=== PATIENT | male | born 1940 | race Caucasian/White ===

== ENCOUNTER 2017-12-31 19:34 | Inpatient (IN) | payer OTHER, BC ==
--- NOTE | 2017-12-31 19:39 | PDOC ---
History of Present Illness - History of Present Illness Initial Comments: 12/31/17 20:19 The patient is a 77 year old male with a significant past medical history of COPD, CAD, CVA, diabetes, HTN, hypercholesterolemia, and thyroid disease who presents to the ER with wheezing today. Patient states he had a cold over the past week and noticed the wheezing today. Patient states he was a former smoker for over 30 years, and smoked at least one pack per day. Patient states he had pneumonia in the past and was concerned about the wheezing today prompting him to come to the ER for an evaluation. Patient also admits to coughing white mucus occasionally. Patient denies having to use an inhaler in the past. The patient denies chest pain, shortness of breath, headache, and dizziness. Denies fever, chills, nausea, vomit, diarrhea, and constipation. Denies dysuria, frequency, urgency, and hematuria. Allergies: NKA Past surgical history: None reported. Social history: Former smoker. No reported drug or alcohol use. Adult ROS General: No fevers or chills, no weakness, no weight loss HEENT: No change in vision. No sore throat,. No ear pain CardioVascular: No chest pain or shortness of breath Respiratory: (+) Cough. (+) Wheezing. Gastrointestinal: no nausea, vomiting, diarrhea or constipation, No rectal bleeding Genitourinary: No dysuria, hematuria, or frequency Musculoskeletal: No joint or muscle pain or swelling Neurologic: No headache, vertigo, dizziness or loss of consciousness Psychiatric: nor depression Skin: No rashes or easy bruising Endocrine: no increased thirst or abnormal weight change Allergic: no skin or latex allergy All other systems reviewed and normal Adult Exam: General: (+) Morbidly obese.No acute distress HEENT: Throat: Normal, tonsils normal, no erythema or exudate Neck: Supple, no meningeal signs, no lymphadenopathy Eyes::Pupils equal reactive and round, extraocular motion intact Chest: Nontender to palpation Cardiac: S1-S2 normal, regular rate and rhythm, no murmurs rubs or gallops Respiratory: (+) Moderate left sided expiratory wheezing. (+) Mild expiratory wheezing on the right. (+) Decreased breath sounds bilaterally at the bases. Extremities: Warm, dry, no cyanosis, clubbing, or edema Skin: No rashes Neuro: Alert and oriented x3, nonfocal exam, grossly intact, normal gait Psych: Normal mood and affect <Mirela Pierre - Last Filed: 12/31/17 21:44> - General History Source: Patient Exam Limitations: No Limitations - History of Present Illness Initial Comments: 12/31/17 20:34 A portion of this note was documented by scribe services under my direction. I have reviewed the details of the note, within reason, and agree with the documentation. The case summary and management plan written by me. Chest x-ray no acute pathology EKG: Normal sinus rhythm at a rate is 72, first-degree AV block, no acute ST-T wave changes, left axis deviation when comparison with EKG on February 2015 no significant change. 12/31/17 21:11 Medical decision making: This is a 77-year-old male who comes in complaining of some shortness of breath and wheezing. Patient is also noted to have a dry nonproductive cough. Patient's EKG is unchanged from prior and his chest x-ray shows no acute pathology. Labs are sent for CBC, comp and EKG. Patient given a DuoNeb and some Decadron. Patient symptoms are most likely secondary to some COPD even though he denies history of COPD in the past. However given the fact that he is having some wheezing with a significant cardiac history I will rule out cardiac causes for his wheezing in addition to treating him. 12/31/17 21:40 Patient's heart squares 5 based on his age multiple risk factors and an abnormal EKG. Patient's troponin was measurable at 0.03. Patient wheezing is improved after a DuoNeb however I will bring him in to an observation bed overnight to rule him out and to continue to treat him for exacerbation of COPD Hospitalist was contacted and patient will be placed in observation telemetry bed Dr. Carr is the admitting hospitalist <Bird Dent I - Last Filed: 12/31/17 21:47> - General Chief Complaint: Respiratory Stated Complaint: WHEEZING Time Seen by Provider: 12/31/17 19:37 Past History <Mirela Pierre - Last Filed: 12/31/17 21:44> - Past Medical History Anemia: No Cardiac Disorders: Yes (CAD) CVA: Yes COPD: Yes Diabetes: Yes HTN: Yes Hypercholesterolemia: Yes Thyroid Disease: Yes - Surgical History Appendectomy: Yes Cardiac Surgery: Yes (BYPASS X5) - Suicide/Smoking/Psychosocial Hx Smoking Status: Yes Smoking History: Former smoker Have you smoked in the past 12 months: Yes Number of Cigarettes Smoked Daily: 10 If you are a former smoker, when did you quit?: 05/20 Cigars Per Day: 1 'Breaking Loose' booklet given: 07/08/15 Hx Alcohol Use: Yes Drug/Substance Use Hx: No Substance Use Type: Alcohol Hx Substance Use Treatment: No <Bird Dent I - Last Filed: 12/31/17 21:47> - Past Medical History Allergies/Adverse Reactions: Allergies Allergy/AdvReac Type Severity Reaction Status Date / Time No Known Allergies Allergy Verified 02/15/16 11:34 Home Medications: Ambulatory Orders Ascorbate Calcium/Bioflavonoid [Eileen-C 1,000 mg Tablet] 1 each PO DAILY Atorvastatin Ca [Lipitor] 40 mg PO HS 10/12/13 Levothyroxine [Synthroid -] 50 mcg PO DAILY 10/12/13 Potassium Chloride [K-Dur] 20 meq PO DAILY 01/08/14 Furosemide [Lasix -] 40 mg PO DAILY #60 04/22/14 Amlodipine Besylate [Norvasc -] 10 mg PO DAILY #30 tablet 02/19/15 Carbidopa/Levodopa [Carbidopa-Levo ER 50-200 Tab] 1 each PO TID 12/31/17 Meloxicam 7.5 mg PO DAILY 12/31/17 Metformin HCl [Metformin HCl ER] 500 mg PO BID 12/31/17 Olmesartan Medoxomil [Benicar (Nf)] 40 mg PO DAILY 12/31/17 Rabeprazole Sodium [Aciphex] 20 mg PO DAILY 12/31/17 Silodosin [Rapaflo] 4 mg PO DAILY 12/31/17 *Physical Exam - Vital Signs Last Vital Signs Temp Pulse Resp BP Pulse Ox 97.4 F L 88 20 173/83 H 97 12/31/17 19:36 12/31/17 19:36 12/31/17 19:36 12/31/17 19:36 12/31/17 19:36 <Mirela Pierre - Last Filed: 12/31/17 21:44> Heart Score/ECG Review - History History: Slightly suspicious - Electrocardiogram EKG: Non specific repolarization disturbance - Age Age: >/= 65 - Risk Factors Based on the list above the patient has:: >/=3 risk factors or Hx atherosclerotic disease - Troponin Troponin: </= normal limit - Score Heart Score - Total: 5 <Bird Dent I - Last Filed: 12/31/17 21:47> ED Treatment Course - LABORATORY CBC & Chemistry Diagram: 12/31/17 20:50 12/31/17 20:50 <Mirela Pierre - Last Filed: 12/31/17 21:44> - LABORATORY CBC & Chemistry Diagram: 12/31/17 20:50 12/31/17 20:50 <Bird Dent I - Last Filed: 12/31/17 21:47> *DC/Admit/Observation/Transfer - Attestations Scribe Attestion: 12/31/17 20:30 Documentation prepared by Mirela Pierre, acting as medical coordinator pesticide use for Bird Dent MD. <Mirela Pierre - Last Filed: 12/31/17 21:44> - Discharge Dispostion Decision to Admit order: Yes <Bird Dent I - Last Filed: 12/31/17 21:47> Diagnosis at time of Disposition: COPD exacerbation, ASHD (arteriosclerotic heart disease) - Referrals Referrals: James Wren MD [Primary Care Provider] - - Patient Instructions - Post Discharge Activity
[2017-12-31] MEDS ORDERED: ALBUTEROL SO4 2.5/IPRATROPIUM 0.5 INH SOL 3 ML VIAL.NEB. NEB ONE ×4 (20:42→21:51)
[2017-12-31] MEDS ORDERED: DEXAMETHASONE SOD PHOSPHATE 10 MG/1 ML VIAL IVPUSH ONE (20:42)
[2017-12-31] MEDS ORDERED: DEXAMETHASONE SOD PHOSPHATE 10 MG/1 ML VIAL ONE (20:46)
[2017-12-31 21:15] LABS: BASO % 1.1 % (0-2.0); EOS % 2.7 % (0-4.5); HEMOGLOBIN 13.9 GM/dl (11.7-16.9); LYMPH % 26.8 % (8-40); MCH 31.7 pg (25.7-33.7); MCHC 33.1 g/dl (32.0-35.9); MEAN CELL VOLUME 95.8 fl (80-96); MEAN PLT VOLUME 9.9 fl (7.5-11.1); MONO % 16.4 % (3.8-10.2); PLATELET COUNT 142 K/MM3 (134-434); RBC 4.39 M/mm3 (4.00-5.60); RDW 12.6 % (11.9-15.9); WHITE BLOOD COUNT 4.8 K/mm3 (4.0-10.8)
[2017-12-31 21:20] LABS: ALBUMIN 3.3 g/dl (3.5-5.0); ALK PHOS 82 U/L (32-92); ANION GAP 13 MMOL/L (8-16); BILIRUBIN,TOTAL 0.9 mg/dl (0.2-1.0); BLOOD UREA NITROGEN 21 mg/dl (7-18); CALCIUM 8.7 mg/dl (8.4-10.2); CHLORIDE 105 mmol/L (98-107); CO2 21 mmol/L (22-28); CREATININE 1.1 mg/dl (0.6-1.3); GLUCOSE,RANDOM 201 mg/dl (74-106); POTASSIUM 3.3 mmol/L (3.5-5.1); SGOT/AST 18 U/L (10-42); SGPT/ALT 5 U/L (10-40); SODIUM 139 mmol/L (136-145); TOT PROT 6.3 g/dl (6.4-8.3)
[2017-12-31] MEDS ORDERED: POTASSIUM CHLORIDE TABS 20 MEQ TABLET.ER (FP) PO ONE ×2 (22:07→22:09)
--- NOTE | 2017-12-31 22:08 | HP ---
Admitting History and Physical - Primary Care Physician PCP: James Wren - Admission Chief Complaint: SOB, Wheezing History of Present Illness: This is a 77 y/o man with a PMHx of COPD, CHF, CAD s/p CABG (2006), HTN, HLD, CVA, PVD, DM, Morbid Obesity, Hypothyroidism. Who presents to the ED with increased SOB and wheezing x today. Patient reports having URI symptoms 5 days ago and felt better today and decided to go out. Patient denies fever, chills, CP, palpitations, AP, N/V/D, constipation, dysuria. Patient denies recent sick contacts or travel. 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 Cardiovascular: Yes: CAD (CABAG x 5 2006 [place]), CHF, HTN, Hyperlipdemia, Other (Peripheral vascular disea Left leg stent Femoral and carotid bruits) Pulmonary: Yes: COPD, Pneumonia, Sleep Apnea (possible) Gastrointestinal: Yes: GERD, Other (H/O Splenic enlargement esophagitis Malave's) Hepatobiliary: Yes: Other (NAFLD) Heme/Onc: Yes: Thrombocytopenia (Noted after perforated appendix) Musculoskeletal: Yes: Osteoarthritis Rheumatology: Yes: Gout Endocrine: Yes: Hypothyroidism Dermatology: Yes: Psoriasis, Squamous Cell - Past Surgical History Past Surgical History: Yes: Appendectomy, CABG, Stent - Smoking History Smoking history: Former smoker Have you smoked in the past 12 months: Yes Aproximately how many cigarettes per day: 10 If you are a former smoker, when did you quit?: 05/20 - Alcohol/Substance Use Hx Alcohol Use: Yes History of Substance Use: reports: None - Social History Usual Living Arrangement: Yes: With Child ADL: Independent 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 History of Recent Travel: No Home Medications - Allergies Allergies/Adverse Reactions: Allergies Allergy/AdvReac Type Severity Reaction Status Date / Time No Known Allergies Allergy Verified 02/15/16 11:34 - Home Medications Home Medications: Ambulatory Orders Ascorbate Calcium/Bioflavonoid [Eileen-C 1,000 mg Tablet] 1 each PO DAILY Atorvastatin Ca [Lipitor] 40 mg PO HS 10/12/13 Levothyroxine [Synthroid -] 50 mcg PO DAILY 10/12/13 Potassium Chloride [K-Dur] 20 meq PO DAILY 10/07/14 Furosemide [Lasix -] 40 mg PO DAILY #60 04/22/14 Amlodipine Besylate [Norvasc -] 10 mg PO DAILY #30 tablet 02/19/15 Carbidopa/Levodopa [Carbidopa-Levo ER 50-200 Tab] 1 each PO TID 12/31/17 Meloxicam 7.5 mg PO DAILY 12/31/17 Metformin HCl [Metformin HCl ER] 500 mg PO BID 12/31/17 Olmesartan Medoxomil [Benicar (Nf)] 40 mg PO DAILY 12/31/17 Rabeprazole Sodium [Aciphex] 20 mg PO DAILY 12/31/17 Silodosin [Rapaflo] 4 mg PO DAILY 12/31/17 Family Disease History - Family Disease History Family Disease History: Other: Father ( due to aneurysm (in chest?)) Review of Systems - Review of Systems Constitutional: reports: No Symptoms Eyes: reports: No Symptoms HENT: reports: No Symptoms Neck: reports: No Symptoms Cardiovascular: reports: Shortness of Breath Respiratory: reports: Cough, SOB, SOB on Exertion, Wheezing Gastrointestinal: reports: No Symptoms Genitourinary: reports: No Symptoms Breasts: reports: No Symptoms Reported Musculoskeletal: reports: No Symptoms Integumentary: reports: No Symptoms Neurological: reports: No Symptoms Endocrine: reports: No Symptoms Hematology/Lymphatic: reports: No Symptoms Psychiatric: reports: No Symptoms Physical Examination Vital Signs: Vital Signs Temperature 97.4 F L 12/31/17 19:36 Pulse Rate 88 12/31/17 19:36 Respiratory Rate 20 12/31/17 19:36 Blood Pressure 173/83 H 12/31/17 19:36 O2 Sat by Pulse Oximetry (%) 97 12/31/17 19:36 Constitutional: Yes: Well Nourished, No Distress, Calm, Obese Eyes: Yes: WNL, Conjunctiva Clear, EOM Intact, PERRL HENT: Yes: WNL, Atraumatic, Normocephalic Neck: Yes: WNL, Supple, Trachea Midline Cardiovascular: Yes: WNL, Regular Rate and Rhythm, S1, S2 Respiratory: Yes: On Nasal O2, Rhonchi, SOB, SOB on Exertion, Wheezes Gastrointestinal: Yes: WNL, Normal Bowel Sounds, Soft, Abdomen, Obese Renal/: Yes: WNL Breast(s): Yes: WNL Musculoskeletal: Yes: WNL Extremities: Yes: WNL Edema: Yes Edema: LLE: 2+, RLE: 2+ Peripheral Pulses WNL: Yes Peripheral Pulses: Left Doralis Pedis: 2+, Right Dorsalis Pedis: 2+ Integumentary: Yes: Other (macular flattened brown lesions noted to lumbar region) Neurological: Yes: Cran Nerves II-XII Intact, Tremors ...Motor Strength: WNL Psychiatric: Yes: WNL, Alert, Oriented Labs: CBC, BMP 12/31/17 20:50 12/31/17 20:50 Laboratory Results - last 24 hr 12/31/17 12/31/17 12/31/17 20:50 20:50 20:50 WBC 4.8 RBC 4.39 Hgb 13.9 Hct 42.0 MCV 95.8 MCH 31.7 MCHC 33.1 RDW 12.6 Plt Count 142 MPV 9.9 Absolute Neuts (auto) 2.5 Neutrophils % 53.0 Lymphocytes % 26.8 Monocytes % 16.4 H Eosinophils % 2.7 Basophils % 1.1 Sodium 139 Potassium 3.3 L Chloride 105 Carbon Dioxide 21 L D Anion Gap 13 BUN 21 H Creatinine 1.1 Creat Clearance w eGFR > 60 Random Glucose 201 H Calcium 8.7 Total Bilirubin 0.9 AST 18 D ALT 5 L D Alkaline Phosphatase 82 Creatine Kinase 72 Troponin I Total Protein 6.3 L Albumin 3.3 L 12/31/17 21:00 WBC RBC Hgb Hct MCV MCH MCHC RDW Plt Count MPV Absolute Neuts (auto) Neutrophils % Lymphocytes % Monocytes % Eosinophils % Basophils % Sodium Potassium Chloride Carbon Dioxide Anion Gap BUN Creatinine Creat Clearance w eGFR Random Glucose Calcium Total Bilirubin AST ALT Alkaline Phosphatase Creatine Kinase Troponin I 0.03 D Total Protein Albumin Intake & Output 12/29/17 12/30/17 12/31/17 01/01/18 23:59 23:59 23:59 23:59 Weight 122.924 kg Current Medications Generic Name Dose Route Start Last Admin Trade Name Freq PRN Reason Stop Dose Admin Acetaminophen 650 mg 01/01/18 03:14 Tylenol - PO Q6H PRN PAIN LEVEL 1-5 OR FEVER Albuterol/Ipratropium 1 amp 01/01/18 08:00 Duoneb - NEB RQID STEPHON Amlodipine Besylate 10 mg 01/01/18 10:00 Norvasc - PO DAILY STEPHON Atorvastatin Calcium 40 mg 12/31/17 23:49 01/01/18 00:08 Lipitor - PO 40 mg HS STEPHON Administration Carbidopa/Levodopa 1 combo 12/31/17 23:45 01/01/18 00:08 Sinemet *Cr* 50/200 - PO 1 combo TID STEPHON Administration Furosemide 40 mg 01/01/18 10:00 Lasix - PO DAILY [facility] Levothyroxine Sodium 50 mcg 01/01/18 07:00 Synthroid - PO DAILY@0700 [facility] Metformin HCl 500 mg 01/01/18 07:00 Glucophage Xr - PO DAILY@0700 [facility] Methylprednisolone Sodium Succinate 40 mg 01/01/18 03:00 01/01/18 03:05 Solu-Medrol - IVPUSH 40 mg Q6H-IV STEPHON Administration Non-Formulary Medication 7.5 mg 01/01/18 10:00 Meloxicam [Meloxicam] PO DAILY [facility] Pantoprazole Sodium 40 mg 01/01/18 10:00 Protonix - PO DAILY [facility] Potassium Chloride 20 meq 01/01/18 10:00 K-Dur - PO DAILY [facility] Tamsulosin HCl 0.4 mg 01/01/18 08:30 Flomax - PO DAILY@0830 [facility] Valsartan 320 mg 01/01/18 10:00 Diovan - PO DAILY [facility] Imaging - Results Chest X-ray: Image Reviewed EKG: Report Reviewed, Image Reviewed Problem List - Problems (1) COPD exacerbation Code(s): J44.1 - CHRONIC OBSTRUCTIVE PULMONARY DISEASE W (ACUTE) EXACERBATION (2) Shortness of breath Code(s): R06.02 - SHORTNESS OF BREATH (3) ASHD (arteriosclerotic heart disease) Code(s): I25.10 - ATHSCL HEART DISEASE OF [place] CORONARY ARTERY W/O ANG PCTRS (4) Diabetes mellitus Code(s): E11.9 - TYPE 2 DIABETES MELLITUS WITHOUT COMPLICATIONS (5) Hypertension Code(s): I10 - ESSENTIAL (PRIMARY) HYPERTENSION (6) CVA (cerebral vascular accident) Code(s): I63.9 - CEREBRAL INFARCTION, UNSPECIFIED Qualifiers: CVA mechanism: unspecified Qualified Code(s): I63.9 - Cerebral infarction, unspecified (7) Dyslipidemia Code(s): E78.5 - HYPERLIPIDEMIA, UNSPECIFIED (8) GERD (gastroesophageal reflux disease) Code(s): K21.9 - GASTRO-ESOPHAGEAL REFLUX DISEASE WITHOUT ESOPHAGITIS (9) Hypothyroid Code(s): E03.9 - HYPOTHYROIDISM, UNSPECIFIED (10) Peripheral vascular disease Code(s): I73.9 - PERIPHERAL VASCULAR DISEASE, UNSPECIFIED Assessment/Plan This is a 77 y/o man with a PMHx of: COPD, CAD s/p CABG, CHF, HTN, HLD, DM, CVA , PVD, Hypothyroidism, Morbid Obesity. Placed on Telemetry Observation for Acute COPD Exacerbation for further evaluation of their emergent condition. Plan: 1. Pulm: Acute COPD Exacerbation- Likely secondary to recent URI, Duonebs, Decadron given in ED, Will continue Duonebs, Solumederol w/taper, Appreciate Pulmonology consult, O2, monitor Peakflow, ordered Blood Cultures x2, Influenza Swab, no leukocytosis, no neutrophilia, pt is afebrile will not start ABX now, will defer to Pulm, repeat CBC in am 2. Cardiovascular: CAD, CHF, HTN, HLD, PVD- Continue cardiac monitoring, Trop I 0.03, EKG NSR with 1st degree block, no acute ST or TWI, no change compared to prior tracing, continue home meds, monitor renal function, monitor BMP, repeat Trop I in am, f/u with Cardiology in outpatient upon d/c 3. Endocrine: DM, Hypothyroidism, Morbid Obesity BMI 41.2- suboptimal controlled , BGMs, ISS, continue home meds, HgbA1c,TSH in am, Consider RD, Computer Forensics Technician, pt. counseled on weight reduction and clean eating, patient is amendable, patient would benefit with Endocrinology consult in outpatient setting upon d/c 4. Neuro: CVA, stable, fall precautions, continue Aggrenox 5. FEN- Fluid Restrictions 1L, K repleted continue continue to monitor, Low Na, Diabetic Diet 6. DVT, GI ppx- OOB, SCDs, Protonix, Continue Aggrenox Code Status: Full Code Dispo: Tele Observation Visit type - Emergency Visit Emergency Visit: Yes ED Registration Date: 12/31/17 Care time: The patient presented to the Emergency Department on the above date and was hospitalized for further evaluation of their emergent condition. - New Patient This patient is new to me today: Yes Date on this admission: 12/31/17 - Critical Care Critical Care patient: No Hospitalist Screening - Colonoscopy Questionnaire Colonoscopy Questionnaire: Colonoscopy Questionnaire - Patient: 50 - 75 years old and never had a screening colonoscopy: Unknown History of colon or rectal polyps, or CA: Unknown History of IBD, Crohn's disease or UC: Unknown History of abdominal radiation therapy as a child: Unknown - Relative: 1 with colon or rectal CA, or polyps at age 60 or younger: Unknown Colon or rectal CA diagnosed at age 45 or younger: Unknown Multiple relatives with colon or rectal CA: Unknown - Outcome: Screening Result: Negative Screen
--- NOTE | 2017-12-31 22:59 | EKG ---
Test Reason : Blood Pressure : / mmHG Vent. Rate : 072 BPM Atrial Rate : 072 BPM P-R Int : 228 ms QRS Dur : 080 ms QT Int : 388 ms P-R-T Axes : 057 -31 019 degrees QTc Int : 424 ms SINUS RHYTHM WITH 1ST DEGREE A-V BLOCK LEFT AXIS DEVIATION VOLTAGE CRITERIA FOR LEFT VENTRICULAR HYPERTROPHY ABNORMAL ECG WHEN COMPARED WITH ECG OF 16-FEB-2015 10:21, NO SIGNIFICANT CHANGE WAS FOUND Confirmed by NEL BARKLEY MD ([id number]) on 12/31/2017 10:59:09 PM Referred By: [facility] Confirmed By:NEL BARKLEY MD
[2017-12-31 23:18] VITALS: BMI 41.2
[2017-12-31] MEDS ORDERED: ASPIRIN/DIPYRIDAMOLE 25 MG/200 MG CAPSULE (FP) PO ONE (23:54)
[2018-01-01] MEDS: ATORVASTATIN CA 40 MG TABLET (FP) PO SCH ×2 (00:08→21:29)
[2018-01-01] MEDS: methylPREDNISolone NA SUCC 40 MG/1 ML VIAL IVPUSH SCH ×3 (03:05→18:19)
[2018-01-01] MEDS ORDERED: ACETAMINOPHEN 325 MG TABLET (FP) PO PRN (03:14)
[2018-01-01] MEDS ORDERED: INSULIN (NOVOLOG) ASPART 100 UNITS/ML 10ML VIAL ONE ×4 (06:18→21:27)
[2018-01-01] MEDS: INSULIN SLIDING SCALE (NOVOLOG) 1 VIAL SQ SCH ×4 (06:20→21:29)
[2018-01-01] MEDS: LEVOTHYROXINE NA 50 MCG TABLET (FP) PO SCH (06:20)
[2018-01-01] MEDS: TAMSULOSIN HCL 0.4 MG CAP.ER.24H (FP) PO SCH (08:38)
[2018-01-01] MEDS: ALBUTEROL SO4 2.5/IPRATROPIUM 0.5 INH SOL 3 ML VIAL.NEB. NEB SCH ×4 (08:38→20:16)
[2018-01-01] MEDS: VALSARTAN 160 MG TABLET (UD) PO SCH (09:11)
[2018-01-01] MEDS: FUROSEMIDE 20 MG TABLET (FP) PO SCH (09:11)
[2018-01-01] MEDS: PANTOPRAZOLE 40 MG TABLET (FP) PO SCH (09:11)
[2018-01-01] MEDS: amLODIPine BESYLATE 10 MG TABLET (FP) PO SCH (09:12)
[2018-01-01] MEDS: POTASSIUM CHLORIDE TABS 20 MEQ TABLET.ER (FP) PO SCH (09:12)
[2018-01-01 09:36] LABS: INR 1.03 (0.82-1.09); PROTHROMBIN TIME (PATIENT) 11.5 SEC (10.2-13.0)
[2018-01-01 09:38] LABS: EOS % 0.2 % (0-4.5); HEMATOCRIT 39.3 % (35.4-49); HEMOGLOBIN 13.1 GM/dl (11.7-16.9); LYMPH % 15.1 % (8-40); MCH 32.1 pg (25.7-33.7); MCHC 33.3 g/dl (32.0-35.9); MEAN CELL VOLUME 96.3 fl (80-96); MEAN PLT VOLUME 9.8 fl (7.5-11.1); MONO % 4.3 % (3.8-10.2); NEUT % 80.4 % (42.8-82.8); PLATELET COUNT 131 K/MM3 (134-434); RBC 4.09 M/mm3 (4.00-5.60); RDW 12.6 % (11.9-15.9); WHITE BLOOD COUNT 3.9 K/mm3 (4.0-10.8)
[2018-01-01 09:51] LABS: ANION GAP 9 MMOL/L (8-16); BLOOD UREA NITROGEN 21 mg/dl (7-18); CALCIUM 8.8 mg/dl (8.4-10.2); CHLORIDE 105 mmol/L (98-107); CO2 21 mmol/L (22-28); MAGNESIUM 1.7 mg/dL (1.8-2.4); PHOSPHOROUS 2.2 mg/dl (2.5-4.6); POTASSIUM 4.1 mmol/L (3.5-5.1); SODIUM 135 mmol/L (136-145)
[2018-01-01] MEDS ORDERED: PATIENT'S OWN MEDICATION (NON-FORMULARY) (Meloxicam [Meloxicam] 7.5 MG) PO SCH (10:00)
[2018-01-01 10:04] LABS: GLUCOSE,RANDOM 330 mg/dl (74-106)
--- NOTE | 2018-01-01 11:27 | PN ---
Physical Exam: SUBJECTIVE: Patient seen and examined, Pt reports feeling better, SOB improved, intermittent productive cough with clear sputum,denies cp,palpitations, abdominal pain, N/V/D or urinary symptoms. OBJECTIVE: Vital Signs Period Temp Pulse Resp BP Sys/Borjas Pulse Ox Last 24 Hr 97 F-98.2 F 83-108 18-20 128-173/59-83 93-99 GENERAL: The patient is awake, alert, and fully oriented, in no acute distress. HEAD: Normal with no signs of trauma. EYES: PERRL, extraocular movements intact, sclera anicteric, conjunctiva clear. No ptosis. ENT: Ears normal, nares patent, oropharynx clear without exudates, moist mucous membranes. NECK: Trachea midline, full range of motion, supple. LUNGS: Breath sounds diminished, mild exp wheezes, no crackles, no accessory muscle use. HEART: Regular rate and rhythm, S1, S2 without murmur, rub or gallop. ABDOMEN: Soft, nontender, nondistended, normoactive bowel sounds, no guarding, no rebound, no hepatosplenomegaly, no masses. EXTREMITIES: 2+ pulses, warm, well-perfused, no edema. NEUROLOGICAL: Cranial nerves II through XII grossly intact. Normal speech, gait not observed. PSYCH: Normal mood, normal affect. SKIN: Warm, dry, normal turgor, no rashes or lesions noted Laboratory Results - last 24 hr 12/31/17 12/31/17 12/31/17 20:50 20:50 20:50 WBC 4.8 RBC 4.39 Hgb 13.9 Hct 42.0 MCV 95.8 MCH 31.7 MCHC 33.1 RDW 12.6 Plt Count 142 MPV 9.9 Absolute Neuts (auto) 2.5 Neutrophils % 53.0 Lymphocytes % 26.8 Monocytes % 16.4 H Eosinophils % 2.7 Basophils % 1.1 PT with INR INR Sodium 139 Potassium 3.3 L Chloride 105 Carbon Dioxide 21 L D Anion Gap 13 BUN 21 H Creatinine 1.1 Creat Clearance w eGFR > 60 POC Glucometer Random Glucose 201 H Calcium 8.7 Phosphorus Magnesium Total Bilirubin 0.9 AST 18 D ALT 5 L D Alkaline Phosphatase 82 Creatine Kinase 72 Troponin I Total Protein 6.3 L Albumin 3.3 L 12/31/17 01/01/18 01/01/18 21:00 05:21 07:00 WBC 3.9 L RBC 4.09 Hgb 13.1 Hct 39.3 MCV 96.3 H MCH 32.1 MCHC 33.3 RDW 12.6 Plt Count 131 L MPV 9.8 Absolute Neuts (auto) 3.1 Neutrophils % 80.4 D Lymphocytes % 15.1 D Monocytes % 4.3 Eosinophils % 0.2 D Basophils % 0.0 PT with INR INR Sodium Potassium Chloride Carbon Dioxide Anion Gap BUN Creatinine Creat Clearance w eGFR POC Glucometer 297 Random Glucose Calcium Phosphorus Magnesium Total Bilirubin AST ALT Alkaline Phosphatase Creatine Kinase Troponin I 0.03 D Total Protein Albumin 01/01/18 01/01/18 01/01/18 07:00 07:00 07:00 WBC RBC Hgb Hct MCV MCH MCHC RDW Plt Count MPV Absolute Neuts (auto) Neutrophils % Lymphocytes % Monocytes % Eosinophils % Basophils % PT with INR 11.5 INR 1.03 Sodium 135 L Potassium 4.1 D Chloride 105 Carbon Dioxide 21 L Anion Gap 9 BUN 21 H Creatinine 1.0 Creat Clearance w eGFR > 60 POC Glucometer Random Glucose 330 H* D Calcium 8.8 Phosphorus 2.2 L Magnesium 1.7 L Total Bilirubin AST ALT Alkaline Phosphatase Creatine Kinase Troponin I 0.04 D Total Protein Albumin 01/01/18 11:03 WBC RBC Hgb Hct MCV MCH MCHC RDW Plt Count MPV Absolute Neuts (auto) Neutrophils % Lymphocytes % Monocytes % Eosinophils % Basophils % PT with INR INR Sodium Potassium Chloride Carbon Dioxide Anion Gap BUN Creatinine Creat Clearance w eGFR POC Glucometer 296 Random Glucose Calcium Phosphorus Magnesium Total Bilirubin AST ALT Alkaline Phosphatase Creatine Kinase Troponin I Total Protein Albumin Active Medications Generic Name Dose Route Start Last Admin Trade Name Freq PRN Reason Stop Dose Admin Acetaminophen 650 mg 01/01/18 03:14 Tylenol - PO Q6H PRN PAIN LEVEL 1-5 OR FEVER Albuterol/Ipratropium 1 amp 01/01/18 08:00 01/01/18 08:38 Duoneb - NEB 1 amp RQID STEPHON Administration Amlodipine Besylate 10 mg 01/01/18 10:00 01/01/18 09:12 Norvasc - PO 10 mg DAILY STEPHON Administration Atorvastatin Calcium 40 mg 12/31/17 23:49 01/01/18 00:08 Lipitor - PO 40 mg HS STEHPON Administration Carbidopa/Levodopa 1 combo 12/31/17 23:45 01/01/18 06:20 Sinemet *Cr* 50/200 - PO 1 combo TID STEPHON Administration Dipyridamole/Aspirin 1 combo 01/01/18 10:00 Aggrenox - PO BID STEPHON Furosemide 40 mg 01/01/18 10:00 01/01/18 09:11 Lasix - PO 40 mg DAILY STEPHON Administration Insulin Aspart 1 vial 01/01/18 07:00 01/01/18 11:08 Novolog Vial Sliding Scale - SQ 6 units TIDAC STEPHON Administration Protocol Levothyroxine Sodium 50 mcg 01/01/18 07:00 01/01/18 06:20 Synthroid - PO 50 mcg DAILY@0700 STEPHON Administration Metformin HCl 500 mg 01/01/18 07:00 01/01/18 06:20 Glucophage Xr - PO 500 mg DAILY@0700 STEPHON Administration Methylprednisolone Sodium Succinate 40 mg 01/01/18 03:00 01/01/18 08:38 Solu-Medrol - IVPUSH 40 mg Q6H-IV STEPHON Administration Non-Formulary Medication 7.5 mg 01/01/18 10:00 Meloxicam [Meloxicam] PO DAILY STEPHON Pantoprazole Sodium 40 mg 01/01/18 10:00 01/01/18 09:11 Protonix - PO 40 mg DAILY STEPHON Administration Potassium Chloride 20 meq 01/01/18 10:00 01/01/18 09:12 K-Dur - PO 20 meq DAILY STEPHON Administration Tamsulosin HCl 0.4 mg 01/01/18 08:30 01/01/18 08:38 Flomax - PO 0.4 mg DAILY@0830 STEPHON Administration Valsartan 320 mg 01/01/18 10:00 01/01/18 09:11 Diovan - PO 320 mg DAILY STEPHON Administration ASSESSMENT/PLAN: This is a 77 y/o man with a PMHx of: COPD, CAD s/p CABG, CHF, HTN,? Parkinson's disease,HLD, DM, CVA, PVD, Hypothyroidism, Morbid Obesity. Placed on Telemetry Observation for Acute COPD Exacerbation for further evaluation of their emergent condition. *Acute COPD Exacerbation- Likely secondary to recent URI -cxr- No evidence of pneumonia - s/p Duonebs and Decadron given in ED - Will continue Duonebs, Solumederol w/taper -Pulmonology consult requested by Dr. Suarez - will check pulse ox - Blood Cultures x2 doen, report pending - Influenza ruled out no leukocytosis, afebrile * Hx of CAD, CHF, - Trop neg - asymptomatic - EKG NSR with 1st degree block, no acute ST or TWI -will cont on home meds - BNP level pending *HTN- BP mildly elevated - will cont on home dose Norvasc and Diovan - will monitor BP closely * HLD- will cont on Statin * PVD- will cont on Aggrenox * DM - Hgb Alc pending - FS Ac& HS - will cont on home dose Glucophage - will cont on Lispro sliding scale -out pt Endocrinology consult * Hypothyroidism - will cont on Synthroid - TSH level pending * CVA, stable, -will continue Aggrenox and Statin *Parkinson's disease on Sinemet *FEN- Fluid Restrictions 1L K- Stable, s/p replaced , Mg replaced Low Na, Diabetic Diet * DVT: OOB, SCDs and Aggrenox GI ppx- Protonix Code Status: Full Code Visit type - Emergency Visit Emergency Visit: Yes ED Registration Date: 12/31/17 Care time: The patient presented to the Emergency Department on the above date and was hospitalized for further evaluation of their emergent condition. - New Patient This patient is new to me today: Yes Date on this admission: 01/01/18 - Critical Care Critical Care patient: No
[2018-01-01] MEDS: ASPIRIN/DIPYRIDAMOLE 25 MG/200 MG CAPSULE (FP) PO SCH ×2 (11:43→21:29)
[2018-01-01] MEDS ORDERED: MAGNESIUM SULF 50% (8.12 MEQ/2 ML-1 GM VIAL) IVPB ONE (12:00)
[2018-01-01 12:17] LABS: N-TERMINAL BNP 235.2 pg/ml (5-450)
--- NOTE | 2018-01-01 17:04 | CON.PULM ---
Consult Consult Specialty:: PULMONARY Referred by:: PRESTON Edwards Reason for Consultation:: COPD exacerbation - History of Present Illness Chief Complaint: shortness of breath History of Present Illness: 77yo male with h/o HTN, DM, hypercholesterolemia, COPD, CAD s/p CABG, h/o CVA, Parkinsons Disease who presents with worsening shortness of breath x 5 days. He states he had URI symptoms preceding the shortness of breath and began wheezing and coughing up white sputum. No fevers, chills or sweats. Grandson is sick as well. He is a former long time smoker, started at age 5, smoked 1-2 PPD until 2002. Was on 2 inhalers in the past but insurance stopped covering 5 years ago so he stopped. a. 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 Cardio/Vascular: Yes: CAD (CABAG x 5 2006 Flom), CHF, HTN, Hyperlipdemia, Other (Peripheral vascular disea Left leg stent Femoral and carotid bruits) Pulmonary: Yes: COPD, Pneumonia, Sleep Apnea (possible) Gastrointestinal: Yes: GERD, Other (H/O Splenic enlargement esophagitis Malave's) Hepatobiliary: Yes: Other (NAFLD) Musculoskeletal: Yes: Osteoarthritis Rheumatology: Yes: Gout Endocrine: Yes: Hypothyroidism Dermatology: Yes: Psoriasis, Squamous Cell - Past Surgical History Past Surgical History: Yes: Appendectomy, CABG, Stent - Alcohol/Substance Use Hx Alcohol Use: Yes History of Substance Use: reports: None - Smoking History Smoking history: Former smoker Have you smoked in the past 12 months: Yes Aproximately how many cigarettes per day: 10 If you are a former smoker, when did you quit?: 05/20 - Social History ADL: Independent 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 History of Recent Travel: No Home Medications - Allergies Allergies/Adverse Reactions: Allergies Allergy/AdvReac Type Severity Reaction Status Date / Time No Known Allergies Allergy Verified 02/15/16 11:34 - Home Medications Home Medications: Ambulatory Orders Ascorbate Calcium/Bioflavonoid [Eileen-C 1,000 mg Tablet] 1 each PO DAILY Atorvastatin Ca [Lipitor] 40 mg PO HS 10/12/13 Levothyroxine [Synthroid -] 50 mcg PO DAILY 10/12/13 Potassium Chloride [K-Dur] 20 meq PO DAILY 01/08/14 Furosemide [Lasix -] 40 mg PO DAILY #60 04/22/14 Amlodipine Besylate [Norvasc -] 10 mg PO DAILY #30 tablet 02/19/15 Carbidopa/Levodopa [Carbidopa-Levo ER 50-200 Tab] 1 each PO TID 12/31/17 Meloxicam 7.5 mg PO DAILY 12/31/17 Metformin HCl [Metformin HCl ER] 500 mg PO BID 12/31/17 Olmesartan Medoxomil [Benicar (Nf)] 40 mg PO DAILY 12/31/17 Rabeprazole Sodium [Aciphex] 20 mg PO DAILY 12/31/17 Silodosin [Rapaflo] 4 mg PO DAILY 12/31/17 Family Disease History - Family Disease History Family Disease History: Other: Father ( due to aneurysm (in chest?)) Review of Systems - Review of Systems Constitutional: reports: Weakness. denies: Chills, Fever Eyes: denies: Recent Change in Vision HENT: denies: Nasal Congestion, Throat Pain Neck: denies: Stiffness, Tenderness Cardiovascular: reports: Edema, Shortness of Breath. denies: Chest Pain, Palpitations Respiratory: reports: Cough, Exercise Intolerance, SOB on Exertion, Wheezing. denies: Hemoptysis Gastrointestinal: denies: Abdominal Pain, Nausea, Vomiting Genitourinary: denies: Dysuria, Hematuria Neurological: denies: Dizziness, Headache Endocrine: denies: Unexplained Weight Loss Physical Exam Vital Sings: Vital Signs Temperature 98.4 F 01/01/18 14:09 Pulse Rate 103 H 01/01/18 14:09 Respiratory Rate 19 01/01/18 14:52 Blood Pressure 128/50 L 01/01/18 14:09 O2 Sat by Pulse Oximetry (%) 98 01/01/18 14:52 Constitutional: Yes: Calm Eyes: Yes: Conjunctiva Clear, EOM Intact HENT: Yes: Atraumatic, Normocephalic Neck: Yes: Supple, Trachea Midline Cardiovascular: Yes: Regular Rate and Rhythm Respiratory: Yes: Rhonchi (scattered) ...Clubbing: No Gastrointestinal: Yes: Normal Bowel Sounds, Soft. No: Tenderness Edema: Yes Neurological: Yes: Alert, Oriented Labs: CBC, BMP 01/01/18 07:00 01/01/18 07:00 Imaging - Results Chest X-ray: Report Reviewed, Image Reviewed (no infiltrates) Problem List - Problems (1) COPD exacerbation Code(s): J44.1 - CHRONIC OBSTRUCTIVE PULMONARY DISEASE W (ACUTE) EXACERBATION (2) ASHD (arteriosclerotic heart disease) Code(s): I25.10 - ATHSCL HEART DISEASE OF [place] CORONARY ARTERY W/O ANG PCTRS (3) Diabetes mellitus Code(s): E11.9 - TYPE 2 DIABETES MELLITUS WITHOUT COMPLICATIONS (4) Dyslipidemia Code(s): E78.5 - HYPERLIPIDEMIA, UNSPECIFIED (5) Hypertension Code(s): I10 - ESSENTIAL (PRIMARY) HYPERTENSION (6) Hypothyroid Code(s): E03.9 - HYPOTHYROIDISM, UNSPECIFIED Assessment/Plan Acute COPD Exacerbation CAD s/p CABG LV Diastolic Dysfunction HTN DM Hypercholesterolemia h/o CVA Parkinsons Disease Hypothyroidism Obstructive Sleep Apnea - agree with IV medrol - inhaled bronchodilators standing and PRN - O2 to keep SpO2 >90% - continue cardiac meds - will need outpt PFTs and f/u - DVT prophylaxis Thank you for this consult Ian Prince MD
[2018-01-01] MEDS ORDERED: ALBUTEROL SO4 0.083% IH SOL 2.5 MG/3 ML VIAL.NEB. NEB PRN (17:09)
[2018-01-01] MEDS ORDERED: FAMOTIDINE 20 MG TABLET PO SCH (22:00)
[2018-01-02] MEDS: methylPREDNISolone NA SUCC 40 MG/1 ML VIAL IVPUSH SCH ×3 (02:32→17:19)
[2018-01-02] MEDS ORDERED: INSULIN (NOVOLOG) ASPART 100 UNITS/ML 10ML VIAL ONE ×3 (06:09→16:59)
[2018-01-02] MEDS: LEVOTHYROXINE NA 50 MCG TABLET (FP) PO SCH (06:10)
[2018-01-02] MEDS: INSULIN SLIDING SCALE (NOVOLOG) 1 VIAL SQ SCH ×4 (06:11→21:02)
--- NOTE | 2018-01-02 07:54 | PN ---
Physical Exam: SUBJECTIVE: Patient seen and examined, reports less cough and dyspnea upon exertion OBJECTIVE: patient is a 77 y/o morbidly obese man with a PMHx of: COPD, CAD s/ p CABG, CHF, HTN, ? Parkinson's disease ,HLD, DM, CVA, PVD, and Hypothyroidism, . Placed on Telemetry Observation for Acute COPD Exacerbation for further evaluation of their emergent condition. Vital Signs Period Temp Pulse Resp BP Sys/Borjas Pulse Ox Last 24 Hr 97.5 F-98.5 F 85-108 19-20 127-171/50-72 95-98 GENERAL: The patient is awake, alert, and fully oriented, in no acute distress. HEAD: Normal with no signs of trauma. EYES: PERRL, extraocular movements intact, sclera anicteric, conjunctiva clear. No ptosis. ENT: Ears normal, nares patent, oropharynx clear without exudates, moist mucous membranes. NECK: Trachea midline, full range of motion, supple. LUNGS: Breath sounds equal, mild inspiratory wheeze billaterally to apexes, diminished to bases, no crackles, no accessory muscle use. HEART: Regular rate and rhythm, S1, S2 without murmur, rub or gallop. ABDOMEN: Soft, nontender, nondistended, normoactive bowel sounds, no guarding, no rebound, no hepatosplenomegaly, no masses. EXTREMITIES: 2+ pulses, warm, well-perfused, no edema. NEUROLOGICAL: Cranial nerves II through XII grossly intact. Normal speech, gait not observed. PSYCH: Normal mood, normal affect. SKIN: Warm, dry, normal turgor, no rashes or lesions noted Laboratory Results - last 24 hr 01/01/18 01/01/18 01/01/18 07:00 07:00 07:00 WBC 3.9 L RBC 4.09 Hgb 13.1 Hct 39.3 MCV 96.3 H MCH 32.1 MCHC 33.3 RDW 12.6 Plt Count 131 L MPV 9.8 Absolute Neuts (auto) 3.1 Neutrophils % 80.4 D Lymphocytes % 15.1 D Monocytes % 4.3 Eosinophils % 0.2 D Basophils % 0.0 PT with INR INR Sodium 135 L Potassium 4.1 D Chloride 105 Carbon Dioxide 21 L Anion Gap 9 BUN 21 H Creatinine 1.0 Creat Clearance w eGFR > 60 POC Glucometer Random Glucose 330 H* D Hemoglobin A1c % 7.1 H Calcium 8.8 Phosphorus 2.2 L Magnesium 1.7 L Troponin I B-Natriuretic Peptide 235.2 TSH 1.28 01/01/18 01/01/18 01/01/18 07:00 07:00 11:03 WBC RBC Hgb Hct MCV MCH MCHC RDW Plt Count MPV Absolute Neuts (auto) Neutrophils % Lymphocytes % Monocytes % Eosinophils % Basophils % PT with INR 11.5 INR 1.03 Sodium Potassium Chloride Carbon Dioxide Anion Gap BUN Creatinine Creat Clearance w eGFR POC Glucometer 296 Random Glucose Hemoglobin A1c % Calcium Phosphorus Magnesium Troponin I 0.04 D B-Natriuretic Peptide TSH 01/01/18 01/01/18 01/02/18 16:59 21:12 06:04 WBC RBC Hgb Hct MCV MCH MCHC RDW Plt Count MPV Absolute Neuts (auto) Neutrophils % Lymphocytes % Monocytes % Eosinophils % Basophils % PT with INR INR Sodium Potassium Chloride Carbon Dioxide Anion Gap BUN Creatinine Creat Clearance w eGFR POC Glucometer 329 347 269 Random Glucose Hemoglobin A1c % Calcium Phosphorus Magnesium Troponin I B-Natriuretic Peptide TSH Active Medications Generic Name Dose Route Start Last Admin Trade Name Freq PRN Reason Stop Dose Admin Acetaminophen 650 mg 01/01/18 03:14 Tylenol - PO Q6H PRN PAIN LEVEL 1-5 OR FEVER Albuterol Sulfate 1 amp 01/01/18 17:09 Ventolin 0.083% Nebulizer Soln - NEB Q4H PRN SHORT OF BREATH/WHEEZING Albuterol/Ipratropium 1 amp 01/01/18 08:00 01/01/18 20:16 Duoneb - NEB 1 amp RQID STEPHON Administration Amlodipine Besylate 10 mg 01/01/18 10:00 01/01/18 09:12 Norvasc - PO 10 mg DAILY STEPHON Administration Atorvastatin Calcium 40 mg 12/31/17 23:49 01/01/18 21:29 Lipitor - PO 40 mg HS STEPHON Administration Carbidopa/Levodopa 1 combo 12/31/17 23:45 01/02/18 06:11 Sinemet *Cr* 50/200 - PO 1 combo TID STEPHON Administration Dipyridamole/Aspirin 1 combo 01/01/18 10:00 01/01/18 21:29 Aggrenox - PO 1 combo BID STEPHON Administration Furosemide 40 mg 01/01/18 10:00 01/01/18 09:11 Lasix - PO 40 mg DAILY STEPHON Administration Insulin Aspart 1 vial 01/01/18 16:30 01/02/18 06:11 Novolog Vial Sliding Scale - SQ 6 units ACHS STEPHON Administration Protocol Levothyroxine Sodium 50 mcg 01/01/18 07:00 01/02/18 06:10 Synthroid - PO 50 mcg DAILY@0700 STEPHON Administration Metformin HCl 500 mg 01/01/18 07:00 01/02/18 06:10 Glucophage Xr - PO 500 mg DAILY@0700 STEPHON Administration Methylprednisolone Sodium Succinate 40 mg 01/01/18 18:00 01/02/18 02:32 Solu-Medrol - IVPUSH 40 mg Q8H-IV STEPHON Administration Pantoprazole Sodium 40 mg 01/01/18 10:00 01/01/18 09:11 Protonix - PO 40 mg DAILY STEPHON Administration Potassium Chloride 20 meq 01/01/18 10:00 01/01/18 09:12 K-Dur - PO 20 meq DAILY STEPHON Administration Tamsulosin HCl 0.4 mg 01/01/18 08:30 01/01/18 08:38 Flomax - PO 0.4 mg DAILY@0830 STEPHON Administration Valsartan 320 mg 01/01/18 10:00 01/01/18 09:11 Diovan - PO 320 mg DAILY STEPHON Administration Microbiology 01/01/18 05:00 Blood Culture - Preliminary Blood - Peripheral Venous NO GROWTH OBTAINED AFTER 24 HOURS, INCUBATION TO CONTINUE FOR 4 DAYS. 01/01/18 05:00 Blood Culture - Preliminary Blood - Peripheral Venous NO GROWTH OBTAINED AFTER 24 HOURS, INCUBATION TO CONTINUE FOR 4 DAYS. IMAGING chest xray (portable): no evidence of PNA chest CT: left posterior basilar infiltrate and probable mild cardiomegaly, median sternotomy with CABG, cholelithiasis, mild splenomegaly ASSESSMENT/PLAN: 1) pulm Acute COPD Exacerbation - continue solumedrol same dose, standing duonebs, start symbicort - peak flow today 230 - pulmonary consulted and following community acquired pna - no leukocytosis, pt is afebrile, blood cultures negative to date - start zithromax and rocephin 2) cardiovascular CAD CHF hypertension pvd - continue norvasc and diovan, b/p at goal - bnp wnl, no effusions noted on ct scan of chest, pt appears euvolemic on exam , strict i/o and daily weight - will cont on Aggrenox 3) endo DM - continue FS Ac& HS, with regular insulin sliding scale, elevated fingersticks noted will start levermir 10u hs - continue home dose Glucophage * Hypothyroidism - will cont on Synthroid - TSH level pending 4) neuro Parkinson's disease - continue Sinemet *FEN- Fluid Restrictions 1L K- Stable, s/p replaced , Mg replaced Low Na, Diabetic Diet * DVT: OOB, SCDs and Aggrenox GI ppx- Protonix Code Status: Full Code Visit type - Emergency Visit Emergency Visit: Yes ED Registration Date: 01/02/18 Care time: The patient presented to the Emergency Department on the above date and was hospitalized for further evaluation of their emergent condition. - New Patient This patient is new to me today: Yes Date on this admission: 01/02/18 - Critical Care Critical Care patient: No - Discharge Referral Referred to [facility] Med P.C[facility] No
[2018-01-02] MEDS: TAMSULOSIN HCL 0.4 MG CAP.ER.24H (FP) PO SCH (08:22)
[2018-01-02] MEDS: ALBUTEROL SO4 2.5/IPRATROPIUM 0.5 INH SOL 3 ML VIAL.NEB. NEB SCH ×4 (08:22→20:46)
[2018-01-02 09:12] LABS: ANION GAP 12 MMOL/L (8-16); BLOOD UREA NITROGEN 30 mg/dl (7-18); CALCIUM 8.6 mg/dl (8.4-10.2); CHLORIDE 102 mmol/L (98-107); CO2 23 mmol/L (22-28); GLUCOSE,RANDOM 274 mg/dl (74-106); POTASSIUM 4.3 mmol/L (3.5-5.1); SODIUM 137 mmol/L (136-145)
[2018-01-02] MEDS ORDERED: PT OWN MED DRAWER 7, Y5N ONE ×4 (10:42→20:44)
[2018-01-02] MEDS: FUROSEMIDE 20 MG TABLET (FP) PO SCH (10:45)
[2018-01-02] MEDS: VALSARTAN 160 MG TABLET (UD) PO SCH (10:45)
[2018-01-02] MEDS: POTASSIUM CHLORIDE TABS 20 MEQ TABLET.ER (FP) PO SCH (10:45)
[2018-01-02] MEDS: PANTOPRAZOLE 40 MG TABLET (FP) PO SCH (10:46)
[2018-01-02] MEDS: BUDESONIDE/FORMETEROL FUMARATE 80/4.5 mcg INHALER IH SCH ×2 (10:46→21:03)
[2018-01-02] MEDS: amLODIPine BESYLATE 10 MG TABLET (FP) PO SCH (10:48)
[2018-01-02] MEDS: ASPIRIN/DIPYRIDAMOLE 25 MG/200 MG CAPSULE (FP) PO SCH ×2 (10:48→21:02)
[2018-01-02] MEDS ORDERED: CEFTRIAXONE 1 GM/50 ML BAG IVPB SCH (12:30)
[2018-01-02] MEDS ORDERED: AZITHROMYCIN IVPB 500 MG/250 ML BAG IVPB ONE (12:30)
[2018-01-02] MEDS: LACTOBACILLUS ACIDOPHILUS 1 TABLET PO SCH (12:44)
[2018-01-02] MEDS: MUPIROCIN 2% TOPICAL OINTMENT 22 GM TUBE TP SCH ×2 (12:45→21:03)
[2018-01-02] MEDS ORDERED: AZITHROMYCIN IVPB 500 MG in SODIUM CHLORIDE 250 ML IVPB ONE (13:30)
--- NOTE | 2018-01-02 13:58 | PN ---
Progress Note (short form) - Note Progress Note: PULMONARY OOB TO CHAIR MILD SUBJECTIVE IMPROVEMENT VSS/AFEBRILE ANICTERIC B/L EXP RHONCHI WITH CRACKLES LEFT POSTERIOR BASE S1S2 BS+ OBESE MILD LOWER EXT EDEMA LABS/MEDS/NOTES/IMAGES/MICRO REVIEWED Acute COPD Exacerbation CAD s/p CABG LV Diastolic Dysfunction HTN DM Hypercholesterolemia h/o CVA Parkinsons Disease Hypothyroidism Obstructive Sleep Apnea - IV medrol same dose - IV antibiotics - inhaled bronchodilators standing and PRN - O2 to keep SpO2 >90% - continue cardiac meds - will need outpt PFTs and f/u - DVT prophylaxis Dolores NICHOLAS MD
[2018-01-02 16:11] LABS: PH,URINE 5.5 (4.5-8); URINE APPEARANCE Clear; URINE BILIRUBIN Negative (NEGATIVE); URINE COLOR Yellow; URINE GLUCOSE (UA) 2+ (NEGATIVE); URINE KETONE Negative (NEGATIVE); URINE LEUK ESTERASE Negative (NEGATIVE); URINE NITRITE Negative (NEGATIVE); URINE PROTEIN Negative (NEGATIVE); URINE UROBILINOGEN 0.2 (0.2-1.0)
[2018-01-02] MEDS: INSULIN (LEVEMIR) 100 UNITS/ML UNITS SQ SCH (21:02)
[2018-01-02] MEDS: ATORVASTATIN CA 40 MG TABLET (FP) PO SCH (21:02)
[2018-01-03] MEDS: methylPREDNISolone NA SUCC 40 MG/1 ML VIAL IVPUSH SCH ×3 (01:15→17:28)
[2018-01-03] MEDS: LEVOTHYROXINE NA 50 MCG TABLET (FP) PO SCH (06:29)
[2018-01-03] MEDS: INSULIN SLIDING SCALE (NOVOLOG) 1 VIAL SQ SCH ×4 (06:34→21:07)
[2018-01-03 07:52] LABS: BASO % 0.1 % (0-2.0); HEMOGLOBIN 12.6 GM/dl (11.7-16.9); LYMPH % 7.9 % (8-40); MCH 33.2 pg (25.7-33.7); MCHC 34.9 g/dl (32.0-35.9); MEAN PLT VOLUME 9.9 fl (7.5-11.1); MONO % 3.3 % (3.8-10.2); NEUT % 88.7 % (42.8-82.8); PLATELET COUNT 140 K/MM3 (134-434); RBC 3.79 M/mm3 (4.00-5.60); RDW 12.9 % (11.9-15.9); WHITE BLOOD COUNT 12.1 K/mm3 (4.0-10.8)
--- NOTE | 2018-01-03 07:57 | PN ---
Physical Exam: SUBJECTIVE: Patient seen and examined, reports feeling dyspneic upon exertion, denies any fever OBJECTIVE:patient is a 77 y/o morbidly obese man with a PMHx of: COPD, CAD s/p CABG, CHF, HTN, ? Parkinson's disease ,HLD, DM, CVA, PVD, and Hypothyroidism,. Placed on Telemetry Observation for Acute COPD Exacerbation and PNA Vital Signs Period Temp Pulse Resp BP Sys/Borjas Pulse Ox Last 24 Hr 97.7 F-98.4 F 70-96 18-20 97-144/43-67 94-99 GENERAL: The patient is awake, alert, and fully oriented, in no acute distress. HEAD: Normal with no signs of trauma. EYES: PERRL, extraocular movements intact, sclera anicteric, conjunctiva clear. No ptosis. ENT: Ears normal, nares patent, oropharynx clear without exudates, moist mucous membranes. NECK: Trachea midline, full range of motion, supple. LUNGS: Breath sounds equal, clear to auscultation bilaterally and diminished to bases, no wheezes, no crackles, no accessory muscle use. HEART: Regular rate and rhythm, S1, S2 without murmur, rub or gallop. ABDOMEN: Soft, nontender, nondistended, normoactive bowel sounds, no guarding, no rebound, no hepatosplenomegaly, no masses. EXTREMITIES: 2+ pulses, warm, well-perfused, no edema. NEUROLOGICAL: Cranial nerves II through XII grossly intact. Normal speech, gait not observed. PSYCH: Normal mood, normal affect. SKIN: Warm, dry, normal turgor, no rashes or lesions noted Laboratory Results - last 24 hr 01/02/18 01/02/18 01/02/18 07:00 11:55 12:44 Sodium 137 Potassium 4.3 Chloride 102 Carbon Dioxide 23 Anion Gap 12 BUN 30 H Creatinine 1.0 Creat Clearance w eGFR > 60 POC Glucometer 321 Random Glucose 274 H Calcium 8.6 Magnesium 2.0 Urine Color Urine Appearance Urine pH Ur Specific [place] Urine Protein Urine Glucose (UA) Urine Ketones Urine Blood Urine Nitrite Urine Bilirubin Urine Urobilinogen Ur Leukocyte Esterase 01/02/18 01/02/18 01/02/18 14:50 16:25 20:40 Sodium Potassium Chloride Carbon Dioxide Anion Gap BUN Creatinine Creat Clearance w eGFR POC Glucometer 324 397 Random Glucose Calcium Magnesium Urine Color Yellow Urine Appearance Clear Urine pH 5.5 Ur Specific [place] 1.020 Urine Protein Negative Urine Glucose (UA) 2+ H Urine Ketones Negative Urine Blood Negative Urine Nitrite Negative Urine Bilirubin Negative Urine Urobilinogen 0.2 Ur Leukocyte Esterase Negative 01/03/18 06:27 Sodium Potassium Chloride Carbon Dioxide Anion Gap BUN Creatinine Creat Clearance w eGFR POC Glucometer 274 Random Glucose Calcium Magnesium Urine Color Urine Appearance Urine pH Ur Specific [place] Urine Protein Urine Glucose (UA) Urine Ketones Urine Blood Urine Nitrite Urine Bilirubin Urine Urobilinogen Ur Leukocyte Esterase Active Medications Generic Name Dose Route Start Last Admin Trade Name Freq PRN Reason Stop Dose Admin Acetaminophen 650 mg 01/01/18 03:14 Tylenol - PO Q6H PRN PAIN LEVEL 1-5 OR FEVER Albuterol Sulfate 1 amp 01/01/18 17:09 Ventolin 0.083% Nebulizer Soln - NEB Q4H PRN SHORT OF BREATH/WHEEZING Albuterol/Ipratropium 1 amp 01/01/18 08:00 01/02/18 20:46 Duoneb - NEB 1 amp RQID [facility] Administration Amlodipine Besylate 10 mg 01/01/18 10:00 01/02/18 10:48 Norvasc - PO 10 mg DAILY [facility] Administration Atorvastatin Calcium 40 mg 12/31/17 23:49 01/02/18 21:02 Lipitor - PO 40 mg HS [facility] Administration Budesonide/Formoterol Fumarate 2 puff 01/02/18 10:00 01/02/18 21:03 Symbicort 80/4.5mcg - IH 2 puff BID [facility] Administration Carbidopa/Levodopa 1 combo 12/31/17 23:45 01/03/18 06:29 Sinemet *Cr* 50/200 - PO 1 combo TID [facility] Administration Dipyridamole/Aspirin 1 combo 01/01/18 10:00 01/02/18 21:02 Aggrenox - PO 1 combo BID [facility] Administration Furosemide 40 mg 01/01/18 10:00 01/02/18 10:45 Lasix - PO 40 mg DAILY [facility] Administration Ceftriaxone Sodium 1 gm/ 50 mls @ 100 mls/hr 01/03/18 10:00 Sodium Chloride IVPB DAILY [facility] Protocol Insulin Aspart 1 vial 01/01/18 16:30 01/03/18 06:34 Novolog Vial Sliding Scale - SQ 6 units ACHS [facility] Administration Protocol Insulin Detemir 10 units 01/02/18 22:00 01/02/18 21:02 Levemir Vial SQ 10 units HS [facility] Administration Lactobacillus Acidophilus 1 tab 01/02/18 12:30 01/02/18 12:44 Bacid - PO 1 tab DAILY [facility] Administration Levothyroxine Sodium 50 mcg 01/01/18 07:00 01/03/18 06:29 Synthroid - PO 50 mcg DAILY@0700 [facility] Administration Metformin HCl 500 mg 01/01/18 07:00 01/03/18 06:29 Glucophage Xr - PO 500 mg DAILY@0700 [facility] Administration Methylprednisolone Sodium Succinate 40 mg 01/01/18 18:00 01/03/18 01:15 Solu-Medrol - IVPUSH 40 mg Q8H-IV [facility] Administration Mupirocin 1 applic 01/02/18 12:30 01/02/18 21:03 Bactroban 2% Ointment - TP 1 applic BID [facility] Administration Pantoprazole Sodium 40 mg 01/01/18 10:00 01/02/18 10:46 Protonix - PO 40 mg DAILY [facility] Administration Potassium Chloride 20 meq 01/01/18 10:00 01/02/18 10:45 K-Dur - PO 20 meq DAILY [facility] Administration Tamsulosin HCl 0.4 mg 01/01/18 08:30 01/02/18 08:22 Flomax - PO 0.4 mg DAILY@0830 [facility] Administration Valsartan 320 mg 01/01/18 10:00 01/02/18 10:45 Diovan - PO 320 mg DAILY [facility] Administration Microbiology 01/01/18 05:00 Blood - Peripheral Venous Blood Culture - Preliminary NO GROWTH OBTAINED AFTER 48 HOURS, INCUBATION TO CONTINUE FOR 3 DAYS. 01/01/18 05:00 Blood - Peripheral Venous Blood Culture - Preliminary NO GROWTH OBTAINED AFTER 48 HOURS, INCUBATION TO CONTINUE FOR 3 DAYS. 01/01/18 04:55 Nasopharyngeal Swab Influenza Types A,B Antigen - Final, negative 01/01/18 04:55 Nasopharyngeal Swab - Final,negative IMAGING chest xray (portable): no evidence of PNA chest CT: left posterior basilar infiltrate and probable mild cardiomegaly, median sternotomy with CABG, cholelithiasis, mild splenomegaly ASSESSMENT/PLAN: 1) pulm Acute COPD Exacerbation - continue solumedrol same dose, continue symbicort and start spiriva - pre and post oxygen - pulmonary consulted and following community acquired pna - no leukocytosis, pt is afebrile, blood cultures negative to date - continue zithromax and rocephin 2) cardiovascular CAD CHF hypertension pvd - continue norvasc and diovan, b/p at goal - pt appears euvolemic on exam, strict i/o and daily weight - will cont on Aggrenox 3) endo DM - continue FS Ac& HS, with regular insulin sliding scale, elevated fingersticks noted, increase levermir 12u hs - continue home dose Glucophage * Hypothyroidism - will cont on Synthroid - TSH wnl 4) neuro Parkinson's disease - continue Sinemet *FEN- Fluid Restrictions 1L K- Stable Mg replaced Low Na, Diabetic Diet * DVT: OOB, SCDs and Aggrenox GI ppx- Protonix Code Status: Full Code Visit type - Emergency Visit Emergency Visit: Yes ED Registration Date: 01/02/18 Care time: The patient presented to the Emergency Department on the above date and was hospitalized for further evaluation of their emergent condition. - New Patient This patient is new to me today: No - Critical Care Critical Care patient: No - Discharge Referral Referred to [facility] Med P.C.: No
[2018-01-03] MEDS: ALBUTEROL SO4 2.5/IPRATROPIUM 0.5 INH SOL 3 ML VIAL.NEB. NEB SCH ×2 (08:00→12:00)
[2018-01-03 08:12] LABS: ANION GAP 6 MMOL/L (8-16); BLOOD UREA NITROGEN 36 mg/dl (7-18); CALCIUM 8.4 mg/dl (8.4-10.2); CHLORIDE 104 mmol/L (98-107); CO2 24 mmol/L (22-28); CREATININE 1.1 mg/dl (0.6-1.3); GLUCOSE,RANDOM 282 mg/dl (74-106); MAGNESIUM 1.9 mg/dL (1.8-2.4); PHOSPHOROUS 3.6 mg/dl (2.5-4.6); POTASSIUM 4.2 mmol/L (3.5-5.1); SODIUM 134 mmol/L (136-145)
[2018-01-03] MEDS: TAMSULOSIN HCL 0.4 MG CAP.ER.24H (FP) PO SCH (08:30)
[2018-01-03] MEDS: CEFTRIAXONE 1 GM in SODIUM CHLORIDE 50 ML IVPB SCH (09:30)
[2018-01-03] MEDS: POTASSIUM CHLORIDE TABS 20 MEQ TABLET.ER (FP) PO SCH (10:00)
[2018-01-03] MEDS: FUROSEMIDE 20 MG TABLET (FP) PO SCH (10:00)
[2018-01-03] MEDS: PANTOPRAZOLE 40 MG TABLET (FP) PO SCH (10:00)
[2018-01-03] MEDS: BUDESONIDE/FORMETEROL FUMARATE 80/4.5 mcg INHALER IH SCH ×2 (10:00→21:10)
[2018-01-03] MEDS: amLODIPine BESYLATE 10 MG TABLET (FP) PO SCH (10:05)
--- NOTE | 2018-01-03 10:12 | PN ---
Progress Note, Physician History of Present Illness: PULMONARY ALERT,STILL C/O SOB,CONGESTION - Current Medication List Current Medications: Active Medications Acetaminophen (Tylenol -) 650 mg PO Q6H PRN PRN Reason: PAIN LEVEL 1-5 OR FEVER Albuterol Sulfate (Ventolin 0.083% Nebulizer Soln -) 1 amp NEB Q4H PRN PRN Reason: SHORT OF BREATH/WHEEZING Albuterol/Ipratropium (Duoneb -) 1 amp NEB RQID [facility] Last Admin: 01/02/18 20:46 Dose: 1 amp Amlodipine Besylate (Norvasc -) 10 mg PO DAILY [facility] Last Admin: 01/02/18 10:48 Dose: 10 mg Atorvastatin Calcium (Lipitor -) 40 mg PO HS [facility] Last Admin: 01/02/18 21:02 Dose: 40 mg Budesonide/Formoterol Fumarate (Symbicort 80/4.5mcg -) 2 puff IH BID [facility] Last Admin: 01/02/18 21:03 Dose: 2 puff Carbidopa/Levodopa (Sinemet *Cr* 50/200 -) 1 combo PO TID [facility] Last Admin: 01/03/18 06:29 Dose: 1 combo Dipyridamole/Aspirin (Aggrenox -) 1 combo PO BID [facility] Last Admin: 01/02/18 21:02 Dose: 1 combo Furosemide (Lasix -) 40 mg PO DAILY [facility] Last Admin: 01/02/18 10:45 Dose: 40 mg Ceftriaxone Sodium 1 gm/ (Sodium Chloride) 50 mls @ 100 mls/hr IVPB DAILY [facility]; Protocol Azithromycin 250 mg/ Sodium (Chloride) 250 mls @ 250 mls/hr IVPB DAILY [facility] Stop: 01/07/18 08:52 Insulin Aspart (Novolog Vial Sliding Scale -) 1 vial SQ ACHS [facility]; Protocol Last Admin: 01/03/18 06:34 Dose: 6 units Insulin Detemir (Levemir Vial) 10 units SQ HS [facility] Last Admin: 01/02/18 21:02 Dose: 10 units Lactobacillus Acidophilus (Bacid -) 1 tab PO DAILY [facility] Last Admin: 01/02/18 12:44 Dose: 1 tab Levothyroxine Sodium (Synthroid -) 50 mcg PO DAILY@0700 [facility] Last Admin: 01/03/18 06:29 Dose: 50 mcg Metformin HCl (Glucophage Xr -) 500 mg PO DAILY@0700 [facility] Last Admin: 01/03/18 06:29 Dose: 500 mg Methylprednisolone Sodium Succinate (Solu-Medrol -) 40 mg IVPUSH Q8H-IV [facility] Last Admin: 01/03/18 01:15 Dose: 40 mg Mupirocin (Bactroban 2% Ointment -) 1 applic TP BID [facility] Last Admin: 01/02/18 21:03 Dose: 1 applic Pantoprazole Sodium (Protonix -) 40 mg PO DAILY [facility] Last Admin: 01/02/18 10:46 Dose: 40 mg Potassium Chloride (K-Dur -) 20 meq PO DAILY [facility] Last Admin: 01/02/18 10:45 Dose: 20 meq Tamsulosin HCl (Flomax -) 0.4 mg PO DAILY@0830 [facility] Last Admin: 01/02/18 08:22 Dose: 0.4 mg Valsartan (Diovan -) 320 mg PO DAILY [facility] Last Admin: 01/02/18 10:45 Dose: 320 mg - Objective Vital Signs: Vital Signs Temperature 97.9 F 01/03/18 05:58 Pulse Rate 70 01/03/18 05:58 Respiratory Rate 19 01/03/18 05:58 Blood Pressure 144/67 01/03/18 05:58 O2 Sat by Pulse Oximetry (%) 99 01/03/18 05:58 Constitutional: Yes: Well Nourished, Calm Eyes: Yes: WNL HENT: Yes: WNL Neck: Yes: WNL Cardiovascular: Yes: Regular Rate and Rhythm Respiratory: Yes: Wheezes (BIATERAL WHEEZES) Gastrointestinal: Yes: Normal Bowel Sounds, Soft Extremities: Yes: WNL Edema: No Labs: - ....Imaging Cat Scan: Report Reviewed, Image Reviewed (LEFT BASILAR CHANGES LIKELY CHRONIC) Problem List - Problems (1) ASHD (arteriosclerotic heart disease) Code(s): I25.10 - ATHSCL HEART DISEASE OF [place] CORONARY ARTERY W/O ANG PCTRS (2) COPD exacerbation Code(s): J44.1 - CHRONIC OBSTRUCTIVE PULMONARY DISEASE W (ACUTE) EXACERBATION (3) Diabetes mellitus Code(s): E11.9 - TYPE 2 DIABETES MELLITUS WITHOUT COMPLICATIONS (4) Dyslipidemia Code(s): E78.5 - HYPERLIPIDEMIA, UNSPECIFIED (5) GERD (gastroesophageal reflux disease) Code(s): K21.9 - GASTRO-ESOPHAGEAL REFLUX DISEASE WITHOUT ESOPHAGITIS (6) Hypertension Code(s): I10 - ESSENTIAL (PRIMARY) HYPERTENSION (7) Obesity Code(s): E66.9 - OBESITY, UNSPECIFIED (8) Peripheral vascular disease Code(s): I73.9 - PERIPHERAL VASCULAR DISEASE, UNSPECIFIED Assessment/Plan Acute COPD Exacerbation CAD s/p CABG LV Diastolic Dysfunction HTN DM Hypercholesterolemia h/o CVA Parkinsons Disease Hypothyroidism Obstructive Sleep Apnea - IV medrol same dose - add spiriva - IV antibiotics - inhaled bronchodilators standing and PRN - O2 to keep SpO2 >90% - continue cardiac meds - outpt PFTs and f/u - DVT prophylaxis DR HE
[2018-01-03] MEDS ORDERED: PT OWN MED DRAWER 7, Y5N ONE ×3 (10:15→20:08)
[2018-01-03] MEDS: VALSARTAN 160 MG TABLET (UD) PO SCH (10:39)
[2018-01-03] MEDS: ASPIRIN/DIPYRIDAMOLE 25 MG/200 MG CAPSULE (FP) PO SCH ×2 (10:39→21:07)
[2018-01-03] MEDS: LACTOBACILLUS ACIDOPHILUS 1 TABLET PO SCH (10:39)
[2018-01-03] MEDS: AZITHROMYCIN IVPB 250 MG in SODIUM CHLORIDE 250 ML IVPB SCH (10:42)
[2018-01-03] MEDS: MUPIROCIN 2% TOPICAL OINTMENT 22 GM TUBE TP SCH ×2 (10:43→21:07)
[2018-01-03] MEDS ORDERED: INSULIN (NOVOLOG) ASPART 100 UNITS/ML 10ML VIAL ONE (11:18)
[2018-01-03] MEDS ORDERED: ALBUTEROL SO4 2.5/IPRATROPIUM 0.5 INH SOL 3 ML VIAL.NEB. NEB PRN (12:41)
[2018-01-03] MEDS: TIOTROPIUM BROMIDE 2.5 MCG (SPIRIVA) RESPIMAT INHALER IH SCH (14:10)
[2018-01-03] MEDS: ATORVASTATIN CA 40 MG TABLET (FP) PO SCH (21:06)
[2018-01-03] MEDS: INSULIN (LEVEMIR) 100 UNITS/ML UNITS SQ SCH (21:07)
[2018-01-04] MEDS: methylPREDNISolone NA SUCC 40 MG/1 ML VIAL IVPUSH SCH ×2 (01:45→10:00)
[2018-01-04] MEDS: INSULIN SLIDING SCALE (NOVOLOG) 1 VIAL SQ SCH ×4 (06:18→21:13)
[2018-01-04] MEDS: LEVOTHYROXINE NA 50 MCG TABLET (FP) PO SCH (06:18)
[2018-01-04] MEDS: TAMSULOSIN HCL 0.4 MG CAP.ER.24H (FP) PO SCH (09:00)
--- NOTE | 2018-01-04 09:45 | PN ---
Physical Exam: SUBJECTIVE: Patient seen and examined, ambulatory with walker, reports breathing is much improved, denies any chest pain, reports less dyspnea upon exertion. OBJECTIVE:patient is a 77 y/o morbidly obese man with a PMHx of: COPD, CAD s/p CABG, CHF, HTN, ? Parkinson's disease ,HLD, DM, CVA, PVD, and Hypothyroidism. Placed on Telemetry Observation for Acute COPD Exacerbation and PNA Vital Signs Period Temp Pulse Resp BP Sys/Borjas Pulse Ox Last 24 Hr 97.8 F-98.5 F 67-73 18-20 126-149/52-69 96-98 GENERAL: The patient is awake, alert, and fully oriented, in no acute distress. HEAD: Normal with no signs of trauma. EYES: PERRL, extraocular movements intact, sclera anicteric, conjunctiva clear. No ptosis. ENT: Ears normal, nares patent, oropharynx clear without exudates, moist mucous membranes. NECK: Trachea midline, full range of motion, supple. LUNGS: Breath sounds equal, clear to auscultation bilaterally to apexes, diminished to bases, no wheezes, no crackles, no accessory muscle use. HEART: Regular rate and rhythm, S1, S2 without murmur, rub or gallop. ABDOMEN: Soft, nontender, nondistended, normoactive bowel sounds, no guarding, no rebound, no hepatosplenomegaly, no masses. EXTREMITIES: 2+ pulses, warm, well-perfused, no edema. NEUROLOGICAL: Cranial nerves II through XII grossly intact. Normal speech, steady noted. PSYCH: Normal mood, normal affect. SKIN: Warm, dry, normal turgor, no rashes or lesions noted Laboratory Results - last 24 hr 01/03/18 01/03/18 01/03/18 11:15 16:59 20:29 POC Glucometer 281 257 307 01/04/18 06:14 POC Glucometer 291 Active Medications Generic Name Dose Route Start Last Admin Trade Name Freq PRN Reason Stop Dose Admin Acetaminophen 650 mg 01/01/18 03:14 Tylenol - PO Q6H PRN PAIN LEVEL 1-5 OR FEVER Albuterol Sulfate 1 amp 01/01/18 17:09 Ventolin 0.083% Nebulizer Soln - NEB Q4H PRN SHORT OF BREATH/WHEEZING Amlodipine Besylate 10 mg 01/01/18 10:00 01/03/18 10:05 Norvasc - PO 10 mg DAILY [facility] Administration Atorvastatin Calcium 40 mg 12/31/17 23:49 01/03/18 21:06 Lipitor - PO 40 mg HS STE[facility] Administration Budesonide/Formoterol Fumarate 2 puff 01/02/18 10:00 01/03/18 21:10 Symbicort 80/4.5mcg - IH 2 puff BID STE[facility] Administration Carbidopa/Levodopa 1 combo 12/31/17 23:45 01/04/18 06:18 Sinemet *Cr* 50/200 - PO 1 combo TID STE[facility] Administration Dipyridamole/Aspirin 1 combo 01/01/18 10:00 01/03/18 21:07 Aggrenox - PO 1 combo BID [facility] Administration Furosemide 40 mg 01/01/18 10:00 01/03/18 10:00 Lasix - PO 40 mg DAILY [facility] Administration Ceftriaxone Sodium 1 gm/ 50 mls @ 100 mls/hr 01/03/18 10:00 01/03/18 09:30 Sodium Chloride IVPB 100 mls/hr DAILY [facility] Administration Protocol Azithromycin 250 mg/ Sodium 250 mls @ 250 mls/hr 01/03/18 10:00 01/03/18 10: 42 Chloride IVPB 01/07/18 08:52 250 mls/hr DAILY [facility] Administration Insulin Aspart 1 vial 01/01/18 16:30 01/04/18 06:18 Novolog Vial Sliding Scale - SQ 6 units ACHS [facility] Administration Protocol Insulin Detemir 10 units 01/02/18 22:00 01/03/18 21:07 Levemir Vial SQ 10 units HS [facility] Administration Lactobacillus Acidophilus 1 tab 01/02/18 12:30 01/03/18 10:39 Bacid - PO 1 tab DAILY [facility] Administration Levothyroxine Sodium 50 mcg 01/01/18 07:00 01/04/18 06:18 Synthroid - PO 50 mcg DAILY@0700 [facility] Administration Metformin HCl 500 mg 01/01/18 07:00 01/04/18 06:18 Glucophage Xr - PO 500 mg DAILY@0700 [facility] Administration Methylprednisolone Sodium Succinate 40 mg 01/01/18 18:00 01/04/18 01:45 Solu-Medrol - IVPUSH 40 mg Q8H-IV [facility] Administration Mupirocin 1 applic 01/02/18 12:30 01/03/18 21:07 Bactroban 2% Ointment - TP 1 applic BID [facility] Administration Pantoprazole Sodium 40 mg 01/01/18 10:00 01/03/18 10:00 Protonix - PO 40 mg DAILY [facility] Administration Potassium Chloride 20 meq 01/01/18 10:00 01/03/18 10:00 K-Dur - PO 20 meq DAILY [facility] Administration Tamsulosin HCl 0.4 mg 01/01/18 08:30 01/03/18 08:30 Flomax - PO 0.4 mg DAILY@0830 [facility] Administration Tiotropium [place] 2 puff 01/03/18 13:45 01/03/18 14:10 Spiriva Respimat IH 2 puff DAILY [facility] Administration Valsartan 320 mg 01/01/18 10:00 01/03/18 10:39 Diovan - PO 320 mg DAILY [facility] Administration Microbiology 01/01/18 05:00 Blood Culture - Preliminary Blood - Peripheral Venous NO GROWTH OBTAINED AFTER 72 HOURS, INCUBATION TO CONTINUE FOR 2 DAYS. 01/01/18 05:00 Blood Culture - Preliminary Blood - Peripheral Venous NO GROWTH OBTAINED AFTER 72 HOURS, INCUBATION TO CONTINUE FOR 2 DAYS. IMAGING chest xray (portable): no evidence of PNA chest CT: left posterior basilar infiltrate and probable mild cardiomegaly, median sternotomy with CABG, cholelithiasis, mild splenomegaly ASSESSMENT/PLAN: 1) pulm Acute COPD Exacerbation - continue solumedrol same dose, continue symbicort and spiriva - pulmonary consulted and following community acquired pna - no leukocytosis, pt is afebrile, blood cultures negative to date - continue zithromax and rocephin 2) cardiovascular CAD CHF hypertension pvd - continue norvasc and diovan, b/p at goal - pt appears euvolemic on exam, strict i/o and daily weight - will cont on Aggrenox 3) endo DM - continue FS Ac& HS, with regular insulin sliding scale, elevated fingersticks noted, with levermir 12u hs - continue home dose Glucophage * Hypothyroidism - will cont on Synthroid - TSH wnl 4) neuro Parkinson's disease - continue Sinemet *FEN- Fluid Restrictions 1L K- Stable Mg replaced Low Na, Diabetic Diet * DVT: OOB, SCDs and Aggrenox GI ppx- Protonix Code Status: Full Code Visit type - Emergency Visit Emergency Visit: Yes ED Registration Date: 01/02/18 Care time: The patient presented to the Emergency Department on the above date and was hospitalized for further evaluation of their emergent condition. - New Patient This patient is new to me today: No - Critical Care Critical Care patient: No - Discharge Referral Referred to [facility] Med P.C.: No
[2018-01-04] MEDS: amLODIPine BESYLATE 10 MG TABLET (FP) PO SCH (09:54)
[2018-01-04] MEDS: POTASSIUM CHLORIDE TABS 20 MEQ TABLET.ER (FP) PO SCH (09:56)
[2018-01-04] MEDS: VALSARTAN 160 MG TABLET (UD) PO SCH (09:56)
[2018-01-04] MEDS: FUROSEMIDE 20 MG TABLET (FP) PO SCH (09:57)
[2018-01-04] MEDS: LACTOBACILLUS ACIDOPHILUS 1 TABLET PO SCH (09:57)
[2018-01-04] MEDS: ASPIRIN/DIPYRIDAMOLE 25 MG/200 MG CAPSULE (FP) PO SCH ×2 (09:58→21:12)
[2018-01-04] MEDS: PANTOPRAZOLE 40 MG TABLET (FP) PO SCH (09:59)
[2018-01-04] MEDS: MUPIROCIN 2% TOPICAL OINTMENT 22 GM TUBE TP SCH ×2 (09:59→21:13)
[2018-01-04] MEDS: AZITHROMYCIN IVPB 250 MG in SODIUM CHLORIDE 250 ML IVPB SCH (10:00)
[2018-01-04] MEDS: TIOTROPIUM BROMIDE 2.5 MCG (SPIRIVA) RESPIMAT INHALER IH SCH (10:00)
[2018-01-04] MEDS: CEFTRIAXONE 1 GM in SODIUM CHLORIDE 50 ML IVPB SCH (10:00)
[2018-01-04] MEDS: BUDESONIDE/FORMETEROL FUMARATE 80/4.5 mcg INHALER IH SCH ×2 (10:00→21:12)
[2018-01-04] MEDS ORDERED: PT OWN MED DRAWER 7, Y5N ONE ×2 (10:12→21:10)
[2018-01-04 12:03] LABS: BASO % 0.1 % (0-2.0); HEMATOCRIT 41.1 % (35.4-49); HEMOGLOBIN 13.6 GM/dl (11.7-16.9); LYMPH % 7.3 % (8-40); MCH 31.6 pg (25.7-33.7); MCHC 33.2 g/dl (32.0-35.9); MEAN CELL VOLUME 95.2 fl (80-96); MEAN PLT VOLUME 9.3 fl (7.5-11.1); MONO % 6.3 % (3.8-10.2); NEUT % 86.3 % (42.8-82.8); PLATELET COUNT 174 K/MM3 (134-434); RBC 4.31 M/mm3 (4.00-5.60); RDW 12.6 % (11.9-15.9); WHITE BLOOD COUNT 14.1 K/mm3 (4.0-10.8)
[2018-01-04] MEDS ORDERED: INSULIN (LEVEMIR) 100 UNITS/ML UNITS SQ SCH (12:15)
[2018-01-04 12:23] LABS: ANION GAP 7 MMOL/L (8-16); BLOOD UREA NITROGEN 37 mg/dl (7-18); CALCIUM 8.4 mg/dl (8.4-10.2); CHLORIDE 102 mmol/L (98-107); CO2 25 mmol/L (22-28); CREATININE 1.1 mg/dl (0.6-1.3); GLUCOSE,RANDOM 253 mg/dl (74-106); MAGNESIUM 1.9 mg/dL (1.8-2.4); PHOSPHOROUS 3.1 mg/dl (2.5-4.6); POTASSIUM 4.2 mmol/L (3.5-5.1); SODIUM 134 mmol/L (136-145)
--- NOTE | 2018-01-04 16:29 | PN ---
Progress Note (short form) - Note Progress Note: PULMONARY OOB TO CHAIR MILD SUBJECTIVE IMPROVEMENT VSS/AFEBRILE ANICTERIC B/L EXP RHONCHI WITH CRACKLES LEFT POSTERIOR BASE S1S2 BS+ OBESE MILD LOWER EXT EDEMA LABS/MEDS/NOTES/IMAGES/MICRO REVIEWED Acute COPD Exacerbation CAD s/p CABG LV Diastolic Dysfunction HTN DM Hypercholesterolemia h/o CVA Parkinsons Disease Hypothyroidism Obstructive Sleep Apnea - IV medrol to be changed to oral prednisone - inhaled bronchodilators standing and PRN - O2 to keep SpO2 >90% - continue cardiac meds - will need outpt PFTs and f/u - DVT prophylaxis - Discharge hopefully in AM if he remains stable Dolores NICHOLAS MD
[2018-01-04] MEDS: predniSONE 20 MG TABLET (UD) PO SCH (16:51)
[2018-01-04] MEDS ORDERED: INSULIN (NOVOLOG) ASPART 100 UNITS/ML 10ML VIAL ONE (21:09)
[2018-01-04] MEDS: ATORVASTATIN CA 40 MG TABLET (FP) PO SCH (21:12)
[2018-01-05] MEDS ORDERED: INSULIN (NOVOLOG) ASPART 100 UNITS/ML 10ML VIAL ONE ×2 (06:41→11:59)
[2018-01-05] MEDS: LEVOTHYROXINE NA 50 MCG TABLET (FP) PO SCH (06:42)
[2018-01-05] MEDS: INSULIN SLIDING SCALE (NOVOLOG) 1 VIAL SQ SCH ×2 (06:42→12:14)
[2018-01-05] MEDS: TAMSULOSIN HCL 0.4 MG CAP.ER.24H (FP) PO SCH (08:20)
[2018-01-05 08:22] LABS: BASO % 0.2 % (0-2.0); HEMOGLOBIN 14.3 GM/dl (11.7-16.9); LYMPH % 10.2 % (8-40); MCH 31.6 pg (25.7-33.7); MCHC 33.3 g/dl (32.0-35.9); MEAN CELL VOLUME 94.8 fl (80-96); MEAN PLT VOLUME 9.5 fl (7.5-11.1); MONO % 6.6 % (3.8-10.2); PLATELET COUNT 175 K/MM3 (134-434); RBC 4.54 M/mm3 (4.00-5.60); RDW 12.6 % (11.9-15.9); WHITE BLOOD COUNT 13.3 K/mm3 (4.0-10.8)
[2018-01-05 08:29] LABS: ANION GAP 6 MMOL/L (8-16); BLOOD UREA NITROGEN 36 mg/dl (7-18); CALCIUM 8.7 mg/dl (8.4-10.2); CHLORIDE 103 mmol/L (98-107); CO2 27 mmol/L (22-28); GLUCOSE,RANDOM 207 mg/dl (74-106); MAGNESIUM 2.1 mg/dL (1.8-2.4); PHOSPHOROUS 3.6 mg/dl (2.5-4.6); POTASSIUM 4.1 mmol/L (3.5-5.1); SODIUM 136 mmol/L (136-145)
[2018-01-05] MEDS: BUDESONIDE/FORMETEROL FUMARATE 80/4.5 mcg INHALER IH SCH (09:31)
[2018-01-05] MEDS: AZITHROMYCIN IVPB 250 MG in SODIUM CHLORIDE 250 ML IVPB SCH (09:32)
[2018-01-05] MEDS: TIOTROPIUM BROMIDE 2.5 MCG (SPIRIVA) RESPIMAT INHALER IH SCH (09:32)
[2018-01-05] MEDS: CEFTRIAXONE 1 GM in SODIUM CHLORIDE 50 ML IVPB SCH (09:32)
[2018-01-05] MEDS: ASPIRIN/DIPYRIDAMOLE 25 MG/200 MG CAPSULE (FP) PO SCH (09:33)
[2018-01-05] MEDS: LACTOBACILLUS ACIDOPHILUS 1 TABLET PO SCH (09:34)
[2018-01-05] MEDS: amLODIPine BESYLATE 10 MG TABLET (FP) PO SCH (09:34)
[2018-01-05] MEDS: POTASSIUM CHLORIDE TABS 20 MEQ TABLET.ER (FP) PO SCH (09:34)
[2018-01-05] MEDS: VALSARTAN 160 MG TABLET (UD) PO SCH (09:35)
[2018-01-05] MEDS: FUROSEMIDE 20 MG TABLET (FP) PO SCH (09:35)
[2018-01-05] MEDS: predniSONE 20 MG TABLET (UD) PO SCH (09:35)
[2018-01-05] MEDS: MUPIROCIN 2% TOPICAL OINTMENT 22 GM TUBE TP SCH (09:36)
[2018-01-05] MEDS: PANTOPRAZOLE 40 MG TABLET (FP) PO SCH (09:36)
--- NOTE | 2018-01-05 11:01 | PN ---
Progress Note, Physician History of Present Illness: pulmonary alert,feeling better,-sob,min cough,-cp - Current Medication List Current Medications: Active Medications Acetaminophen (Tylenol -) 650 mg PO Q6H PRN PRN Reason: PAIN LEVEL 1-5 OR FEVER Albuterol Sulfate (Ventolin 0.083% Nebulizer Soln -) 1 amp NEB Q4H PRN PRN Reason: SHORT OF BREATH/WHEEZING Amlodipine Besylate (Norvasc -) 10 mg PO DAILY [facility] Last Admin: 01/05/18 09:34 Dose: 10 mg Atorvastatin Calcium (Lipitor -) 40 mg PO HS [facility] Last Admin: 01/04/18 21:12 Dose: 40 mg Budesonide/Formoterol Fumarate (Symbicort 80/4.5mcg -) 2 puff IH BID [facility] Last Admin: 01/05/18 09:31 Dose: 2 puff Carbidopa/Levodopa (Sinemet *Cr* 50/200 -) 1 combo PO TID [facility] Last Admin: 01/05/18 06:42 Dose: 1 combo Dipyridamole/Aspirin (Aggrenox -) 1 combo PO BID [facility] Last Admin: 01/05/18 09:33 Dose: 1 combo Furosemide (Lasix -) 40 mg PO DAILY [facility] Last Admin: 01/05/18 09:35 Dose: 40 mg Ceftriaxone Sodium 1 gm/ (Sodium Chloride) 50 mls @ 100 mls/hr IVPB DAILY [facility]; Protocol Last Admin: 01/05/18 09:32 Dose: 100 mls/hr Azithromycin 250 mg/ Sodium (Chloride) 250 mls @ 250 mls/hr IVPB DAILY [facility] Stop: 01/07/18 08:52 Last Admin: 01/05/18 09:32 Dose: 250 mls/hr Insulin Aspart (Novolog Vial Sliding Scale -) 1 vial SQ [facility]; Protocol Last Admin: 01/05/18 06:42 Dose: 4 units Insulin Detemir (Levemir Vial) 12 units SQ HS [facility] Last Admin: 01/04/18 21:13 Dose: 12 units Lactobacillus Acidophilus (Bacid -) 1 tab PO DAILY [facility] Last Admin: 01/05/18 09:34 Dose: 1 tab Levothyroxine Sodium (Synthroid -) 50 mcg PO DAILY@0700 [facility] Last Admin: 01/05/18 06:42 Dose: 50 mcg Metformin HCl (Glucophage Xr -) 500 mg PO DAILY@0700 [facility] Last Admin: 01/05/18 06:42 Dose: 500 mg Mupirocin (Bactroban 2% Ointment -) 1 applic TP BID [facility] Last Admin: 01/05/18 09:36 Dose: 1 applic Pantoprazole Sodium (Protonix -) 40 mg PO DAILY [facility] Last Admin: 01/05/18 09:36 Dose: 40 mg Potassium Chloride (K-Dur -) 20 meq PO DAILY [facility] Last Admin: 01/05/18 09:34 Dose: 20 meq Prednisone (Deltasone -) 40 mg PO DAILY [facility] Last Admin: 01/05/18 09:35 Dose: 40 mg Tamsulosin HCl (Flomax -) 0.4 mg PO DAILY@0830 [facility] Last Admin: 01/05/18 08:20 Dose: 0.4 mg Tiotropium Dendron (Spiriva Respimat) 2 puff IH DAILY [facility] Last Admin: 01/05/18 09:32 Dose: 2 puff Valsartan (Diovan -) 320 mg PO DAILY [facility] Last Admin: 01/05/18 09:35 Dose: 320 mg - Objective Vital Signs: Vital Signs Temperature 97.6 F 01/05/18 09:30 Pulse Rate 71 01/05/18 09:30 Respiratory Rate 19 01/05/18 09:30 Blood Pressure 127/48 L 01/05/18 09:30 O2 Sat by Pulse Oximetry (%) 99 01/05/18 09:30 Constitutional: Yes: Well Nourished, Calm Eyes: Yes: WNL HENT: Yes: WNL Neck: Yes: WNL Cardiovascular: Yes: Regular Rate and Rhythm, S1, S2 Respiratory: Yes: Diminished Gastrointestinal: Yes: Normal Bowel Sounds, Soft Extremities: Yes: WNL Edema: No Labs: CBC, BMP 01/05/18 08:02 01/05/18 08:02 INR, PTT INR 1.03 (0.82-1.09) 01/01/18 07:00 Problem List - Problems (1) ASHD (arteriosclerotic heart disease) Code(s): I25.10 - ATHSCL HEART DISEASE OF [place] CORONARY ARTERY W/O ANG PCTRS (2) COPD exacerbation Code(s): J44.1 - CHRONIC OBSTRUCTIVE PULMONARY DISEASE W (ACUTE) EXACERBATION (3) Diabetes mellitus Code(s): E11.9 - TYPE 2 DIABETES MELLITUS WITHOUT COMPLICATIONS (4) Dyslipidemia Code(s): E78.5 - HYPERLIPIDEMIA, UNSPECIFIED (5) GERD (gastroesophageal reflux disease) Code(s): K21.9 - GASTRO-ESOPHAGEAL REFLUX DISEASE WITHOUT ESOPHAGITIS (6) Hypertension Code(s): I10 - ESSENTIAL (PRIMARY) HYPERTENSION (7) Obesity Code(s): E66.9 - OBESITY, UNSPECIFIED (8) Peripheral vascular disease Code(s): I73.9 - PERIPHERAL VASCULAR DISEASE, UNSPECIFIED Assessment/Plan Acute COPD Exacerbation improved CAD s/p CABG LV Diastolic Dysfunction HTN DM Hypercholesterolemia h/o CVA Parkinsons Disease Hypothyroidism Obstructive Sleep Apnea - Prednisone - add spiriva - inhaled bronchodilators - O2 to keep SpO2 >90% - outpt PFTs and f/u - DVT prophylaxis DR HE
--- NOTE | 2018-01-05 11:36 | DS ---
Physical Exam: SUBJECTIVE: Patient seen and examined, Patient is resting comfortably in bedside recliner, reports less dyspnea upon exertion, no cough, denies any chest pain or shortness of breath. OBJECTIVE: This is a 77 y/o man with a PMHx of COPD, CHF, CAD s/p CABG (2006), HTN, HLD, CVA, PVD, DM, Morbid Obesity, Hypothyroidism. Who presents to the ED with increased SOB and wheezing x today. Patient reports having URI symptoms 5 days ago and felt better today and decided to go out. Patient denies fever, chills, CP, palpitations, AP, N/V/D, constipation, dysuria. Patient denies recent sick contacts or travel. Vital Signs Period Temp Pulse Resp BP Sys/Borjas Pulse Ox Last 24 Hr 97.6 F-98.3 F 63-72 18-20 127-153/48-63 96-99 PHYSICAL EXAM GENERAL: obese, patient is awake, alert, and fully oriented, in no acute distress. HEAD: Normal with no signs of trauma. EYES: PERRL, extraocular movements intact, sclera anicteric, conjunctiva clear. No ptosis. ENT: Ears normal, nares patent, oropharynx clear without exudates, moist mucous membranes. NECK: Trachea midline, full range of motion, supple. LUNGS: Breath sounds equal, clear to auscultation bilaterally to apexes, diminished to bases, no wheezes, no crackles, no accessory muscle use. HEART: Regular rate and rhythm, S1, S2 without murmur, rub or gallop. ABDOMEN: Soft, nontender, nondistended, normoactive bowel sounds, no guarding, no rebound, no hepatosplenomegaly, no masses. EXTREMITIES: 2+ pulses, warm, well-perfused, no edema. NEUROLOGICAL: Cranial nerves II through XII grossly intact. Normal speech, steady noted. PSYCH: Normal mood, normal affect. SKIN: Warm, dry, normal turgor, no rashes or lesions noted LABS Laboratory Results - last 24 hr 01/04/18 01/04/18 01/04/18 11:50 11:50 12:18 WBC 14.1 H RBC 4.31 Hgb 13.6 Hct 41.1 MCV 95.2 MCH 31.6 MCHC 33.2 RDW 12.6 Plt Count 174 D MPV 9.3 Absolute Neuts (auto) 12.2 Neutrophils % 86.3 H Lymphocytes % 7.3 L Monocytes % 6.3 D Eosinophils % 0.0 Basophils % 0.1 Sodium 134 L Potassium 4.2 Chloride 102 Carbon Dioxide 25 Anion Gap 7 L BUN 37 H Creatinine 1.1 Creat Clearance w eGFR > 60 POC Glucometer 282 Random Glucose 253 H Calcium 8.4 Phosphorus 3.1 Magnesium 1.9 01/04/18 01/04/18 01/05/18 16:33 21:04 06:30 WBC RBC Hgb Hct MCV MCH MCHC RDW Plt Count MPV Absolute Neuts (auto) Neutrophils % Lymphocytes % Monocytes % Eosinophils % Basophils % Sodium Potassium Chloride Carbon Dioxide Anion Gap BUN Creatinine Creat Clearance w eGFR POC Glucometer 231 328 213 Random Glucose Calcium Phosphorus Magnesium 01/05/18 01/05/18 08:02 08:02 WBC 13.3 H RBC 4.54 Hgb 14.3 Hct 43.0 MCV 94.8 MCH 31.6 MCHC 33.3 RDW 12.6 Plt Count 175 MPV 9.5 Absolute Neuts (auto) 11.0 Neutrophils % 83.0 H Lymphocytes % 10.2 D Monocytes % 6.6 Eosinophils % 0.0 Basophils % 0.2 Sodium 136 Potassium 4.1 Chloride 103 Carbon Dioxide 27 Anion Gap 6 L BUN 36 H Creatinine 1.0 Creat Clearance w eGFR > 60 POC Glucometer Random Glucose 207 H Calcium 8.7 Phosphorus 3.6 Magnesium 2.1 Microbiology 01/01/18 05:00 Blood - Peripheral Venous Blood Culture - Preliminary NO GROWTH OBTAINED AFTER 96 HOURS, INCUBATION TO CONTINUE FOR 1 DAYS. 01/01/18 05:00 Blood - Peripheral Venous Blood Culture - Preliminary NO GROWTH OBTAINED AFTER 96 HOURS, INCUBATION TO CONTINUE FOR 1 DAYS. 01/01/18 04:55 Nasopharyngeal Swab Influenza Types A,B Antigen - Final, negative 01/01/18 04:55 Nasopharyngeal Swab - Final, negative IMAGING chest xray (portable): no evidence of PNA chest CT: left posterior basilar infiltrate and probable mild cardiomegaly, median sternotomy with CABG, cholelithiasis, mild splenomegy HOSPITAL COURSE: 1) Acute COPD Exacerbation - solumedrol taper then transitioned to prednisone, started symbicort and spiriva - pulmonary consulted and followed community acquired pna - no leukocytosis, patient remained afebrile, blood cultures negative to date - lizabeththrashishx and rocephin (01/02-01/05) then transitioned to ceftin 2) cardiovascular CAD CHF hypertension pvd - continued norvasc and diovan, b/p at goal - pt appears euvolemic on exam, strict i/o and daily weight - will cont on Aggrenox 3) endo DM - FS Ac& HS, with regular insulin sliding scale, elevated fingersticks noted, levermir 12u hs - continue home dose Glucophage * Hypothyroidism - will cont on Synthroid - TSH wnl PLAN - discharge home with vNS - Patient educated on the importance of medication adherence, patient verbalizes understanding. -Prednisone, Symbicort, Spiriva and Ceftin as prescribed -Strict follow-up with the psychology assistant and primary care physician within 2 weeks -return precautions reviewed Code Status: Full Code Date of Admission:01/02/18 Date of Discharge: 01/05/18 Minutes to complete discharge: 45 Discharge Summary Reason For Visit: OBSTRUCTIVE CHRONIC BRONCHITIS WITH EXACERBATION, Current Active Problems ASHD (arteriosclerotic heart disease) (Acute) COPD exacerbation (Acute) Condition: Improved - Instructions Diet, Activity, Other Instructions: you were admitted to the hospital for COPD exacerbation and pneumonia While you were in the hospital you were treated with IV antibiotics and IV steroids. please continue prednisone (steroid) as prescribed, take prednisone with food Continue Symbicort and spirva your inhalers for your COPD as prescribed Albuterol inhaler/nebulizer as needed for shortness of breath or wheezing every 4 hours Please follow-up with the psychology assistant within 2 weeks Please follow-up with your primary care physician within 2 weeks If any new or persistent symptoms develop please return to emergency department Referrals: Radu Ramon MD [Staff Physician] - 2 Weeks James Wren MD [Primary Care Provider] - 2 Weeks Disposition: VNS/HOME HEALTH CARE - Home Medications Comprehensive Discharge Medication List: Ambulatory Orders Ascorbate Calcium/Bioflavonoid [Eileen-C 1,000 mg Tablet] 1 each PO DAILY Atorvastatin Ca [Lipitor] 40 mg PO HS 10/12/13 Levothyroxine [Synthroid -] 50 mcg PO DAILY 10/12/13 Potassium Chloride [K-Dur] 20 meq PO DAILY 01/08/14 Furosemide [Lasix -] 40 mg PO DAILY #60 04/22/14 Amlodipine Besylate [Norvasc -] 10 mg PO DAILY #30 tablet 02/19/15 Carbidopa/Levodopa [Carbidopa-Levo ER 50-200 Tab] 1 each PO TID 12/31/17 Meloxicam 7.5 mg PO DAILY 12/31/17 Metformin HCl [Metformin HCl ER] 500 mg PO BID 12/31/17 Olmesartan Medoxomil [Benicar (Nf)] 40 mg PO DAILY 12/31/17 Rabeprazole Sodium [Aciphex] 20 mg PO DAILY 12/31/17 Silodosin [Rapaflo] 4 mg PO DAILY 12/31/17 - Discharge Referral Referred to [facility] No
[2018-01-05 14:19] VITALS: BP 145/63; PULSE 74; TEMP 97.7
== END 2018-01-05 14:22 | disposition home health service (06) | DRG 191 ==
LOC: FER 19:34 → FM/S 21:43 → UNDOADMOB 22:27 → FM/S 22:31 → OBSVTOIN 01-02 10:44
PROVIDERS: ADMIT Internal Medicine; ATTEND Nurse Practitioner Family
DX: J44.1 Chronic obstructive pulmonary disease with (acute) exacerbation (principal); Z68.41 Body mass index [BMI] 40.0-44.9, adult; E11.9 Type 2 diabetes mellitus without complications; I25.10 Atherosclerotic heart disease of native coronary artery without angina pectoris; E78.5 Hyperlipidemia, unspecified; K21.9 Gastro-esophageal reflux disease without esophagitis; E03.9 Hypothyroidism, unspecified; I73.9 Peripheral vascular disease, unspecified; Z95.1 Presence of aortocoronary bypass graft; E66.01 Morbid (severe) obesity due to excess calories; I11.0 Hypertensive heart disease with heart failure; I50.9 Heart failure, unspecified; G20 Parkinson's disease; G47.33 Obstructive sleep apnea (adult) (pediatric)
CPT/HCPCS: 36415; 71045-TC-FY; 71250-TC; 80048; 80053; 81003; 82550; 82962; 83036; 83735; 83880; 84100; 84443; 84484; 85025; 85610; 87040; 87804; 93005; 94640; 94761; 97116-GP; 97161-GP; 99284-25; G0378; J1100; J7620

== ENCOUNTER 2018-06-27 08:00 | Inpatient (IN) | payer OTHER, BC ==
[2018-06-16 11:12] VITALS: BMI 42.5
--- NOTE | 2018-06-27 08:03 | HP ---
[facility] - Chief Complaint Chief Complaint: left hip pain - Past Medical History Allergies/Adverse Reactions: Allergies Allergy/AdvReac Type Severity Reaction Status Date / Time No Known Allergies Allergy Verified 06/16/18 10:43 SLIP BOX CHANGER: Yes: CVA, Parkinson's Cardiovascular: Yes: CAD (CABAG x 5 2006 [place]), CHF, HTN, Hyperlipdemia, Other (Peripheral vascular disea Left leg stent Femoral and carotid bruits) Pulmonary: Yes: COPD, Pneumonia, Sleep Apnea (possible) Gastrointestinal: Yes: GERD, Other (H/O Splenic enlargement esophagitis Malave's) Hepatobiliary: Yes: Other (NAFLD) Heme/Onc: Yes: Thrombocytopenia (Noted after perforated appendix) Musculoskeletal: Yes: Osteoarthritis Rheumatology: Yes: Gout Endocrine: Yes: Hypothyroidism Dermatology: Yes: Psoriasis, Squamous Cell - Current Medications Current Medications: Home Medications Medication Instructions Recorded Ascorbate Calcium/Bioflavonoid 1 each PO DAILY 10/12/13 [Eileen-C 1,000 mg Tablet] Atorvastatin Ca [Lipitor] 40 mg PO HS 10/12/13 Levothyroxine [Synthroid -] 50 mcg PO DAILY 10/12/13 Potassium Chloride [K-Dur] 20 meq PO DAILY 01/08/14 Furosemide [Lasix -] 40 mg PO DAILY #60 04/22/14 Carbidopa/Levodopa [Carbidopa-Levo 1 each PO TID 12/31/17 ER 50-200 Tab] Meloxicam 7.5 mg PO DAILY 12/31/17 Olmesartan Medoxomil [Benicar -] 40 mg PO DAILY 12/31/17 Rabeprazole Sodium [Aciphex] 20 mg PO DAILY 12/31/17 Silodosin [Rapaflo] 4 mg PO DAILY 12/31/17 metFORMIN HCL [Metformin ER 500 mg PO BID 12/31/17 Osmotic] Amlodipine Besylate 5 mg PO DAILY 06/16/18 Aspirin/Dipyridamole [Aggrenox -] 1 combo PO BID 06/16/18 Oxycodone HCl 10 mg PO QID PRN 06/16/18 Pramipexole Dihydrochloride 0.25 mg PO QID 06/16/18 [Mirapex -] Tiotropium [place] [Spiriva 1 puff IH DAILY 06/16/18 Respimat] Tizanidine HCl 2 mg PO TID 06/16/18 Satellite Physical Exam - Physical Examination General Appearance: Well Nourished, Well Developed, Alert & Oriented x3 ENT: Clear Lung: Normal air movement Heart: Regular rate & rhythm Extremities: Other (left hip- + ttp, decr rom, nvi xrays show grade 4 hip djd) Neurological: Intact, Alert, Oriented Satellite Impression/Plan - Impression/Plan Impression: left hip djd Operative Procedure: left veronika thr Date to be Performed: 06/27/18
[2018-07-04] MEDS ORDERED: CEFAZOLIN 2 GM in DEXTROSE 5%-WATER - 50 ML IVPB ONE (08:33)
[2018-07-04] MEDS ORDERED: CELECOXIB 200 MG CAPSULE PO ONE (08:33)
[2018-07-04] MEDS ORDERED: GABAPENTIN 300 MG CAPSULE (FP) PO ONE (08:33)
[2018-07-04] MEDS ORDERED: TRANEXAMIC ACID 1000 MG/10 ML VIAL IVPUSH ONE (08:33)
[2018-07-04] MEDS ORDERED: BUPIVACAINE HCL/PF (5 MG/ML) 30 ML VIAL IJ ONE (10:17)
[2018-07-04] MEDS ORDERED: MIDAZOLAM HCL 2 MG/2 ML SINGLE DOSE VIAL ONE (10:17)
[2018-07-04] MEDS ORDERED: ceFAZolin SODIUM 1 GM VIAL ONE ×2 (10:27→11:38)
[2018-07-04] MEDS ORDERED: VANCOMYCIN 1,000 MG VIAL (RESTRICTED TO ID ONLY) ONE (10:27)
[2018-07-04] MEDS ORDERED: BUPIVACAINE HCL/PF 0.5% (5MG/ML) 10 ML VIAL ONE (10:33)
[2018-07-04] MEDS ORDERED: SUCCINYLCHOLINE CHLORIDE 200 MG/10 ML VIAL ONE (10:34)
[2018-07-04] MEDS ORDERED: PROPOFOL 20 ML ONE (10:34)
[2018-07-04] MEDS ORDERED: PHENYLEPHRINE HCL 10 MG/1 ML SINGLE DOSE VIAL ONE (11:36)
[2018-07-04] MEDS ORDERED: TRANEXAMIC ACID 1000 MG/10 ML VIAL ONE (11:38)
[2018-07-04] MEDS ORDERED: VANCOMYCIN 1,000 MG VIAL (RESTRICTED TO ID ONLY) IVPB ONE (12:39)
[2018-07-04] MEDS ORDERED: BACITRACIN 15 GM TUBE TOPICAL OINTMENT ONE (12:47)
[2018-07-04] MEDS ORDERED: MAG HYDROX/AL HYDROX/SIMETH 30 ML UNIT-DOSE CUP PO PRN (13:10)
[2018-07-04] MEDS ORDERED: MAGNESIUM HYDROX 2400MG/30ML ORAL SUSPENSION 30 ML CUP PO PRN (13:10)
[2018-07-04] MEDS ORDERED: ONDANSETRON 4 MG/2 ML VIAL IVPUSH PRN ×2 (13:10→13:50)
--- NOTE | 2018-07-04 13:14 | OP ---
Operative Note - Note: Operative Date: 07/04/18 ([place]) Pre-Operative Diagnosis: left hip djd Operation: left veronika thr Post-Operative Diagnosis: Same as Pre-op Surgeon: Vipin Proctor Dry Wall Applicator: Boaz Dalton Anesthesiologist/TELETYPEWRITER OPERATOR: Nohemi Louise Anesthesia: Spinal, Local Specimens Removed: femoral head Estimated Blood Loss (mls): 100 Operative Report Dictated: Yes
[2018-07-04] MEDS ORDERED: LACTATED RINGERS SOLUTION 1,000 ML IV SCH (13:15)
[2018-07-04] MEDS ORDERED: oxyCODONE HCL 5 MG TABLET PO PRN (13:50)
[2018-07-04] MEDS ORDERED: PROMETHAZINE HCL 25 MG/1 ML VIAL IVPUSH PRN (13:50)
[2018-07-04] MEDS ORDERED: PATIENT'S OWN MEDICATION (NON-FORMULARY) (Tizanidine Hcl [Tizanidine Hcl] 2 MG) PO SCH (14:00)
[2018-07-04] MEDS: ACETAMINOPHEN 325 MG TABLET (FP) PO SCH ×3 (14:45→20:56)
[2018-07-04] MEDS: oxyCODONE HCL 5 MG TABLET PO PRN ×2 (14:45→20:54)
[2018-07-04] MEDS ORDERED: ACETAMINOPHEN 325 MG TABLET (FP) ONE (14:46)
[2018-07-04] MEDS ORDERED: oxyCODONE HCL 5 MG TABLET ONE ×2 (14:46→14:51)
[2018-07-04] MEDS ORDERED: oxyCODONE HCL 10 MG SUSTAINED ACTING TABLET ONE (15:58)
[2018-07-04] MEDS: oxyCODONE HCL 10 MG SUSTAINED ACTING TABLET PO SCH ×2 (16:05→16:50)
[2018-07-04] MEDS: INSULIN SLIDING SCALE (NOVOLOG) 1 VIAL SQ SCH ×2 (16:50→21:53)
--- NOTE | 2018-07-04 17:32 | SPEC ---
DATE OF OPERATION: 07/04/2018 PREOPERATIVE DIAGNOSIS: Degenerative joint disease left hip. POSTOPERATIVE DIAGNOSIS: Degenerative joint disease left hip. PROCEDURE PERFORMED: Left total hip replacement with robotic-assisted navigation (MAKOplasty). SURGICAL ATTENDING: Vipin Proctor MD MINK FARMER: SKYE Ross ANESTHESIA: Regional and spinal. CLOSURE: A Dionisio hip system with a 54 press-fit titanium II acetabulum, a number 7 Accolade II femoral stem press-fit acetabulum, and a +7.5 36-mm ceramic femoral head. Number 1 Vicryl for fascia, 0 and 2-0 subcutaneous, and 3-0 V-Loc for skin. ESTIMATED BLOOD LOSS: Approximately 100 mL. COMPLICATIONS: None. CONDITION: To the recovery room in stable condition. DESCRIPTION OF PROCEDURE: The patient was taken to the operating room on July 04, 2018. General and regional anesthesia was administered by the anesthesiologist. IV Kefzol and TXA were administered prophylactically prior to the case. The patient was placed in the lateral decubitus position will all prominences well-padded. The left hip area was prepped and draped in the usual sterile fashion. Using 3 small stab incisions over the iliac crest, 3 threaded pins were drilled in power fashion through the 2 tables of the crest. These pins were fastened and the navigation array for the Gerardo navigation system. Next, a 12 to 15-cm curved longitudinal incision over the posterolateral aspect of the greater trochanter was incised. Hemostasis was achieved with Bovie cautery. Sharp dissection was carried down to level of the fascia. The fascia was opened the entire length of the incision, spreading the fibers of the gluteus luiz in the direction of origin. A Charnley retractor was placed in this layer. Care was taken not to impale the sciatic nerve. The short external rotators were detached off the insertion of the greater trochanter and peeled off the capsule. A posterior capsulotomy was then performed. A check point was malleted into the greater trochanter and a point on the inferior pole of the patella was obtained as well. These 2 points were used to assess the preoperative offset and limb lengths of the hip. The hip was then dislocated. The femoral neck was then osteotomized down to the appropriate level as directed by the navigation device. Anterior and posterior retractors were placed, exposing the acetabulum. A circumferential labral excision was performed. A check point was malleted into the acetabulum as well. Multiple sites inside the acetabulum and around the rim were utilized to register the acetabulum with the navigation device. An excellent registration of less than 0.5 mm was obtained. The hip was then reamed with the appropriate reamer down to the appropriate depth, with the appropriate orientation and version as assessed on our preoperative plan for this patient. The reamer was removed and the acetabulum was inspected to have good bleeding surfaces throughout. The real acetabular cup was then malleted down into place, with the holes in the appropriate position, until an excellent fixation was obtained. No screws were necessary. The navigation device ensured appropriate orientation and version, with the depth as predetermined. The appropriate liner was then clipped into place. Attention was directed to the femur. The proximal femur was prepared by use a box chisel, a canal finder and serial broaches until the broach achieved excellent rigidity in the proximal femur with the appropriate version being applied. A calcar planer was used to smooth off the calcar flush with the trial components. A trial reduction with the appropriate head was done, and the hip was reduced. The hip was taken through a range of motion from full extension with external rotation to marked flexion, and was stable at 90 degrees of flexion. It was stable to marked abduction and internal rotation, with a positive hang test and negative telescoping. Limb lengths were ascertained visually as well as with the navigation device to be within the targeted range for this patient. The trial component was removed. The real component was then malleted into place. The head was cold welded to the trunnion, and the hip was reduced. Range of motion, stability and limb lengths were as described in the trial component. Then the hip was pulse antibiotic irrigated. Vancomycin powder was placed in the hip joint. The capsule was closed. The fascia was then closed as well using number 1 Vicryl interrupted suture, 0 and 2-0 subcutaneous, and 3-0 V-Loc for the skin. 4-0 undyed Vicryl was used to close the pin sites after the pins were removed. All check points were also removed. Sterile Aquacel dressing was applied. The patient was awakened from anesthesia and transferred into the supine position. Bilateral SCDs and an abduction pillow were placed. X-rays revealed excellent position of the components. The patient was transferred to the recovery room in stable condition, with no complications. Estimated blood loss was less than 100 mL. Chi MONTERROSO/[id number]
[2018-07-04] MEDS: PRAMIPEXOLE DIHYDROCHLORIDE 0.25 MG TABLET PO SCH ×2 (18:08→21:06)
[2018-07-04] MEDS ORDERED: PT OWN MED DRAWER 7, Y5N ONE (20:47)
[2018-07-04] MEDS: CEFAZOLIN 2 GM/D5W 2 GM/50 ML ML IVPB SCH (20:53)
[2018-07-04] MEDS: ATORVASTATIN CA 40 MG TABLET (FP) PO SCH (21:05)
[2018-07-04] MEDS: SENNOSIDES/DOCUSATE COMBO (SENNA PLUS) TABLET (UD) PO SCH (21:06)
[2018-07-04] MEDS: TIZANIDINE HCL 4 MG TABLET PO SCH (21:08)
[2018-07-04] MEDS ORDERED: PATIENT'S OWN MEDICATION (NON-FORMULARY) (Metformin Hcl [Metformin Er Osmotic] 500 MG) PO SCH (22:00)
[2018-07-05] MEDS: ACETAMINOPHEN 325 MG TABLET (FP) PO SCH ×4 (02:16→21:41)
[2018-07-05] MEDS: CEFAZOLIN 2 GM/D5W 2 GM/50 ML ML IVPB SCH (03:02)
[2018-07-05] MEDS: oxyCODONE HCL 10 MG SUSTAINED ACTING TABLET PO SCH ×2 (03:03→16:00)
[2018-07-05] MEDS ORDERED: PT OWN MED DRAWER 7, Y5N ONE ×5 (05:45→21:12)
[2018-07-05] MEDS: TIZANIDINE HCL 4 MG TABLET PO SCH ×3 (06:20→21:43)
[2018-07-05] MEDS: LEVOTHYROXINE NA 50 MCG TABLET (FP) PO SCH (06:20)
[2018-07-05] MEDS: INSULIN SLIDING SCALE (NOVOLOG) 1 VIAL SQ SCH ×5 (07:42→22:00)
[2018-07-05 07:57] LABS: HEMATOCRIT 33.3 % (35.4-49); HEMOGLOBIN 11.2 GM/dl (11.7-16.9); MCH 31.5 pg (25.7-33.7); MCHC 33.5 g/dl (32.0-35.9); MEAN CELL VOLUME 94.1 fl (80-96); MEAN PLT VOLUME 10.3 fl (7.5-11.1); PLATELET COUNT 129 K/MM3 (134-434); RBC 3.54 M/mm3 (4.00-5.60); RDW 12.5 % (11.9-15.9); WHITE BLOOD COUNT 9.6 K/mm3 (4.0-10.8)
--- NOTE | 2018-07-05 09:18 | PN ---
Progress Note (short form) - Note Progress Note: Ortho Pt seen and examined s/p left veronika thr pod #1- low BP Selected Entries 07/05/18 05:32 Temperature 98.6 F Pulse Rate 92 H Respiratory 19 Rate Blood Pressure 89/37 L Laboratory Tests 07/05/18 06:55 WBC 9.6 Hgb 11.2 L Hct 33.3 L D Plt Count 129 L D dressing c/d/i, calf soft, nt nvi a/p bolus NS hold pain meds hold BP meds f/u BP PT hip precautions dvt ppx pain control d/c home tomorrow if stable
[2018-07-05] MEDS ORDERED: SODIUM CHLORIDE 0.9% 500 ML INFUS.BAG IV ONE (09:30)
[2018-07-05] MEDS: PRAMIPEXOLE DIHYDROCHLORIDE 0.25 MG TABLET PO SCH ×5 (09:37→21:42)
[2018-07-05] MEDS: PANTOPRAZOLE 40 MG TABLET (FP) PO SCH (09:38)
[2018-07-05] MEDS: TAMSULOSIN HCL 0.4 MG CAP PO SCH (09:39)
[2018-07-05] MEDS: TIOTROPIUM BROMIDE 2.5 MCG (SPIRIVA) RESPIMAT INHALER IH SCH (09:41)
[2018-07-05] MEDS: ASPIRIN/DIPYRIDAMOLE 25 MG/200 MG CAPSULE (FP) PO SCH ×2 (09:41→21:42)
[2018-07-05] MEDS: SENNOSIDES/DOCUSATE COMBO (SENNA PLUS) TABLET (UD) PO SCH ×2 (09:41→21:42)
[2018-07-05] MEDS ORDERED: MULTIVITAMINS (DAILY MVI) TABLET (FP) PO SCH (10:00)
[2018-07-05] MEDS ORDERED: PATIENT'S OWN MEDICATION (NON-FORMULARY) (Olmesartan Medoxomil 40 MG) PO SCH (10:00)
[2018-07-05] MEDS ORDERED: PATIENT'S OWN MEDICATION (NON-FORMULARY) (Silodosin [Rapaflo] 4 MG) PO SCH (10:00)
[2018-07-05] MEDS ORDERED: VALSARTAN 160 MG TABLET (UD) PO SCH (10:00)
[2018-07-05] MEDS ORDERED: amLODIPine BESYLATE 5 MG TABLET (FP) PO SCH (10:00)
[2018-07-05] MEDS ORDERED: PATIENT'S OWN MEDICATION (NON-FORMULARY) (Rabeprazole Sodium [Aciphex] 20 MG) PO SCH (10:00)
[2018-07-05] MEDS ORDERED: FUROSEMIDE 20 MG TABLET (FP) PO SCH (10:00)
[2018-07-05] MEDS ORDERED: POTASSIUM CHLORIDE TABS 20 MEQ TABLET.ER (FP) PO SCH (10:00)
[2018-07-05] MEDS ORDERED: SODIUM CHLORIDE 1,000 ML IV ONE (19:57)
[2018-07-05 20:31] LABS: ALBUMIN 2.6 g/dl (3.4-5.0); ALK PHOS 62 U/L (45-117); ANION GAP 6 MMOL/L (8-16); BILIRUBIN,TOTAL 1.4 mg/dl (0.2-1); BLOOD UREA NITROGEN 35 mg/dl (7-18); CALCIUM 7.6 mg/dl (8.5-10); CHLORIDE 103 mmol/L (98-107); CO2 25 mmol/L (21-32); GLUCOSE,RANDOM 203 mg/dl (74-106); MAGNESIUM 1.3 mg/dL (1.8-2.4); POTASSIUM 3.8 mmol/L (3.5-5.1); SGOT/AST 70 U/L (15-37); SGPT/ALT 5 U/L (13-61); SODIUM 134 mmol/L (136-145)
[2018-07-05 20:32] LABS: BASO % 0.2 % (0-2.0); EOS % 0.7 % (0-4.5); HEMATOCRIT 29.9 % (35.4-49); LYMPH % 8.9 % (8-40); MCH 31.6 pg (25.7-33.7); MCHC 33.6 g/dl (32.0-35.9); MEAN CELL VOLUME 94.1 fl (80-96); MEAN PLT VOLUME 9.9 fl (7.5-11.1); MONO % 15.8 % (3.8-10.2); NEUT % 74.4 % (42.8-82.8); PLATELET COUNT 90 K/MM3 (134-434); RBC 3.17 M/mm3 (4.00-5.60); RDW 12.6 % (11.9-15.9); WHITE BLOOD COUNT 9.1 K/mm3 (4.0-10.8)
[2018-07-05] MEDS ORDERED: MAGNESIUM SULF 50% (8.12 MEQ/2 ML-1 GM VIAL) IVPB ONE (20:58)
[2018-07-05] MEDS ORDERED: MAGNESIUM SULF 50% (8.12 MEQ/2 ML-1 GM VIAL) ONE (21:11)
--- NOTE | 2018-07-05 21:18 | CONSULT ---
Consultation: REQUESTING PROVIDER: Dr. Proctor CONSULT REQUEST: We have been asked to medically evaluate this patient for ( Hypotension, Urinary Retention). HISTORY OF PRESENT ILLNESS: This is a 77 y/o man with OA. Here for elective surgery Makoplasty L-THR. POD # 1. Patient was noted to be hypotensive throughout the day, given NS 500ml bolus given this am this evening BP 87/43 . Patient's urine output for the day was documented has voided twice with no quantifiable amount. The RN performed a bladder scan- 697. Patient is currently asymptomatic. He reports ambulating twice with assistance for PT and going to the bathroom to void. Patient reports having decreased PO intake post surgery, just eating a few spoonfuls of his lunch and dinner. He reports drinking several Cranberry juices and some water for the day. The patient denies dizziness, SOB. Patient denies fever, chills, cough, CP, palpitations, AP, N/V/D. Past Medical History: COPD, CAD s/p CABG, Angioplasty, HTN, HLD, CVA (left peripheral vision limited) , Hypothyroidism, Malave's Esophagus, Fatty Liver, OA, ZULEMA (mild) Past Surgical History: CABG x5 Vessel (2007), Appendectomy, Iliac Stent (2007) REVIEW OF SYSTEMS: CONSTITUTIONAL: Absent: fever, chills, diaphoresis, generalized weakness, malaise, loss of appetite, weight change HEENT: Absent: rhinorrhea, nasal congestion, throat pain, throat swelling, difficulty swallowing, mouth swelling, ear pain, eye pain, visual changes CARDIOVASCULAR: Absent: chest pain, syncope, palpitations, irregular heart rate, lightheadedness , peripheral edema RESPIRATORY: Absent: cough, shortness of breath, dyspnea with exertion, orthopnea, wheezing, stridor, hemoptysis GASTROINTESTINAL: Absent: abdominal pain, abdominal distension, nausea, vomiting, diarrhea, constipation, melena, hematochezia GENITOURINARY: Absent: dysuria, frequency, urgency, hesitancy, hematuria, flank pain, genital pain MUSCULOSKELETAL: Hip pain Absent: myalgia, arthralgia, joint swelling, back pain, neck pain SKIN: Absent: rash, itching, pallor HEMATOLOGIC/IMMUNOLOGIC: Absent: easy bleeding, easy bruising, lymphadenopathy, frequent infections ENDOCRINE: Absent: unexplained weight gain, unexplained weight loss, heat intolerance, cold intolerance NEUROLOGIC: Absent: headache, focal weakness or paresthesias, dizziness, unsteady gait, seizure, mental status changes, bladder or bowel incontinence PSYCHIATRIC: Absent: anxiety, depression, suicidal or homicidal ideation, hallucinations. PHYSICAL EXAMINATION Vital Signs - 24 hr 07/04/18 07/05/18 07/05/18 22:07 03:00 05:32 Temperature 98.5 F 99.3 F 98.6 F Pulse Rate 97 H 94 H 92 H Respiratory 19 19 19 Rate Blood Pressure 112/50 L 130/89 89/37 L O2 Sat by Pulse 98 96 98 Oximetry (%) 07/05/18 07/05/18 07/05/18 08:16 09:00 11:00 Temperature 98.6 F 98.6 F Pulse Rate 88 88 Respiratory 19 19 Rate Blood Pressure 76/49 L 77/38 L O2 Sat by Pulse 98 Oximetry (%) 07/05/18 07/05/18 07/05/18 16:03 18:13 19:10 Temperature 98.6 F 98.6 F Pulse Rate 96 H 80 Respiratory 19 19 Rate Blood Pressure 100/48 L 87/48 L 115/46 L O2 Sat by Pulse 98 Oximetry (%) GENERAL: Awake, alert, and fully oriented, in no acute distress. HEAD: Normal with no signs of trauma. EYES: Pupils equal, round and reactive to light, extraocular movements intact, sclera anicteric, conjunctiva clear. No lid lag. EARS, NOSE, THROAT: Ears normal, nares patent, oropharynx clear without exudates. Dry mucous membranes. NECK: Normal range of motion, supple without lymphadenopathy, JVD, or masses. LUNGS: Breath sounds equal, clear to auscultation bilaterally. No wheezes, and no crackles. No accessory muscle use. HEART: Regular rate and rhythm, normal S1 and S2 without murmur, rub or gallop. ABDOMEN: Obese, soft, nontender, not distended, normoactive bowel sounds, no guarding, no rebound, no masses. No hepatomegaly or splenomegaly. MUSCULOSKELETAL: Normal range of motion at RUE, RLE, LUE. LROM of LLE. No bony deformities or tenderness. No CVA tenderness. Dressing C/D/I, Abduction Pillow UPPER EXTREMITIES: 2+ pulses, warm, well-perfused. No cyanosis. No clubbing. Cap refill <2 seconds. No peripheral edema. LOWER EXTREMITIES: 2+ pulses, warm, well-perfused. No calf tenderness. No peripheral edema. NEUROLOGICAL: Cranial nerves II-XII intact. Normal speech. Gait not observed. PSYCHIATRIC: Cooperative. Good eye contact. Appropriate mood and affect. SKIN: Warm, dry, normal turgor, no rashes or lesions noted. Laboratory Results - last 24 hr 07/04/18 07/05/18 07/05/18 21:51 06:18 06:55 WBC 9.6 RBC 3.54 L Hgb 11.2 L Hct 33.3 L D MCV 94.1 MCH 31.5 MCHC 33.5 RDW 12.5 Plt Count 129 L D MPV 10.3 Absolute Neuts (auto) Neutrophils % Lymphocytes % Monocytes % Eosinophils % Basophils % Sodium Potassium Chloride Carbon Dioxide Anion Gap BUN Creatinine Creat Clearance w eGFR POC Glucometer 220 158 Random Glucose Calcium Magnesium Total Bilirubin AST ALT Alkaline Phosphatase Total Protein Albumin 07/05/18 07/05/18 07/05/18 11:17 16:54 20:00 WBC 9.1 RBC 3.17 L Hgb 10.0 L Hct 29.9 L MCV 94.1 MCH 31.6 MCHC 33.6 RDW 12.6 Plt Count 90 L D MPV 9.9 Absolute Neuts (auto) 6.8 Neutrophils % 74.4 Lymphocytes % 8.9 Monocytes % 15.8 H D Eosinophils % 0.7 D Basophils % 0.2 Sodium Potassium Chloride Carbon Dioxide Anion Gap BUN Creatinine Creat Clearance w eGFR POC Glucometer 199 158 Random Glucose Calcium Magnesium Total Bilirubin AST ALT Alkaline Phosphatase Total Protein Albumin 07/05/18 20:00 WBC RBC Hgb Hct MCV MCH MCHC RDW Plt Count MPV Absolute Neuts (auto) Neutrophils % Lymphocytes % Monocytes % Eosinophils % Basophils % Sodium 134 L Potassium 3.8 Chloride 103 Carbon Dioxide 25 Anion Gap 6 L BUN 35 H Creatinine 2.0 H Creat Clearance w eGFR 32.39 POC Glucometer Random Glucose 203 H Calcium 7.6 L Magnesium 1.3 L Total Bilirubin 1.4 H AST 70 H ALT 5 L Alkaline Phosphatase 62 Total Protein 5.0 L Albumin 2.6 L Active Medications Generic Name Dose Route Start Last Admin Trade Name Freq PRN Reason Stop Dose Admin Acetaminophen 650 mg 07/04/18 15:00 07/05/18 15:48 Tylenol - PO 07/07/18 14:59 650 mg Q6H [facility] Administration Al Hydroxide/Mg Hydroxide 30 ml 07/04/18 13:10 Mylanta Oral Suspension - PO Q4H PRN DYSPEPSIA Amlodipine Besylate 5 mg 07/05/18 10:00 07/05/18 09:41 Norvasc - PO Not Given DAILY [facility] Atorvastatin Calcium 40 mg 07/04/18 22:00 07/04/18 21:05 Lipitor - PO 40 mg HS [facility] Administration Carbidopa/Levodopa 1 combo 07/04/18 14:00 07/05/18 15:00 Sinemet *Cr* 50/200 - PO 1 combo TID [facility] Administration Dipyridamole/Aspirin 1 combo 07/05/18 10:00 07/05/18 09:41 Aggrenox - PO 1 combo BID [facility] Administration Insulin Aspart 1 vial 07/04/18 16:30 07/05/18 17:02 Novolog Vial Sliding Scale - SQ Not Given ACHS [facility] Protocol Insulin Aspart 1 vial 07/05/18 22:00 Novolog Vial Sliding Scale - SQ ACHS [facility] Protocol Levothyroxine Sodium 50 mcg 07/05/18 07:00 07/05/18 06:20 Synthroid - PO 50 mcg DAILY@0700 [facility] Administration Magnesium Hydroxide 30 ml 07/04/18 13:10 Milk Of Magnesia - PO PRN PRN CONSTIPATION Ondansetron HCl 4 mg 07/04/18 13:10 Zofran Injection IVPUSH Q6H PRN NAUSEA Oxycodone HCl 5 mg 07/04/18 13:50 Roxicodone - PO Q3H PRN PAIN LEVEL 1-5 Oxycodone HCl 10 mg 07/04/18 13:50 07/04/18 20:54 Roxicodone - PO 10 mg Q3H PRN Administration PAIN LEVEL 6-10 Oxycodone HCl 10 mg 07/04/18 16:00 07/05/18 16:00 Oxycontin - PO Not Given BID@0400,1600 [facility] Pantoprazole Sodium 40 mg 07/05/18 10:00 07/05/18 09:38 Protonix - PO 40 mg DAILY [facility] Administration Pramipexole Dihydrochloride 0.25 mg 07/04/18 14:00 07/05/18 18:57 Mirapex - PO 0.25 mg QID [facility] Administration Senna/Docusate Sodium 2 tablet 07/04/18 22:00 07/05/18 09:41 Pericolace - PO 2 tablet BID [facility] Administration Tamsulosin HCl 0.4 mg 07/05/18 08:30 07/05/18 09:39 Flomax - PO 0.4 mg DAILY@0830 [facility] Administration Tiotropium [place] 1 puff 07/05/18 10:00 07/05/18 09:41 Spiriva Respimat IH 1 puff DAILY [facility] Administration Tizanidine HCl 2 mg 07/04/18 22:00 07/05/18 15:47 Tizanidine Hcl PO 2 mg TID [facility] Administration Valsartan 320 mg 07/05/18 10:00 07/05/18 09:39 Diovan - PO Not Given DAILY [facility] ASSESSMENT/PLAN: This is a 77 y/o man with a significant medical history of CAD s/p CABG x5 vessel, HTN HLD, PVD, Fatty Liver (on CT, 07/16), Hypothyroidism, Malave's Esophagus, Former Smoker. Had elective surgery L- THR Makoplasty POD #1. Patient was hypotensive with urinary retention asymptomatic. Plan: See Problem List Dispo: We will continue to follow the patient. Thank you for this consultative opportunity. Problem List - Problems (1) Hypotension due to hypovolemia Assessment/Plan: Likely due to decreased PO intake vs medication s/p Makoplasty L- THR NS bolus given Monitor BMP Will replete lytes as indicated Continue cardiac monitoring Strict INOs Maintain MAP > 65 Hold BP meds Consider holding pramipexole or decrease frequency secondary to Hypotension Consider transfer to [facility] if condition worsens Code(s): I95.89 - OTHER HYPOTENSION; E86.1 - HYPOVOLEMIA (2) Postoperative urinary retention Assessment/Plan: Bladder Scan 697, patient is asymptomatic Encourage bladder training Stict INOs Consider straight cath vs indwelling will defer to Ortho secondary to SCIP Monitor renal function Monitor vitals Code(s): N99.89 - OTH POSTPROCEDURAL COMPLICATIONS AND DISORDERS OF SYS; R33.8 - OTHER RETENTION OF URINE (3) Hypomagnesemia Assessment/Plan: Likely secondary to Dehydration Mg 1.3 Repleted with Mg Sulfate 2gm Monitor lytes Code(s): E83.42 - HYPOMAGNESEMIA (4) Status post total hip replacement, left Assessment/Plan: Continue ortho regimen PT Incentive Spirometer DVT ppx per Ortho Monitor CBC, BMP Monitor vitals, volume status Code(s): Z96.642 - PRESENCE OF LEFT ARTIFICIAL HIP JOINT (5) COPD (chronic obstructive pulmonary disease) Assessment/Plan: stable, no acute flare Continue home meds Duonebs O2 Code(s): J44.9 - CHRONIC OBSTRUCTIVE PULMONARY DISEASE, UNSPECIFIED (6) CAD (coronary artery disease) Assessment/Plan: stable Continue Aggrenox, Lipitor Code(s): I25.10 - ATHSCL HEART DISEASE OF [place] CORONARY ARTERY W/O ANG PCTRS (7) CVA (cerebral vascular accident) Assessment/Plan: stable Continue Aggrenox Fall Precautions Code(s): I63.9 - CEREBRAL INFARCTION, UNSPECIFIED Qualifiers: CVA mechanism: unspecified Qualified Code(s): I63.9 - Cerebral infarction, unspecified (8) GERD (gastroesophageal reflux disease) Assessment/Plan: Continue PPI Code(s): K21.9 - GASTRO-ESOPHAGEAL REFLUX DISEASE WITHOUT ESOPHAGITIS (9) Hypertension Assessment/Plan: Hold antihypertensive meds secondary to Hypotension Monitor renal function Code(s): I10 - ESSENTIAL (PRIMARY) HYPERTENSION (10) Diabetes mellitus Assessment/Plan: stable BGMs ISS Code(s): E11.9 - TYPE 2 DIABETES MELLITUS WITHOUT COMPLICATIONS (11) Dyslipidemia Assessment/Plan: stable Continue Lipitor Code(s): E78.5 - HYPERLIPIDEMIA, UNSPECIFIED (12) Hypothyroid Assessment/Plan: stable Continue Levothyroxine Code(s): E03.9 - HYPOTHYROIDISM, UNSPECIFIED (13) Hypocalcemia Assessment/Plan: Calcium corrected 8.7 Code(s): E83.51 - HYPOCALCEMIA Visit type - Emergency Visit Emergency Visit: No - New Patient This patient is new to me today: Yes Date on this admission: 07/05/18 - Critical Care Critical Care patient: No
[2018-07-05] MEDS: ATORVASTATIN CA 40 MG TABLET (FP) PO SCH (21:42)
[2018-07-05] MEDS ORDERED: INSULIN (NOVOLOG) ASPART 100 UNITS/ML 10ML VIAL SQ SCH (22:00)
[2018-07-06] MEDS: ACETAMINOPHEN 325 MG TABLET (FP) PO SCH ×4 (03:08→20:36)
[2018-07-06] MEDS: oxyCODONE HCL 10 MG SUSTAINED ACTING TABLET PO SCH ×2 (03:08→15:45)
[2018-07-06] MEDS ORDERED: SODIUM CHLORIDE 1,000 ML IV SCH ×2 (05:15→21:00)
[2018-07-06] MEDS: LEVOTHYROXINE NA 50 MCG TABLET (FP) PO SCH (06:13)
[2018-07-06] MEDS: TIZANIDINE HCL 4 MG TABLET PO SCH ×3 (06:13→22:08)
[2018-07-06] MEDS: INSULIN SLIDING SCALE (NOVOLOG) 1 VIAL SQ SCH ×4 (06:21→22:19)
--- NOTE | 2018-07-06 08:06 | PN ---
Progress Note (short form) - Note Progress Note: Ortho Pt seen and examined s/p left veronika thr pod #1- BP improved Selected Entries 07/06/18 06:00 Temperature 98.3 F Pulse Rate 95 H Respiratory 18 Rate Blood Pressure 109/51 L Laboratory Tests 07/06/18 06:54 WBC Pending Hgb Pending Hct Pending Plt Count Pending dressing c/d/i, calf soft, nt nvi a/p PT hip precautions dvt ppx pain control d/c planning for rehab
[2018-07-06 08:42] LABS: HEMATOCRIT 32.8 % (35.4-49); HEMOGLOBIN 11.1 GM/dl (11.7-16.9); MCH 32.2 pg (25.7-33.7); MEAN CELL VOLUME 94.5 fl (80-96); MEAN PLT VOLUME 10.8 fl (7.5-11.1); PLATELET COUNT 124 K/MM3 (134-434); RBC 3.47 M/mm3 (4.00-5.60); RDW 12.6 % (11.9-15.9); WHITE BLOOD COUNT 11.4 K/mm3 (4.0-10.8)
[2018-07-06 08:54] LABS: ALBUMIN 2.6 g/dl (3.4-5.0); ALK PHOS 71 U/L (45-117); ANION GAP 11 MMOL/L (8-16); BILIRUBIN,TOTAL 1.4 mg/dl (0.2-1); BLOOD UREA NITROGEN 35 mg/dl (7-18); CALCIUM 7.9 mg/dl (8.5-10); CHLORIDE 104 mmol/L (98-107); CO2 22 mmol/L (21-32); CREATININE 1.5 mg/dl (0.55-1.3); GLUCOSE,RANDOM 144 mg/dl (74-106); MAGNESIUM 1.9 mg/dL (1.8-2.4); POTASSIUM 3.9 mmol/L (3.5-5.1); SGOT/AST 103 U/L (15-37); SGPT/ALT 9 U/L (13-61); SODIUM 137 mmol/L (136-145); TOT PROT 5.1 g/dl (6.4-8.2)
[2018-07-06] MEDS ORDERED: PT OWN MED DRAWER 7, Y5N ONE ×3 (09:01→22:09)
[2018-07-06] MEDS: PRAMIPEXOLE DIHYDROCHLORIDE 0.25 MG TABLET PO SCH ×4 (09:05→22:07)
[2018-07-06] MEDS: PANTOPRAZOLE 40 MG TABLET (FP) PO SCH (09:05)
[2018-07-06] MEDS: SENNOSIDES/DOCUSATE COMBO (SENNA PLUS) TABLET (UD) PO SCH ×2 (09:05→22:07)
[2018-07-06] MEDS: TAMSULOSIN HCL 0.4 MG CAP PO SCH (09:06)
[2018-07-06] MEDS: ASPIRIN/DIPYRIDAMOLE 25 MG/200 MG CAPSULE (FP) PO SCH ×2 (09:06→22:09)
[2018-07-06] MEDS: TIOTROPIUM BROMIDE 2.5 MCG (SPIRIVA) RESPIMAT INHALER IH SCH (09:18)
--- NOTE | 2018-07-06 09:26 | PN ---
Physical Exam: SUBJECTIVE: Patient seen and examined oob to chair. Seen walking with PT earlier. OBJECTIVE: Vital Signs Period Temp Pulse Resp BP Sys/Borjas Pulse Ox Last 24 Hr 98.3 F-98.6 F 73-96 18-20 77-115/38-51 95-98 GENERAL: The patient is awake, alert, oriented. HEAD: Normal with no signs of trauma. EYES: PERRL, extraocular movements intact, sclera anicteric, conjunctiva clear. No ptosis. ENT: Ears normal, nares patent, oropharynx clear without exudates, moist mucous membranes. NECK: Trachea midline, full range of motion, supple. LUNGS: Breath sounds equal, clear to auscultation bilaterally, no wheezes, no crackles, no accessory muscle use. HEART: Regular rate and rhythm, S1, S2 without murmur, rub or gallop. ABDOMEN: Soft, nontender, nondistended, normoactive bowel sounds, no guarding, no rebound, no hepatosplenomegaly, no masses. EXTREMITIES: 2+ pulses, warm, well-perfused, no edema. NEUROLOGICAL: Cranial nerves II through XII grossly intact. Normal speech, gait not observed. PSYCH: Normal mood, normal affect. SKIN: Warm, dry, normal turgor, no rashes or lesions noted Laboratory Results - last 24 hr 07/05/18 07/05/18 07/05/18 11:17 16:54 20:00 WBC 9.1 RBC 3.17 L Hgb 10.0 L Hct 29.9 L MCV 94.1 MCH 31.6 MCHC 33.6 RDW 12.6 Plt Count 90 L D MPV 9.9 Absolute Neuts (auto) 6.8 Neutrophils % 74.4 Lymphocytes % 8.9 Monocytes % 15.8 H D Eosinophils % 0.7 D Basophils % 0.2 Sodium Potassium Chloride Carbon Dioxide Anion Gap BUN Creatinine Creat Clearance w eGFR POC Glucometer 199 158 Random Glucose Calcium Magnesium Total Bilirubin AST ALT Alkaline Phosphatase Total Protein Albumin 07/05/18 07/05/18 07/06/18 20:00 21:53 06:19 WBC RBC Hgb Hct MCV MCH MCHC RDW Plt Count MPV Absolute Neuts (auto) Neutrophils % Lymphocytes % Monocytes % Eosinophils % Basophils % Sodium 134 L Potassium 3.8 Chloride 103 Carbon Dioxide 25 Anion Gap 6 L BUN 35 H Creatinine 2.0 H Creat Clearance w eGFR 32.39 POC Glucometer 168 138 Random Glucose 203 H Calcium 7.6 L Magnesium 1.3 L Total Bilirubin 1.4 H AST 70 H ALT 5 L Alkaline Phosphatase 62 Total Protein 5.0 L Albumin 2.6 L 07/06/18 07/06/18 06:54 06:54 WBC 11.4 H RBC 3.47 L Hgb 11.1 L Hct 32.8 L MCV 94.5 MCH 32.2 MCHC 34.0 RDW 12.6 Plt Count 124 L D MPV 10.8 Absolute Neuts (auto) Neutrophils % Lymphocytes % Monocytes % Eosinophils % Basophils % Sodium 137 Potassium 3.9 Chloride 104 Carbon Dioxide 22 Anion Gap 11 BUN 35 H Creatinine 1.5 H Creat Clearance w eGFR 45.14 POC Glucometer Random Glucose 144 H Calcium 7.9 L Magnesium 1.9 Total Bilirubin 1.4 H AST 103 H ALT 9 L Alkaline Phosphatase 71 Total Protein 5.1 L Albumin 2.6 L Active Medications Generic Name Dose Route Start Last Admin Trade Name Freq PRN Reason Stop Dose Admin Acetaminophen 650 mg 07/04/18 15:00 07/06/18 09:06 Tylenol - PO 07/07/18 14:59 650 mg Q6H [facility] Administration Al Hydroxide/Mg Hydroxide 30 ml 07/04/18 13:10 Mylanta Oral Suspension - PO Q4H PRN DYSPEPSIA Amlodipine Besylate 5 mg 07/05/18 10:00 07/05/18 09:41 Norvasc - PO Not Given DAILY [facility] Atorvastatin Calcium 40 mg 07/04/18 22:00 07/05/18 21:42 Lipitor - PO 40 mg HS [facility] Administration Carbidopa/Levodopa 1 combo 07/04/18 14:00 07/06/18 06:13 Sinemet *Cr* 50/200 - PO 1 combo TID [facility] Administration Dipyridamole/Aspirin 1 combo 07/05/18 10:00 07/06/18 09:06 Aggrenox - PO 1 combo BID [facility] Administration Sodium Chloride 1,000 mls @ 60 mls/hr 07/06/18 05:15 07/06/18 06:10 Normal Saline - IV 60 mls/hr ASDIR [facility] Administration Insulin Aspart 1 vial 07/05/18 22:00 07/06/18 06:21 Novolog Vial Sliding Scale - SQ Not Given ACHS [facility] Protocol Levothyroxine Sodium 50 mcg 07/05/18 07:00 07/06/18 06:13 Synthroid - PO 50 mcg DAILY@0700 [facility] Administration Magnesium Hydroxide 30 ml 07/04/18 13:10 Milk Of Magnesia - PO PRN PRN CONSTIPATION Ondansetron HCl 4 mg 07/04/18 13:10 Zofran Injection IVPUSH Q6H PRN NAUSEA Oxycodone HCl 5 mg 07/04/18 13:50 Roxicodone - PO Q3H PRN PAIN LEVEL 1-5 Oxycodone HCl 10 mg 07/04/18 13:50 07/04/18 20:54 Roxicodone - PO 10 mg Q3H PRN Administration PAIN LEVEL 6-10 Oxycodone HCl 10 mg 07/04/18 16:00 07/06/18 03:08 Oxycontin - PO Not Given BID@0400,1600 [facility] Pantoprazole Sodium 40 mg 07/05/18 10:00 07/06/18 09:05 Protonix - PO 40 mg DAILY [facility] Administration Pramipexole Dihydrochloride 0.25 mg 07/04/18 14:00 07/06/18 09:05 Mirapex - PO 0.25 mg QID [facility] Administration Senna/Docusate Sodium 2 tablet 07/04/18 22:00 07/06/18 09:05 Pericolace - PO 2 tablet BID [facility] Administration Tamsulosin HCl 0.4 mg 07/05/18 08:30 07/06/18 09:06 Flomax - PO 0.4 mg DAILY@0830 [facility] Administration Tiotropium [place] 1 puff 07/05/18 10:00 07/06/18 09:18 Spiriva Respimat IH 1 puff DAILY [facility] Administration Tizanidine HCl 2 mg 07/04/18 22:00 07/06/18 06:13 Tizanidine Hcl PO 2 mg TID [facility] Administration Valsartan 320 mg 07/05/18 10:00 07/05/18 09:39 Diovan - PO Not Given DAILY [facility] ASSESSMENT/PLAN 77 year-old male with a PMH significant for HTN, HLD, CAD s/p CABG, CVA, Parkinson's disease, diastolic HF, PVD s/p LLE stent, COPD, GERD, h/o splenic enlargement, NAFLD, Type II NIDDM, thrombocytopenia, hypothyroidism, and degenerative joint disease. Patient is s/p left ROBERT total hip replacement. The hospitalist service has been asked to evaluate and treat this patient post- operatively for his co-morbid conditions. s/p left ROBERT total hip replacement on 07/04/18 --POD #2 --perioperative antibiotics complete --pain management per surgery --continue Aggrenox --protonix --bowel regimen --incentive spirometry --no drains, no guzmán Diastolic heart failure --low volume hypotension post-operatively, improved overnight with fluids but continues borderline low --CXR is clear --small bolus fluids --hold Lasix, valsartan, amlodipine Elevated creatinine --Cr 2.0 on POD #1 (baseline 1.0), improved today to 1.5 with IV fluids --urine studies ordered --continue Flomax Parkinsonism features --continue carbidopa/levodopa, tizanidine COPD --continue Spiriva Coronary artery disease CVA Hyperlipidemia --continue Aggrenox, Lipitor Type II NIDDM --Novolog sliding scale coverage Hypomagnesemia --repleted FEN Fluids: PO intake adequate Electrolytes: replete as indicated Nutrition: regular diet DVT prophylaxis: OOB, ambulation, TEDs, aggrenox Physical therapy Dispo: we will continue to follow this patient. Thank you for this consultative opportunity. Full code. Visit type - Emergency Visit Emergency Visit: Yes ED Registration Date: 07/04/18 Care time: The patient presented to the Emergency Department on the above date and was hospitalized for further evaluation of their emergent condition. - New Patient This patient is new to me today: Yes Date on this admission: 07/07/18 - Critical Care Critical Care patient: No
[2018-07-06] MEDS ORDERED: SODIUM CHLORIDE 250 ML IV STA (10:08)
[2018-07-06] MEDS ORDERED: traMADol HCL 50 MG TABLET PO PRN (13:27)
--- NOTE | 2018-07-06 15:34 | PATH ---
Surgical Pathology Report Patient Name: BENITO BRAND Med. Rec. #: [id number] /Age/Gender: 1940 (Age: 77) / M Account: [id number] Location: [facility] MED-SURG Taken: 07/04/2018 Received: 07/04/2018 Reported: 07/06/2018 Physicians: Vipin Proctor M.D. Specimen(s) Received LEFT FEMORAL HEAD Clinical History Left hip osteoarthritis Final Diagnosis LEFT FEMORAL HEAD, RESECTION: DEGENERATIVE JOINT DISEASE, LEFT HIP. Electronically Signed Víctor Yuen M.D. Gross Description Received in formalin, labeled "left femoral head," is a 4.5 x 4.5 x 4.5 cm. femoral head with a 1.1 cm in length portion of femoral neck attached. The margin of resection is smooth. There is a 4.2 cm greatest dimension area of eburnation present. The remaining articular surface is soares-yellow and diffusely nodular and granular. The underlying trabecular bone is yellow and hard. A telephone service representative section is submitted in one cassette, following decalcification. /07/05/2018 [facility]07/05/2018
[2018-07-06] MEDS ORDERED: NYSTATIN/TRIAMCINOLONE TOPICAL CREAM 15 GM TUBE TP SCH (16:59)
[2018-07-06] MEDS: NYSTATIN/TRIAMCINOLONE TOPICAL OINTMENT 15 GM TUBE TP SCH (22:06)
[2018-07-06] MEDS: ATORVASTATIN CA 40 MG TABLET (FP) PO SCH (22:07)
[2018-07-07] MEDS: ACETAMINOPHEN 325 MG TABLET (FP) PO SCH ×2 (04:01→09:04)
[2018-07-07] MEDS: oxyCODONE HCL 10 MG SUSTAINED ACTING TABLET PO SCH (04:02)
[2018-07-07 05:22] VITALS: BP 110/57; PULSE 89; TEMP 98.7
[2018-07-07] MEDS ORDERED: PT OWN MED DRAWER 7, Y5N ONE ×2 (06:39→10:57)
[2018-07-07] MEDS: INSULIN SLIDING SCALE (NOVOLOG) 1 VIAL SQ SCH (06:40)
[2018-07-07] MEDS: TIZANIDINE HCL 4 MG TABLET PO SCH (06:40)
[2018-07-07] MEDS: LEVOTHYROXINE NA 50 MCG TABLET (FP) PO SCH (07:04)
[2018-07-07] MEDS: TAMSULOSIN HCL 0.4 MG CAP PO SCH (08:30)
[2018-07-07] MEDS: PRAMIPEXOLE DIHYDROCHLORIDE 0.25 MG TABLET PO SCH (10:00)
[2018-07-07 10:02] LABS: ANION GAP 9 MMOL/L (8-16); BLOOD UREA NITROGEN 34 mg/dl (7-18); CHLORIDE 102 mmol/L (98-107); CO2 23 mmol/L (21-32); CREATININE 1.2 mg/dl (0.55-1.3); GLUCOSE,RANDOM 203 mg/dl (74-106); POTASSIUM 3.7 mmol/L (3.5-5.1); SODIUM 134 mmol/L (136-145)
[2018-07-07] MEDS: ASPIRIN/DIPYRIDAMOLE 25 MG/200 MG CAPSULE (FP) PO SCH (10:02)
--- NOTE | 2018-07-07 10:03 | PN ---
Progress Note (short form) - Note Progress Note: Ortho Pt seen and examined s/p left veronika thr pod #3 Selected Entries 07/07/18 03:00 Temperature 98.7 F Pulse Rate 89 Respiratory 18 Rate Blood Pressure 110/57 L Laboratory Tests 07/06/18 06:54 WBC 11.4 H Hgb 11.1 L Hct 32.8 L Plt Count 124 L D dressing c/d/i, calf soft, nt nvi a/p PT hip precautions dvt ppx pain control d/c to rehab today f/u in the office in 7-10 days
[2018-07-07] MEDS: SENNOSIDES/DOCUSATE COMBO (SENNA PLUS) TABLET (UD) PO SCH (10:04)
[2018-07-07] MEDS: PANTOPRAZOLE 40 MG TABLET (FP) PO SCH (10:04)
[2018-07-07] MEDS: TIOTROPIUM BROMIDE 2.5 MCG (SPIRIVA) RESPIMAT INHALER IH SCH (10:04)
--- NOTE | 2018-07-07 10:04 | DS ---
Physical Examination Vital Signs: Vital Signs Temperature 98.7 F 07/07/18 03:00 Pulse Rate 89 07/07/18 03:00 Respiratory Rate 18 07/07/18 03:00 Blood Pressure 110/57 L 07/07/18 03:00 O2 Sat by Pulse Oximetry (%) 98 07/06/18 22:15 Labs: CBC, BMP 07/06/18 06:54 Discharge Summary Reason For Visit: OSTEOARTHRITIS Current Active Problems CAD (coronary artery disease) (Acute) Hypocalcemia (Acute) Hypomagnesemia (Acute) Hypotension due to hypovolemia (Acute) Postoperative urinary retention (Acute) Status post total hip replacement, left (Acute) Procedures: Principal: left veronika thr Hospital Course: admitted for elective left veronika thr, had hypotension earlier in stay but has since improved, hospitalist has followed, stable for d/c Condition: Good - Instructions Diet, Activity, Other Instructions: Post-op Instructions-Total Hip Replacement Call the office for a follow-up appointment in 1 week - [phone] Aspirin 325mg daily for 6 weeks. Pain medication was sent into your pharmacy. Apply Graduated Compression Stockings (TEDs) to both lower extremities- remove daily for hygiene ONLY Apply Sequential Compression Device (SCDs) to both Lower extremities remove for PT and hygiene ONLY Apply cold packs to affected area for 15 minutes every 2 hours. Physical Therapist will come to your home for the first 5 days. You will be set up with outpatient PT at your first post-operative visit. Patient may ambulate as tolerated-encourage self care (at least every 2-3 hours while awake) with walker or cane Maintain Aquacel (waterproof) dressing to operative wound (will be removed by surgeon at first office visit) Shower with Aquacel dressing in place-if Aquacel integrity compromised, remove and apply dry sterile dressing and notify Orthopedist. DO NOT SHOWER unless Orthopedists approves without Aquacel dressing CONTACT THE OFFICE FOR ANY CHANGE IN YOUR CONDITION (for example-fever greater than 102 degrees, excessive bleeding from operative site, purulent drainage, severe swelling or pain) GO TO THE EMERGENCY ROOM IF THERE IS A MEDICAL EMERGENCY Hip Precautions: * Keep a rolled towel under affected heel while in bed or chair (to keep knee in extension) * Dependent upon approach: * Posterior - do not cross legs; do not sit on low chairs or toilets. * If you have any questions, please do not hesitate to call the office - . Referrals: Vipin Proctor MD [Staff Physician] - Disposition: [facility]/HOME HEALTH CARE - Home Medications Comprehensive Discharge Medication List: Ambulatory Orders Ascorbate Calcium/Bioflavonoid [Eileen-C 1,000 mg Tablet] 1 each PO DAILY Atorvastatin Ca [Lipitor] 40 mg PO HS 10/12/13 Levothyroxine [Synthroid -] 50 mcg PO DAILY 10/12/13 Potassium Chloride [K-Dur] 20 meq PO DAILY 01/08/14 Furosemide [Lasix -] 40 mg PO DAILY #60 04/22/14 Carbidopa/Levodopa [Carbidopa-Levo ER 50-200 Tab] 1 each PO TID 12/31/17 Meloxicam 7.5 mg PO DAILY 12/31/17 Olmesartan Medoxomil [Benicar -] 40 mg PO DAILY 12/31/17 Rabeprazole Sodium [Aciphex] 20 mg PO DAILY 12/31/17 Silodosin [Rapaflo] 4 mg PO DAILY 12/31/17 metFORMIN HCL [Metformin ER Osmotic] 500 mg PO BID 12/31/17 Amlodipine Besylate 5 mg PO DAILY 06/16/18 Aspirin/Dipyridamole [Aggrenox -] 1 combo PO BID 06/16/18 Oxycodone HCl 10 mg PO QID PRN 06/16/18 Pramipexole Dihydrochloride [Mirapex -] 0.25 mg PO QID 06/16/18 Tiotropium [place] [Spiriva Respimat] 1 puff IH DAILY 06/16/18 Tizanidine HCl 2 mg PO TID 06/16/18
[2018-07-07] MEDS: NYSTATIN/TRIAMCINOLONE TOPICAL OINTMENT 15 GM TUBE TP SCH (10:40)
--- NOTE | 2018-07-07 11:57 | EKG ---
Test Reason : Blood Pressure : / mmHG Vent. Rate : 077 BPM Atrial Rate : 077 BPM P-R Int : 252 ms QRS Dur : 098 ms QT Int : 364 ms P-R-T Axes : 030 -28 082 degrees QTc Int : 411 ms SINUS RHYTHM WITH 1ST DEGREE A-V BLOCK VOLTAGE CRITERIA FOR LEFT VENTRICULAR HYPERTROPHY ABNORMAL ECG WHEN COMPARED WITH ECG OF 31-DEC-2017 20:38, ST NO LONGER DEPRESSED IN ANTERIOR LEADS ST NO LONGER ELEVATED IN LATERAL LEADS Confirmed by KATI ABERNATHY, ARCHIE ([id number]) on 07/07/2018 11:56:49 AM Referred By: Vipin Proctor Confirmed By:ARCHIE PARIKH MD
[2018-07-07 14:21] LABS: EPITHELIAL CELLS 1+ /hpf
[2018-07-07 14:22] LABS: URINE MUCUS 1+
== END 2018-07-07 11:43 | DRG 470 ==
LOC: UNDOADMIN 09:20 → FM/S 09:20
PROVIDERS: ADMIT Orthopaedic Surgery; ATTEND Orthopaedic Surgery
PROC: 8E0Y0CZ Robotic Assisted Procedure of Lower Extremity, Open Approach (ICD-10-PCS; 2018-07-04)
PROC: 0SRB01A Replacement of Left Hip Joint with Metal Synthetic Substitute, Uncemented, Open Approach (ICD-10-PCS; principal; 2018-07-04 10:30)
DX: M16.12 Unilateral primary osteoarthritis, left hip (principal); I50.32 Chronic diastolic (congestive) heart failure; G20 Parkinson's disease; I11.0 Hypertensive heart disease with heart failure; I95.89 Other hypotension; E86.1 Hypovolemia; E83.42 Hypomagnesemia; E83.51 Hypocalcemia; R33.8 Other retention of urine; Y83.8 Other surgical procedures as the cause of abnormal reaction of the patient, or of later complication, without mention of misadventure at the time of the procedure; J44.9 Chronic obstructive pulmonary disease, unspecified; I25.10 Atherosclerotic heart disease of native coronary artery without angina pectoris; Z95.1 Presence of aortocoronary bypass graft; I73.9 Peripheral vascular disease, unspecified; E03.9 Hypothyroidism, unspecified; I69.398 Other sequelae of cerebral infarction; H53.8 Other visual disturbances; G47.33 Obstructive sleep apnea (adult) (pediatric); E86.0 Dehydration; K21.9 Gastro-esophageal reflux disease without esophagitis
CPT/HCPCS: 36415; 71045-TC-FY; 73502-TC-LT-FY; 80048; 80053; 81003; 81015; 82570; 82962; 83735; 84300; 85025; 85027; 87086; 88304-TC; 88311-TC; 93005; 94760; 97116-GP; 97163-GP; J7030

== ENCOUNTER 2018-08-25 12:34 | Emergency (ER) | payer OTHER, BC ==
--- NOTE | 2018-08-25 12:39 | PDOC ---
History of Present Illness - General Chief Complaint: Urinary Problem Stated Complaint: DIFFICULTY URINATING Time Seen by Provider: 08/25/18 12:37 - History of Present Illness Initial Comments: 77 year old male with history of CVA, Parkinson's, CAD (CABG x 5 2006 in [place]), CHF, HTN, Hyperlipdemia, PVD (s/p left leg stent), COPD, GERD, NAFLD, thrombocytopenia, osteoarthritis, gout, hypothyroidism, psoriasis, squamous cell carcinoma, hip replacement one month prior, and periop urinary retention presenting with urinary difficulty for the past 5 days and chronic wound on his buttox. Patient states that he has been straining over the toilet to urinate but does feel as if he is completely voiding. He does occasionally have some post void burning. Denies fevers, chills, nausea, vomiting, diarrhea, chest pain, or other symptoms. He presents with at home health aid at bedside but lives at home with his daughter. 08/25/18 13:11 Past History - Past Medical History Allergies/Adverse Reactions: Allergies Allergy/AdvReac Type Severity Reaction Status Date / Time unknown iv antibiotic Allergy Uncoded 08/25/18 18:08 Home Medications: Ambulatory Orders Amlodipine Besylate 5 mg PO DAILY 08/25/18 Atorvastatin Ca [Lipitor] 40 mg PO HS 08/25/18 Carbidopa/Levodopa *Cr* 50/200 [Sinemet *Cr* 50/200 -] 1 combo PO TID 08/25/18 Furosemide 40 mg PO DAILY 08/25/18 Levothyroxine [Synthroid -] 50 mcg PO DAILY 08/25/18 Meloxicam 7.5 mg PO DAILY 08/25/18 Metformin HCl [Glucophage] 500 mg PO BID 08/25/18 Olmesartan Medoxomil [Benicar] 40 mg PO DAILY 08/25/18 Potassium Chloride [K-Dur -] 20 meq PO DAILY 08/25/18 Pramipexole Dihydrochloride [Mirapex -] 0.25 mg PO QID 08/25/18 Rabeprazole Sodium 20 mg PO DAILY 08/25/18 Silodosin [Rapaflo] 50 mg PO DAILY 08/25/18 Tizanidine HCl 2 mg PO TID 08/25/18 Anemia: No Asthma: No Cancer: Yes (SKIN) Cardiac Disorders: Yes (CAD, CABGX5) CVA: Yes (LEFT PERIPHERAL VISION LIMITED) COPD: Yes CHF: Yes Dementia: No Diabetes: No GI Disorders: No Disorders: No HTN: Yes Hypercholesterolemia: Yes Liver Disease: No Seizures: No Thyroid Disease: Yes - Surgical History Abdominal Surgery: No Appendectomy: Yes Cardiac Surgery: Yes (BYPASS X5) Cholecystectomy: No Lung Surgery: No Neurologic Surgery: No Orthopedic Surgery: No - Suicide/Smoking/Psychosocial Hx Smoking Status: Yes Smoking History: Former smoker Have you smoked in the past 12 months: Yes Number of Cigarettes Smoked Daily: 10 If you are a former smoker, when did you quit?: 05/20 Cigars Per Day: 1 'Breaking Loose' booklet given: 07/08/15 Hx Alcohol Use: Yes Drug/Substance Use Hx: No Substance Use Type: None Hx Substance Use Treatment: No Review of Systems - Review of Systems Constitutional: No: Chills, Diaphoresis, Fever Respiratory: No: Cough, Orthopnea, Shortness of Breath Cardiac (ROS): No: Chest Pain, Edema, Irregular Heart Rate ABD/GI: No: Diarrhea, Nausea, Vomiting : Yes: Burning, Other (difficulty urinating). No: Dysuria, Frequency Integumentary: Yes: Lesions. No: Erythema, Flushing Neurological: No: Headache, Numbness, Paresthesia Psychiatric: No: Anxiety, Depression Hematologic/Lymphatic: No: Anemia, Blood Clots *Physical Exam - Physical Exam General Appearance: Yes: Nourished, Appropriately Dressed, Obese. No: Apparent Distress HEENT: positive: EOMI, MUSA, Normal ENT Inspection, Normal Voice Neck: positive: Trachea midline, Normal Thyroid, Supple. negative: Tender, Rigid Respiratory/Chest: positive: Lungs Clear, Normal Breath Sounds. negative: Chest Tender, Respiratory Distress, Accessory Muscle Use Cardiovascular: positive: Regular Rhythm, Regular Rate Gastrointestinal/Abdominal: positive: Normal Bowel Sounds, Flat. negative: Tender, Soft (mildly full suprapubic region) Male Genitalia: positive: normal genitalia. negative: discharge, testicular mass Lymphatic: negative: Adenopathy, Tenderness Musculoskeletal: positive: Normal Inspection. negative: Decreased Range of Motion Extremity: positive: Normal Capillary Refill, Normal Inspection, Normal Range of Motion. negative: Tender Integumentary: positive: Normal Color, Dry, Other (small ulcer on the the superior portion of her buttox) Neurologic: positive: Fully Oriented, Alert, Normal Mood/Affect, Normal Response , Motor Strength 08/06 ED Treatment Course - LABORATORY CBC & Chemistry Diagram: 08/25/18 16:45 08/25/18 16:45 Medical Decision Making - Medical Decision Making 77 year old male presenting with urinary difficulty for the past 5 days. Labs roughly WNL with mild hypokalemia. UA negative for infection. Tang inserted with total of 1700 mL out over 6 hours and apparently slowing down. After a search of the literature regasrding post-obstructive diuresis we decided to replete him 1 L of normal saline and replete his potassium with 40 meq kdur. We also spoke to Dr. Wallace who is covering for Dr. Atwood (his urologist) and he was fine with our plan to have him discharged with a leg bag and follow up with Dr. Atwood on Tuesday. 08/25/18 18:45 *DC/Admit/Observation/Transfer Diagnosis at time of Disposition: Urinary retention - Discharge Dispostion Disposition: HOME Condition at time of disposition: Improved Decision to Admit order: No - Referrals Referrals: Jose Maria Atwood MD., MD [Staff Physician] - - Patient Instructions Printed Discharge Instructions: How to Care for Your Tang Catheter -- Male Additional Instructions: Please drain your leg bag when it starts to get full. Please return to the ED if you have greater than 2 Liters produced in one day. Also return if you have fevers, nausea, vomiting, or other symptoms. Please make sure you - Post Discharge Activity
[2018-08-25 12:45] VITALS: TEMP 97.7; BMI 38.4
--- NOTE | 2018-08-25 15:40 | PDOC ---
Attending Attestation - Resident Resident Name: Benoit Carmona - ED Attending Attestation I have performed the following: I have examined & evaluated the patient, The case was reviewed & discussed with the resident, I agree w/resident's findings & plan, Exceptions are as noted - HPI HPI: 08/25/18 15:38 77 M with h/o CVA, Parkinson's, CAD (CABG x 5 2006 in [place]), CHF, HTN, Hyperlipdemia, PVD (s/p left leg stent), COPD, GERD, NAFLD, thrombocytopenia, osteoarthritis, gout, hypothyroidism, psoriasis, squamous cell carcinoma, hip replacement one month prior, and periop urinary retention, presenting to ED with difficulty urinating x 1 week. Pt reports urine dribbling out and feeling of incomplete voiding. Endorses suprapubic pressure. Denies F/C. Denies flank pain. - Physicial Exam PE: 08/25/18 15:38 "GENERAL: Awake, alert, and fully oriented, in no acute distress. HEAD: No signs of trauma EYES: PERRLA, EOMI, sclera anicteric, conjunctiva clear ENT: Auricles normal inspection, hearing grossly normal, nares patent, oropharynx clear without exudates. Moist mucosa NECK: Nontender, no stepoffs, Normal ROM, supple, no lymphadenopathy, JVD, or masses LUNGS: Breath sounds equal, clear to auscultation bilaterally. No wheezes, and no crackles HEART: Regular rate and rhythm, normal S1 and S2, no murmurs, rubs or gallops ABDOMEN: Soft, nontender, normoactive bowel sounds. No guarding, no rebound. No masses EXTREMITIES: Normal range of motion, no edema. No clubbing or cyanosis. No cords, erythema, or tenderness NEUROLOGICAL: Cranial nerves II through XII intact. 5/5 strength and sensation in all extremities, Normal speech, normal gait, normal cerebellar function SKIN: Warm, Dry, normal turgor, no rashes or lesions noted. - Medical Decision Making 08/25/18 15:39 77 M with urinary retention. Bedside US shows >700cc PVR. - Guzmán catheter - UA - Monitor in ED for post-obstructive diuresis 08/25/18 17:40 Pt with approx 1L UOP total Labs unremarkable Cr and other electrolytes wnl 05/27/19 09:53 Called pt today due to positive culture growing E faecalis. Informed pt that I sent bactrim to the pharmacy for him. He states he is having a lot of pain at the tip of his penis due to the guzmán catheter. I told pt to return to the ED if the pain is unbearable.
[2018-08-25 17:05] LABS: BASO % 0.4 % (0-2.0); EOS % 3.5 % (0-4.5); HEMATOCRIT 39.3 % (35.4-49); LYMPH % 24.8 % (8-40); MCH 30.7 pg (25.7-33.7); MEAN PLT VOLUME 9.5 fl (7.5-11.1); MONO % 10.6 % (3.8-10.2); NEUT % 60.7 % (42.8-82.8); PLATELET COUNT 138 K/MM3 (134-434); RBC 4.23 M/mm3 (4.00-5.60); RDW 14.2 % (11.9-15.9); WHITE BLOOD COUNT 5.5 K/mm3 (4.0-10.8)
[2018-08-25 17:19] LABS: ALBUMIN 3.8 g/dl (3.4-5.0); BILIRUBIN,TOTAL 0.8 mg/dl (0.2-1); CALCIUM 9.1 mg/dl (8.5-10); POTASSIUM 3.4 mmol/L (3.5-5.1)
[2018-08-25] MEDS ORDERED: SODIUM CHLORIDE 1,000 ML IV STA (18:01)
[2018-08-25] MEDS ORDERED: POTASSIUM CHLORIDE TABS 20 MEQ TABLET.ER (FP) PO ONE ×2 (18:41)
[2018-08-25 20:04] VITALS: BP 121/77; PULSE 79
== END 2018-08-25 19:56 | disposition home or self-care (01) ==
LOC: FER 12:34
PROC: 3E0337Z Introduction of Electrolytic and Water Balance Substance into Peripheral Vein, Percutaneous Approach (ICD-10-PCS; principal; 2018-08-25)
DX: R33.9 Retention of urine, unspecified (principal); J44.9 Chronic obstructive pulmonary disease, unspecified; I50.9 Heart failure, unspecified; Z87.891 Personal history of nicotine dependence; I10 Essential (primary) hypertension; E78.00 Pure hypercholesterolemia, unspecified; E07.9 Disorder of thyroid, unspecified; Z85.828 Personal history of other malignant neoplasm of skin; Z86.73 Personal history of transient ischemic attack (TIA), and cerebral infarction without residual deficits
CPT/HCPCS: 36415; 80053; 81003; 81015; 85025; 87086; 87186; 99284-25; J7030

== ENCOUNTER 2019-05-14 15:29 | Emergency (ER) | payer OTHER, BC ==
[2019-05-14 15:40] VITALS: BP 139/81; PULSE 75; TEMP 98.3; BMI 40.6
--- NOTE | 2019-05-14 15:56 | PDOC ---
History of Present Illness - General History Source: Patient <Milan Rivera - Last Filed: 05/14/19 18:12> <Brent Greene - Last Filed: 06/04/19 11:57> - General Chief Complaint: Pain Stated Complaint: LEFT LEG BLISTER Time Seen by Provider: 05/14/19 15:54 Past History - Past Medical History Anemia: No Asthma: No Cancer: Yes (SKIN) Cardiac Disorders: Yes (CAD, CABGX5) CVA: Yes (LEFT PERIPHERAL VISION LIMITED) COPD: Yes CHF: Yes Dementia: No Diabetes: No GI Disorders: No Disorders: No HTN: Yes Hypercholesterolemia: Yes Liver Disease: No Seizures: No Thyroid Disease: Yes - Surgical History Abdominal Surgery: No Appendectomy: Yes Cardiac Surgery: Yes (BYPASS X5) Cholecystectomy: No Lung Surgery: No Neurologic Surgery: No Orthopedic Surgery: No - Psycho Social/Smoking Cessation Hx Smoking Status: Yes Smoking History: Former smoker Have you smoked in the past 12 months: No Number of Cigarettes Smoked Daily: 10 If you are a former smoker, when did you quit?: 05/20 Cigars Per Day: 1 Information on smoking cessation initiated: No 'Breaking Loose' booklet given: 07/08/15 Hx Alcohol Use: Yes (occasionally) Drug/Substance Use Hx: No Substance Use Type: None Hx Substance Use Treatment: No <Milan Rivera - Last Filed: 05/14/19 18:12> <Brent Greene - Last Filed: 06/04/19 11:57> - Past Medical History Allergies/Adverse Reactions: Allergies Allergy/AdvReac Type Severity Reaction Status Date / Time No Known Drug Allergies Allergy Verified 05/14/19 18:17 unknown iv antibiotic Allergy Uncoded 05/14/19 15:36 Home Medications: Ambulatory Orders Atorvastatin Ca [Lipitor] 40 mg PO HS 08/25/18 Carbidopa/Levodopa *Cr* 50/200 [Sinemet *Cr* 50/200 -] 1 combo PO TID 08/25/18 Furosemide 40 mg PO DAILY 08/25/18 Levothyroxine [Synthroid -] 50 mcg PO DAILY 08/25/18 Metformin HCl [Glucophage] 500 mg PO BID 08/25/18 Olmesartan Medoxomil [Benicar] 40 mg PO DAILY 08/25/18 Potassium Chloride [K-Dur -] 20 meq PO DAILY 08/25/18 Pramipexole Dihydrochloride [Mirapex -] 0.25 mg PO QID 08/25/18 Rabeprazole Sodium 20 mg PO DAILY 08/25/18 Silodosin [Rapaflo] 50 mg PO DAILY 08/25/18 Apixaban [Eliquis] 5 mg PO BID 05/14/19 Cephalexin [Keflex] 500 mg PO QID 7 Days #28 capsule 05/14/19 Donepezil HCl [Aricept -] 5 mg PO DAILY 05/14/19 Icosapent Ethyl [Vascepa] 2 gm PO BID 05/14/19 Metoprolol Succinate [Toprol Xl] 50 mg PO HS 05/14/19 Metoprolol Succinate [Toprol Xl] 75 mg PO AM 05/14/19 Oxycodone HCl 10 mg PO QID PRN 05/14/19 Spironolactone 25 mg PO DAILY 05/14/19 Tiotropium [place] [Spiriva] 18 mcg IH DAILY 05/14/19 *Physical Exam - Vital Signs Last Vital Signs Temp Pulse Resp BP Pulse Ox 98.3 F 75 19 139/81 99 05/14/19 15:29 05/14/19 15:29 05/14/19 15:29 05/14/19 15:29 05/14/19 15:29 <Milan Rivera - Last Filed: 05/14/19 18:12> - Vital Signs Last Vital Signs Temp Pulse Resp BP Pulse Ox 98.3 F 75 19 139/81 99 05/14/19 15:29 05/14/19 15:29 05/14/19 15:29 05/14/19 15:29 05/14/19 15:29 <Brent Greene - Last Filed: 06/04/19 11:57> ED Treatment Course - LABORATORY CBC & Chemistry Diagram: 05/14/19 17:30 05/14/19 17:30 <Milan Rivera - Last Filed: 05/14/19 18:12> - LABORATORY CBC & Chemistry Diagram: 05/14/19 17:30 05/14/19 17:30 - ADDITIONAL ORDERS Additional order review: 05/14/19 17:30 Gram Stain - Final Leg - Left Lower Wound Culture - Final NO GROWTH AFTER 48 HOURS INCUBATION 05/14/19 05/14/19 17:30 17:04 RBC 4.46 MCV 94.6 MCHC 33.3 RDW 13.3 MPV 9.4 Neutrophils % 58.6 Lymphocytes % 27.7 Monocytes % 11.3 H Eosinophils % 1.7 Basophils % 0.7 POC Glucometer 167 - Medications Given in the ED: ED Medications Discontinued Medications Generic Name Dose Route Start Last Admin Trade Name Mattie PRN Reason Stop Dose Admin Ceftriaxone Sodium 1 gm/ 50 mls @ 100 mls/hr 05/14/19 18:30 05/14/19 18:20 Dextrose IVPB 05/14/19 18:59 100 mls/hr ONCE ONE Administration <Brent Greene - Last Filed: 06/04/19 11:57> Discharge - Discharge Information Problems reviewed: Yes - Admission No <Milan Rivera - Last Filed: 05/14/19 18:12> <Brent Greene - Last Filed: 06/04/19 11:57> - Discharge Information Clinical Impression/Diagnosis: Cellulitis Qualifiers: Site of cellulitis: extremity Site of cellulitis of extremity: lower extremity Laterality: left Qualified Code(s): L03.116 - Cellulitis of left lower limb Condition: Fair Disposition: HOME - Additional Discharge Information Prescriptions: Cephalexin [Keflex] 500 mg PO QID 7 Days #28 capsule - Patient Discharge Instructions Patient Printed Discharge Instructions: DI for Cellulitis -- Adult Additional Instructions: You were seen in the ER for an infection and blister on your leg. Your blood work was normal. We gave you a dose of an antibiotic in the ER, and are prescribing you another antibiotic to take at home. Please take the antibiotic as directed. Be sure to follow up with your primary care provider as soon as possible, in the next 7 days. Return to the ER if you develop high fevers, weakness, chest pain, or shortness of breath.
[2019-05-14 17:58] LABS: BASO % 0.7 % (0-2.0); EOS % 1.7 % (0-4.5); HEMATOCRIT 42.2 % (35.4-49); LYMPH % 27.7 % (8-40); MCH 31.5 pg (25.7-33.7); MCHC 33.3 g/dl (32.0-35.9); MEAN CELL VOLUME 94.6 fl (80-96); MEAN PLT VOLUME 9.4 fl (7.5-11.1); MONO % 11.3 % (3.8-10.2); NEUT % 58.6 % (42.8-82.8); PLATELET COUNT 113 K/MM3 (134-434); RBC 4.46 M/mm3 (4.00-5.60); RDW 13.3 % (11.9-15.9); WHITE BLOOD COUNT 6.3 K/mm3 (4.0-10.8)
[2019-05-14 18:03] LABS: ALBUMIN 3.8 g/dl (3.4-5.0); BILIRUBIN,TOTAL 1.6 mg/dl (0.2-1); CALCIUM 8.7 mg/dl (8.5-10); CREATININE 1.4 mg/dl (0.55-1.3); TOT PROT 6.7 g/dl (6.4-8.2)
[2019-05-14] MEDS ORDERED: cefTRIAXone SODIUM 1 GM VIAL ONE (18:08)
[2019-05-14] MEDS ORDERED: CEFTRIAXONE 1 GM in DEXTROSE 5%-WATER - 50 ML IVPB ONE (18:30)
--- NOTE | 2019-05-14 18:56 | PDOC ---
Attending Attestation - Resident Resident Name: MiguelMilan - ED Attending Attestation I have performed the following: I have examined & evaluated the patient, The case was reviewed & discussed with the resident, I agree w/resident's findings & plan, Exceptions are as noted - HPI HPI: 05/16/19 07:26 Swelling erythema and blistering of the left calf for several days. No drainage. No trauma. History of venous stasis disease and CHF - Physicial Exam PE: 05/16/19 07:26 Edema, induration, erythema warmth and a large 8 cm bullae left lateral calf, intact, nonpurulent fluid. Minimal tenderness. Pulses intact. No distal sensory deficits. No motor deficits. Gait stable and unimpaired Lungs clear CV regular without murmur rub or gallop - Medical Decision Making 05/16/19 07:27 Assessment: Cellulitis superimposed on chronic venous stasis Plan: After cleansing with saline the bullous lesion was aspirated and the fluid sent for culture. Patient was begun on antibiotics. Close follow-up primary physician or return to ER in 2 days for wound check. Fully ambulatory and in no distress at discharge with family to follow-up as directed
== END 2019-05-14 19:05 | disposition home or self-care (01) ==
LOC: FER 15:29
DX: L03.116 Cellulitis of left lower limb (principal); X58.XXXA Exposure to other specified factors, initial encounter; Y93.89 Activity, other specified; Y92.89 Other specified places as the place of occurrence of the external cause
CPT/HCPCS: 36415; 80053; 82962; 85025; 87070; 87205; 99283-25

== ENCOUNTER 2019-10-23 05:56 | Inpatient (IN) | payer OTHER, BC ==
[2019-10-10 11:42] VITALS: BMI 42.0
[2019-10-23] MEDS ORDERED: CEFAZOLIN 3 GM in DEXTROSE 5%-WATER - 100 ML IVPB ONE (06:42)
[2019-10-23] MEDS ORDERED: MIDAZOLAM HCL 2 MG/2 ML SINGLE DOSE VIAL ONE (06:50)
[2019-10-23] MEDS ORDERED: ROPIVACAINE HCL 0.5% 30ML VIAL ONE (06:50)
[2019-10-23] MEDS ORDERED: ceFAZolin SODIUM 1 GM VIAL ONE ×4 (07:07→16:15)
[2019-10-23] MEDS ORDERED: VANCOMYCIN 1,000 MG VIAL (RESTRICTED TO ID ONLY) ONE (07:07)
[2019-10-23] MEDS ORDERED: PROPOFOL 20 ML ONE ×3 (07:19)
[2019-10-23] MEDS ORDERED: SUCCINYLCHOLINE CHLORIDE 200 MG/10 ML SYRINGE ONE (07:19)
[2019-10-23] MEDS ORDERED: ROCURONIUM BROMIDE 50 MG/5 ML VIAL ONE (07:19)
[2019-10-23] MEDS ORDERED: ePHEDrine SULFATE 50 MG/1 ML AMPULE ONE (07:19)
[2019-10-23] MEDS ORDERED: LIDOCAINE HCL/PF 2% SDV 5ML VIAL ONE (07:20)
[2019-10-23] MEDS ORDERED: ONDANSETRON 4 MG/2 ML VIAL ONE (07:20)
[2019-10-23] MEDS ORDERED: DEXAMETHASONE SOD PHOSPHATE 4 MG/1 ML VIAL ONE (07:20)
[2019-10-23] MEDS ORDERED: ALBUTEROL SO4 0.083% IH SOL 2.5 MG/3 ML VIAL.NEB. NEB ONE (07:31)
[2019-10-23] MEDS ORDERED: IPRATROPIUM BR 0.02% 0.5 MG/2.5 ML VIAL.NEB. NEB ONE (07:32)
[2019-10-23] MEDS ORDERED: ALBUTEROL SO4 HFA INHALER IH PRN (07:53)
--- NOTE | 2019-10-23 07:54 | HP ---
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: Yes: CVA, Parkinson's Cardiovascular: Yes: CAD (CABAG x 5 2006 [place]), CHF, HTN, Hyperlipdemia, Other (Peripheral vascular disea Left leg stent Femoral and carotid bruits) Pulmonary: Yes: COPD, Pneumonia, Sleep Apnea (possible) Gastrointestinal: Yes: GERD, Other (H/O Splenic enlargement esophagitis Malave's) Hepatobiliary: Yes: Other (NAFLD) Heme/Onc: Yes: Thrombocytopenia (Noted after perforated appendix) Musculoskeletal: Yes: Osteoarthritis Rheumatology: Yes: Gout Endocrine: Yes: Hypothyroidism Dermatology: Yes: Psoriasis, Squamous Cell - Current Medications Current Medications: Home Medications Medication Instructions Recorded Carbidopa/Levodopa *Cr* 50/200 1 combo PO TID 08/25/18 [Sinemet *Cr* 50/200 -] Furosemide 40 mg PO DAILY 08/25/18 Levothyroxine [Synthroid -] 50 mcg PO DAILY 08/25/18 Metformin HCl [Glucophage] 500 mg PO BID 08/25/18 Pramipexole Dihydrochloride 0.25 mg PO QID 08/25/18 [Mirapex -] Rabeprazole Sodium 20 mg PO DAILY 08/25/18 Silodosin [Rapaflo] 50 mg PO DAILY 08/25/18 Apixaban [Eliquis] 5 mg PO BID 05/14/19 Donepezil HCl [Aricept -] 5 mg PO DAILY 05/14/19 Icosapent Ethyl [Vascepa] 2 gm PO BID 05/14/19 Metoprolol Succinate [Toprol Xl] 50 mg PO HS 05/14/19 Metoprolol Succinate [Toprol Xl] 75 mg PO AM 05/14/19 Oxycodone HCl 10 mg PO QID PRN 05/14/19 Spironolactone 25 mg PO DAILY 05/14/19 Tiotropium [place] [Spiriva] 18 mcg IH DAILY 05/14/19 Albuterol Sulfate [Albuterol 8.5 gm IH ASDIR PRN 10/10/19 Sulfate Hfa] Satellite Physical Exam - Physical Examination Vital Signs: Vital Signs Period Temp Pulse Resp BP Sys/Borjas Pulse Ox Last 24 Hr 98.4 F 94 22 124/82 94 General Appearance: Well Nourished, Well Developed, Alert & Oriented x3 ENT: Clear Lung: Normal air movement Extremities: Other (right hip-+ttp, decr rom, nvi, xrays show grade 4 hip djd) Neurological: Intact, Alert, Oriented Satellite Impression/Plan - Impression/Plan Impression: right hip djd Operative Procedure: right veronika thr Date to be Performed: 10/23/19
[2019-10-23] MEDS ORDERED: MAGNESIUM HYDROX 2400MG/30ML ORAL SUSPENSION 30 ML CUP PO PRN (07:56)
[2019-10-23] MEDS ORDERED: MAG HYDROX/AL HYDROX/SIMETH 30 ML UNIT-DOSE CUP PO PRN (07:56)
[2019-10-23] MEDS ORDERED: ONDANSETRON 4 MG/2 ML VIAL IVPUSH PRN (07:56)
[2019-10-23] MEDS ORDERED: LACTATED RINGERS SOLUTION 1,000 ML IV SCH ×2 (08:00→08:56)
[2019-10-23] MEDS ORDERED: VANCOMYCIN 1,000 MG VIAL (RESTRICTED TO ID ONLY) IVPB ONE (09:26)
--- NOTE | 2019-10-23 09:41 | OP ---
Operative Note - Note: Operative Date: 10/23/19 ([place]) Pre-Operative Diagnosis: right knee djd Operation: right veronika tkr Post-Operative Diagnosis: Same as Pre-op Surgeon: Vipin Proctor Ornithology Teacher: Boaz Dalton Anesthesiologist/FLOW MATCH SOFA CUTTER: Lonnie Nathan Anesthesia: Spinal, Local Specimens Removed: femoral head Estimated Blood Loss (mls): 150
[2019-10-23] MEDS ORDERED: PATIENT'S OWN MEDICATION (NON-FORMULARY) (Tiotropium Bromide [Spiriva] 18 MCG) IH SCH (10:00)
[2019-10-23] MEDS ORDERED: SILODOSIN PO SCH (10:00)
[2019-10-23] MEDS ORDERED: PATIENT'S OWN MEDICATION (NON-FORMULARY) (Rabeprazole Sodium [Rabeprazole Sodium] 20 MG) PO SCH (10:00)
[2019-10-23] MEDS ORDERED: PATIENT'S OWN MEDICATION (NON-FORMULARY) (Icosapent Ethyl [Vascepa] 2 GM) PO SCH (10:00)
[2019-10-23] MEDS ORDERED: PHENYLEPHRINE HCL 10 MG/1 ML SINGLE DOSE VIAL ONE (10:01)
[2019-10-23] MEDS ORDERED: ACETAMINOPHEN INJECTION 100 ML IVPB ONE (10:29)
[2019-10-23] MEDS: ACETAMINOPHEN 1000 MG/100 ML VIAL (NON FORMULARY) IVPB SCH ×2 (10:30→17:39)
[2019-10-23] MEDS: oxyCODONE HCL 5 MG TABLET PO PRN ×2 (13:53→16:44)
[2019-10-23] MEDS: PRAMIPEXOLE DIHYDROCHLORIDE 0.25 MG TABLET PO SCH ×3 (13:54→22:09)
[2019-10-23] MEDS ORDERED: SODIUM CHLORIDE 100 ML IVPB ONE ×2 (16:15→16:16)
[2019-10-23] MEDS: SODIUM CHLORIDE IVPB SCH (16:36)
[2019-10-23] MEDS: CEFAZOLIN IVPB SCH (16:36)
[2019-10-23] MEDS: metFORMIN HCL 500 MG TABLET (FP) PO SCH (16:37)
[2019-10-23] MEDS: INSULIN SLIDING SCALE (NOVOLOG) 1 VIAL SQ SCH ×2 (16:38→22:09)
[2019-10-23] MEDS: DONEPEZIL HCL 5 MG TABLET (FP) PO SCH (22:08)
[2019-10-23] MEDS: SENNOSIDES/DOCUSATE COMBO (SENNA PLUS) TABLET (UD) PO SCH (22:09)
[2019-10-24] MEDS ORDERED: ceFAZolin SODIUM 1 GM VIAL ONE (00:14)
[2019-10-24] MEDS ORDERED: SODIUM CHLORIDE 100 ML IVPB ONE (00:15)
[2019-10-24] MEDS: ACETAMINOPHEN 1000 MG/100 ML VIAL (NON FORMULARY) IVPB SCH ×2 (00:16→05:48)
[2019-10-24] MEDS: CEFAZOLIN IVPB SCH (00:17)
[2019-10-24] MEDS: SODIUM CHLORIDE IVPB SCH (00:17)
[2019-10-24] MEDS: LEVOTHYROXINE NA 50 MCG TABLET (FP) PO SCH (06:53)
[2019-10-24] MEDS: metFORMIN HCL 500 MG TABLET (FP) PO SCH ×2 (06:53→17:00)
[2019-10-24] MEDS: INSULIN SLIDING SCALE (NOVOLOG) 1 VIAL SQ SCH ×3 (06:53→18:50)
[2019-10-24 08:37] LABS: HEMATOCRIT 34.5 % (35.4-49); HEMOGLOBIN 11.8 GM/dl (11.7-16.9); MCH 30.1 pg (25.7-33.7); MCHC 34.1 g/dl (32.0-35.9); MEAN CELL VOLUME 88.1 fl (80-96); PLATELET COUNT 104 K/MM3 (134-434); RBC 3.92 M/mm3 (4.00-5.60); RDW 14.9 % (11.9-15.9); WHITE BLOOD COUNT 6.5 K/mm3 (4.0-10.8)
[2019-10-24] MEDS: APIXABAN 5 MG TABLET PO SCH ×2 (09:25→20:23)
[2019-10-24] MEDS: TAMSULOSIN HCL 0.4 MG CAP PO SCH (09:25)
[2019-10-24] MEDS: SPIRONOLACTONE 25 MG TABLET PO SCH (09:25)
[2019-10-24] MEDS: SENNOSIDES/DOCUSATE COMBO (SENNA PLUS) TABLET (UD) PO SCH ×2 (09:25→21:23)
--- NOTE | 2019-10-24 09:25 | PN ---
Progress Note (short form) - Note Progress Note: Ortho Pt seen and examined s/p right veronika thr pod #1 Selected Entries 10/24/19 06:00 Temperature 97.6 F Pulse Rate 97 H Respiratory 18 Rate Blood Pressure 110/62 Laboratory Tests 10/24/19 07:23 WBC 6.5 Hgb 11.8 Hct 34.5 L D Plt Count 104 L dressing c/d/i, calf soft, nt nvi a/p PT hip precautions dvt ppx pain control d/c planning to snf
[2019-10-24] MEDS: MULTIVITAMINS (DAILY MVI) TABLET (FP) PO SCH (09:26)
[2019-10-24] MEDS: PRAMIPEXOLE DIHYDROCHLORIDE 0.25 MG TABLET PO SCH ×3 (09:26→21:22)
[2019-10-24] MEDS: TIOTROPIUM BROMIDE 2.5 MCG (SPIRIVA) RESPIMAT INHALER IH SCH ×2 (09:27→10:36)
[2019-10-24] MEDS: PANTOPRAZOLE 40 MG TABLET PO SCH (09:27)
[2019-10-24] MEDS: FUROSEMIDE 40 MG TABLET (FP) PO SCH (09:27)
[2019-10-24] MEDS: oxyCODONE HCL 5 MG TABLET PO PRN ×2 (09:30→21:22)
--- NOTE | 2019-10-24 10:14 | PN ---
Progress Note, Physician Chief Complaint: s/p right total hip replacement under spinal anesthesia History of Present Illness: post op day one with peripheral nerve block for post op pain control - Current Medication List Current Medications: Active Medications Acetaminophen (Ofirmev Injection -) 1,000 mg IVPB Q6H [facility] Stop: 10/24/19 11:59 Last Admin: 10/24/19 05:48 Dose: 1,000 mg Documented by: Al Hydroxide/Mg Hydroxide (Mylanta Oral Suspension -) 30 ml PO Q4H PRN PRN Reason: DYSPEPSIA Albuterol Sulfate (Ventolin Hfa Inhaler -) 2 puff IH Q6H PRN PRN Reason: WHEEZING Apixaban (Eliquis -) 5 mg PO BID@0800,1999 [facility] Last Admin: 10/24/19 09:25 Dose: 5 mg Documented by: Carbidopa/Levodopa (Sinemet *Cr* 50/200 -) 1 combo PO TID [facility] Last Admin: 10/24/19 05:51 Dose: 1 combo Documented by: Donepezil HCl (Aricept -) 5 mg PO [facility] Last Admin: 10/23/19 22:08 Dose: 5 mg Documented by: Furosemide (Lasix -) 40 mg PO DAILY [facility] Last Admin: 10/24/19 09:27 Dose: 40 mg Documented by: Insulin Aspart (Novolog Vial Sliding Scale -) 1 vial SQ [facility]; Protocol Last Admin: 10/24/19 06:53 Dose: 2 units Documented by: Levothyroxine Sodium (Synthroid -) 50 mcg PO ACBK [facility] Last Admin: 10/24/19 06:53 Dose: 50 mcg Documented by: Magnesium Hydroxide (Milk Of Magnesia -) 30 ml PO PRN PRN PRN Reason: CONSTIPATION Metformin HCl (Glucophage -) 500 mg PO BIDI [facility] Last Admin: 10/24/19 06:53 Dose: 500 mg Documented by: Metoprolol Succinate (Toprol Xl -) 50 mg PO [facility] Last Admin: 10/23/19 22:10 Dose: Not Given Documented by: Metoprolol Succinate (Toprol Xl -) 75 mg PO AM [facility] Last Admin: 10/24/19 09:28 Dose: 75 mg Documented by: Multivitamins/Minerals/Vitamin C (Tab-A-Vit -) 1 tab PO DAILY [facility] Last Admin: 10/24/19 09:26 Dose: 1 tab Documented by: Non-Formulary Medication (Icosapent Ethyl [Vascepa]) 2 gm PO BID [facility] Ondansetron HCl (Zofran Injection) 4 mg IVPUSH Q6H PRN PRN Reason: NAUSEA Oxycodone HCl (Roxicodone -) 5 mg PO Q3H PRN PRN Reason: PAIN LEVEL 1-5 Last Admin: 10/24/19 09:30 Dose: 5 mg Documented by: Oxycodone HCl (Roxicodone -) 10 mg PO Q3H PRN PRN Reason: PAIN LEVEL 6-10 Last Admin: 10/23/19 16:44 Dose: 10 mg Documented by: Pantoprazole Sodium (Protonix -) 40 mg PO DAILY [facility] Last Admin: 10/24/19 09:27 Dose: 40 mg Documented by: Pramipexole Dihydrochloride (Mirapex -) 0.25 mg PO QID [facility] Last Admin: 10/24/19 09:26 Dose: 0.25 mg Documented by: Senna/Docusate Sodium (Pericolace -) 2 tablet PO BID [facility] Last Admin: 10/24/19 09:25 Dose: 2 tablet Documented by: Spironolactone (Aldactone -) 25 mg PO DAILY [facility] Last Admin: 10/24/19 09:25 Dose: 25 mg Documented by: Tamsulosin HCl (Flomax -) 0.4 mg PO DAILY@0830 [facility] Last Admin: 10/24/19 09:25 Dose: 0.4 mg Documented by: Tiotropium Spark[place] (Spiriva Respimat) 2 puff IH DAILY [facility] - Objective Vital Signs: Vital Signs Temperature 97.6 F 10/24/19 06:00 Pulse Rate 97 H 10/24/19 06:00 Respiratory Rate 18 10/24/19 06:00 Blood Pressure 110/62 10/24/19 06:00 O2 Sat by Pulse Oximetry (%) 96 10/24/19 06:00 Constitutional: Yes: Well Nourished Cardiovascular: Yes: WNL Respiratory: Yes: WNL Gastrointestinal: Yes: WNL Labs: CBC, BMP 10/24/19 07:23 Assessment/Plan no anesthetic complications, pain controlled. Dept of anesthesiology will sign off care at this time
--- NOTE | 2019-10-24 20:39 | SPEC ---
DATE OF OPERATION: 10/23/2019 PREOPERATIVE DIAGNOSIS: Degenerative joint disease right hip. POSTOPERATIVE DIAGNOSIS: Degenerative joint disease right hip. PROCEDURE PERFORMED: Right total hip replacement with robotic-assisted navigation (MAKOplasty). SURGICAL ATTENDING: Vipin Proctor MD [employer] CONDITIONING [employer]IL ASSEMBLER: SKYE Ross ANESTHESIA: Regional and spinal. CLOSURE: A [place] total hip system with a 56 Trident II press-fit acetabulum, a number 7 Accolade II press-fit femoral stem, a standard ceramic 36-mm femoral head. Number 1 Vicryl for fascia, 0 and 2-0 for the subcutaneous, 3-0 V-Loc for the skin, 4-0 undyed Vicryl for pin sites. ESTIMATED BLOOD LOSS: Less than 100 mL. COMPLICATIONS: None. CONDITION: To the recovery room in stable condition. DESCRIPTION OF PROCEDURE: The patient was taken to the operating room on October 23, 2019. Spinal and regional anesthesia was administered by the anesthesiologist. IV Kefzol and TXA were administered prophylactically prior to the case. The patient was placed in the lateral decubitus position will all prominences well-padded. The right hip area was prepped and draped in the usual sterile fashion. Using 3 small stab incisions over the iliac crest, 3 threaded pins were drilled in power fashion through the 2 tables of the crest. These pins were fastened and the navigation array for the Gerardo navigation system. Next, a 12 to 15-cm curved longitudinal incision over the posterolateral aspect of the greater trochanter was incised. Hemostasis was achieved with Bovie cautery. Sharp dissection was carried down to level of the fascia. The fascia was opened the entire length of the incision, spreading the fibers of the gluteus luiz in the direction of origin. A Charnley retractor was placed in this layer. Care was taken not to impale the sciatic nerve. The short external rotators were detached off the insertion of the greater trochanter and peeled off the capsule. A posterior capsulotomy was then performed. A check point was malleted into the greater trochanter and a point on the inferior pole of the patella was obtained as well. These 2 points were used to assess the preoperative offset and limb lengths of the hip. The hip was then dislocated. The femoral neck was then osteotomized down to the appropriate level as directed by the navigation device. Anterior and posterior retractors were placed, exposing the acetabulum. A circumferential labral excision was performed. A check point was malleted into the acetabulum as well. Multiple sites inside the acetabulum and around the rim were utilized to register the acetabulum with the navigation device. An excellent registration of less than 0.5 mm was obtained. The hip was then reamed with the appropriate reamer down to the appropriate depth, with the appropriate orientation and version as assessed on our preoperative plan for this patient. The reamer was removed and the acetabulum was inspected to have good bleeding surfaces throughout. The real acetabular cup was then malleted down into place, with the holes in the appropriate position, until an excellent fixation was obtained. No screws were necessary. The navigation device ensured appropriate orientation and version, with the depth as predetermined. The appropriate liner was then clipped into place. Attention was directed to the femur. The proximal femur was prepared by use a box chisel, a canal finder and serial broaches until the broach achieved excellent rigidity in the proximal femur with the appropriate version being applied. A calcar planer was used to smooth off the calcar flush with the trial components. A trial reduction with the appropriate head was done, and the hip was reduced. The hip was taken through a range of motion from full extension with external rotation to marked flexion, and was stable at 90 degrees of flexion. It was stable to marked abduction and internal rotation, with a positive hang test and negative telescoping. Limb lengths were ascertained visually as well as with the navigation device to be within the targeted range for this patient. The trial component was removed. The real component was then malleted into place. The head was cold welded to the trunnion, and the hip was reduced. Range of motion, stability and limb lengths were as described in the trial component. Then the hip was pulse antibiotic irrigated. Vancomycin powder was placed in the hip joint. The capsule was closed. The fascia was then closed as well using number 1 Vicryl interrupted suture, 0 and 2-0 subcutaneous, and 3-0 V-Loc for the skin. 4-0 undyed Vicryl was used to close the pin sites after the pins were removed. All check points were also removed. Sterile Aquacel dressing was applied. The patient was awakened from anesthesia and transferred into the supine position. Bilateral SCDs and an abduction pillow were placed. X-rays revealed excellent position of the components. The patient was transferred to the recovery room in stable condition, with no complications. Estimated blood loss was less than 100 mL. Chi MONTERROSO/[id number]
[2019-10-24] MEDS: DONEPEZIL HCL 5 MG TABLET (FP) PO SCH (21:23)
[2019-10-25] MEDS: metFORMIN HCL 500 MG TABLET (FP) PO SCH ×2 (06:29→16:54)
[2019-10-25] MEDS: LEVOTHYROXINE NA 50 MCG TABLET (FP) PO SCH (06:30)
[2019-10-25] MEDS: oxyCODONE HCL 5 MG TABLET PO PRN ×4 (06:30→21:15)
[2019-10-25 08:09] LABS: HEMATOCRIT 33.8 % (35.4-49); HEMOGLOBIN 11.4 GM/dl (11.7-16.9); MCH 29.7 pg (25.7-33.7); MCHC 33.6 g/dl (32.0-35.9); MEAN CELL VOLUME 88.4 fl (80-96); MEAN PLT VOLUME 9.7 fl (7.5-11.1); PLATELET COUNT 102 K/MM3 (134-434); RBC 3.82 M/mm3 (4.00-5.60); WHITE BLOOD COUNT 6.9 K/mm3 (4.0-10.8)
[2019-10-25] MEDS: MULTIVITAMINS (DAILY MVI) TABLET (FP) PO SCH ×2 (08:17→10:45)
[2019-10-25] MEDS: INSULIN SLIDING SCALE (NOVOLOG) 1 VIAL SQ SCH ×6 (08:17→21:14)
[2019-10-25] MEDS: PRAMIPEXOLE DIHYDROCHLORIDE 0.25 MG TABLET PO SCH ×5 (08:18→21:14)
[2019-10-25] MEDS: APIXABAN 5 MG TABLET PO SCH ×2 (08:32→19:30)
[2019-10-25] MEDS: TAMSULOSIN HCL 0.4 MG CAP PO SCH (08:35)
[2019-10-25] MEDS: SENNOSIDES/DOCUSATE COMBO (SENNA PLUS) TABLET (UD) PO SCH ×2 (10:43→21:13)
[2019-10-25] MEDS: PANTOPRAZOLE 40 MG TABLET PO SCH (10:43)
[2019-10-25] MEDS: FUROSEMIDE 40 MG TABLET (FP) PO SCH (10:44)
[2019-10-25] MEDS: SPIRONOLACTONE 25 MG TABLET PO SCH (10:44)
[2019-10-25] MEDS: TIOTROPIUM BROMIDE 2.5 MCG (SPIRIVA) RESPIMAT INHALER IH SCH (10:45)
[2019-10-25] MEDS: DONEPEZIL HCL 5 MG TABLET (FP) PO SCH (21:14)
[2019-10-26] MEDS: LEVOTHYROXINE NA 50 MCG TABLET (FP) PO SCH (06:33)
[2019-10-26] MEDS: metFORMIN HCL 500 MG TABLET (FP) PO SCH (06:33)
[2019-10-26] MEDS: INSULIN SLIDING SCALE (NOVOLOG) 1 VIAL SQ SCH (06:33)
[2019-10-26] MEDS: oxyCODONE HCL 5 MG TABLET PO PRN (06:40)
[2019-10-26 06:49] VITALS: TEMP 98.8
[2019-10-26] MEDS: TAMSULOSIN HCL 0.4 MG CAP PO SCH (09:04)
[2019-10-26] MEDS: APIXABAN 5 MG TABLET PO SCH (09:04)
[2019-10-26] MEDS: PANTOPRAZOLE 40 MG TABLET PO SCH (09:04)
[2019-10-26] MEDS: SENNOSIDES/DOCUSATE COMBO (SENNA PLUS) TABLET (UD) PO SCH (09:04)
[2019-10-26] MEDS: MULTIVITAMINS (DAILY MVI) TABLET (FP) PO SCH (09:04)
[2019-10-26] MEDS: PRAMIPEXOLE DIHYDROCHLORIDE 0.25 MG TABLET PO SCH ×2 (09:04→10:05)
[2019-10-26] MEDS: TIOTROPIUM BROMIDE 2.5 MCG (SPIRIVA) RESPIMAT INHALER IH SCH (09:05)
[2019-10-26] MEDS: SPIRONOLACTONE 25 MG TABLET PO SCH (10:28)
[2019-10-26] MEDS: FUROSEMIDE 40 MG TABLET (FP) PO SCH (10:28)
--- NOTE | 2019-10-26 10:50 | PN ---
Progress Note (short form) - Note Progress Note: AVSS COMFORTABLE BANDAGES DRY AND INTACT NVI CALF SOFT AND NT HCT STABLE IMP: DOING WELL PLAN: DC [facility]
[2019-10-26 11:00] VITALS: BP 105/72; PULSE 99
--- NOTE | 2019-10-26 18:15 | PATH ---
Surgical Pathology Report Patient Name: EBNITO BRAND Med. Rec. #: [id number] /Age/Gender: 1940 (Age: 78) / M Account: [id number] Location: [facility] MED-SURG Taken: 10/23/2019 Received: 10/23/2019 Reported: 10/26/2019 Physicians: Vipin Proctor M.D. Specimen(s) Received RIGHT FEMORAL HEAD Clinical History Osteoarthritis right hip Final Diagnosis FEMORAL HEAD, RIGHT, TOTAL HIP REPLACEMENT: DEGENERATIVE JOINT DISEASE. Electronically Signed Ruth Ann Harrington M.D. Gross Description Received in formalin, labeled "right femoral head," is a 5.2 x 5.2 x 4.2 cm. femoral head with a 1.5 cm in length portion of femoral neck attached. The margin of resection is smooth. There is a 4 cm in greatest dimension area of eburnation present. The remaining articular surface is soares-yellow and diffusely granular. The underlying trabecular bone is yellow and hard. A insurance claims representative section is submitted in one cassette, following decalcification. /10/24/2019 [facility]
== END 2019-10-26 10:59 | DRG 470 ==
LOC: FM/S 05:56
PROVIDERS: ADMIT Orthopaedic Surgery; ATTEND Orthopaedic Surgery
PROC: 8E0W0CZ Robotic Assisted Procedure of Trunk Region, Open Approach (ICD-10-PCS; 2019-10-23)
PROC: 0SR90JZ Replacement of Right Hip Joint with Synthetic Substitute, Open Approach (ICD-10-PCS; principal; 2019-10-23 08:34)
DX: M16.11 Unilateral primary osteoarthritis, right hip (principal); I25.10 Atherosclerotic heart disease of native coronary artery without angina pectoris; E78.5 Hyperlipidemia, unspecified; J44.9 Chronic obstructive pulmonary disease, unspecified; K21.9 Gastro-esophageal reflux disease without esophagitis; D69.6 Thrombocytopenia, unspecified; E03.9 Hypothyroidism, unspecified; M10.9 Gout, unspecified; G20 Parkinson's disease; I11.0 Hypertensive heart disease with heart failure; I50.9 Heart failure, unspecified; L40.9 Psoriasis, unspecified; K22.70 Barrett's esophagus without dysplasia; E11.51 Type 2 diabetes mellitus with diabetic peripheral angiopathy without gangrene; Z95.1 Presence of aortocoronary bypass graft; Z86.73 Personal history of transient ischemic attack (TIA), and cerebral infarction without residual deficits
CPT/HCPCS: 36415; 73502-TC-RT-FY; 82962; 85027; 88305-TC; 88311-TC; 94760; 97010-GP; 97116-GP; 97163-GP; J0131

== ENCOUNTER 2021-04-20 16:53 | Emergency (ER) | payer OTHER, BC ==
[2021-04-20 17:13] VITALS: TEMP 97.8; BMI 40.6
[2021-04-20 18:38] LABS: BASO % 0.4 % (0-2.0); EOS % 1.8 % (0-4.5); HEMATOCRIT 43.1 % (35.4-49); HEMOGLOBIN 14.7 GM/dL (11.7-16.9); MCH 31.4 pg (25.7-33.7); MCHC 34.1 g/dl (32.0-35.9); NEUT % 59.8 % (42.8-82.8); PLATELET COUNT 115 10^3/uL (134-434); RBC 4.68 M/mm3 (4.00-5.60); RDW 14.3 % (11.9-15.9); WHITE BLOOD COUNT 6.5 K/mm3 (4.0-10.0)
[2021-04-20 18:47] LABS: INR 1.81 (0.83-1.09); PROTHROMBIN TIME (PATIENT) 20.9 SEC (9.7-13.0)
[2021-04-20 18:49] LABS: ACTIVATED PTT 35.1 SECONDS (25.2-36.5)
[2021-04-20 19:07] LABS: CHLORIDE 106 mmol/L (98-107); SODIUM 141 mmol/L (136-145)
[2021-04-20 19:09] LABS: ALBUMIN 3.3 g/dl (3.4-5.0)
[2021-04-20 19:10] LABS: ANION GAP 7 MMOL/L (8-16); BLOOD UREA NITROGEN 26.6 mg/dL (7-18); CO2 29 mmol/L (21-32); GLUCOSE,RANDOM 138 mg/dL (74-106); MAGNESIUM 1.7 mg/dL (1.8-2.4)
[2021-04-20 19:13] LABS: CREATININE 1.3 mg/dL (0.55-1.3); SGOT/AST 10 U/L (15-37); SGPT/ALT 15 U/L (13-61)
[2021-04-20 19:14] LABS: BILIRUBIN,TOTAL 1.1 mg/dL (0.2-1); TOT PROT 6.8 g/dl (6.4-8.2)
[2021-04-20 19:16] LABS: ALK PHOS 67 U/L (45-117)
[2021-04-20 19:22] LABS: N-TERMINAL BNP 1788.7 pg/ml (5-450)
[2021-04-20 19:56] VITALS: BP 171/92; PULSE 76
[2021-04-20] MEDS ORDERED: DEXAMETHASONE 4 MG TABLET (FP) PO ONE (20:00)
[2021-04-20] MEDS ORDERED: DEXAMETHASONE 4 MG TABLET (FP) ONE (20:08)
== END 2021-04-20 20:59 | disposition home or self-care (01) ==
LOC: JER 16:53
DX: U07.1 COVID-19 (principal)
CPT/HCPCS: 36415; 71046-TC-FY; 80053; 82550; 83735; 83880; 84484; 85025; 85610; 85730; 93005; 93010; 99285-25

== ENCOUNTER 2022-01-17 12:05 | Emergency (ER) | payer OTHER, BC ==
[2022-01-17 12:39] VITALS: BP 132/72; RESP 22; TEMP 98; BMI 40.6
[2022-01-17] MEDS ORDERED: ACETAMINOPHEN 500 MG TABLET (FP) PO ONE (13:33)
[2022-01-17] MEDS ORDERED: ACETAMINOPHEN 500 MG TABLET (FP) ONE (13:37)
[2022-01-17 15:17] VITALS: PULSE 92
== END 2022-01-17 15:31 | disposition home or self-care (01) ==
LOC: FER 12:05
DX: R51.9 Headache, unspecified (principal); M54.50 Low back pain, unspecified; W19.XXXA Unspecified fall, initial encounter
CPT/HCPCS: 70450-TC; 71046-TC-FY; 72100-TC-FY; 72125-TC; 72170-TC-FY; 72220-TC-FY; 99284-25

== ENCOUNTER 2022-06-07 13:38 | Inpatient (IN) | payer OTHER, BC ==
[2022-06-07] MEDS ORDERED: ALBUTEROL SO4 2.5/IPRATROPIUM 0.5 INH SOL 3 ML VIAL.NEB. NEB ONE ×4 (13:50→13:53)
[2022-06-07] MEDS ORDERED: CEFTRIAXONE 1 GM in DEXTROSE 5%-WATER - 100 ML IVPB ONE (14:55)
[2022-06-07 14:59] LABS: INR 1.89 (0.83-1.09); PROTHROMBIN TIME (PATIENT) 21.9 SEC (9.7-13.0)
[2022-06-07 15:02] LABS: ACTIVATED PTT 34.5 SECONDS (25.2-36.5)
[2022-06-07 15:07] LABS: ALBUMIN 3.8 g/dl (3.4-5.0); BILIRUBIN,TOTAL 2.6 mg/dl (0.2-1); CALCIUM 9.4 mg/dl (8.5-10); CREATININE 1.5 mg/dl (0.55-1.3); MAGNESIUM 1.6 mg/dL (1.8-2.4); TOT PROT 7.6 g/dl (6.4-8.2)
[2022-06-07] MEDS ORDERED: AZITHROMYCIN 500 MG VIAL IVPB ONE (15:20)
[2022-06-07] MEDS ORDERED: cefTRIAXone SODIUM 1 GM VIAL ONE (15:20)
[2022-06-07 15:23] LABS: HEMOGLOBIN 16.2 G/dL (11.7-16.9); MCH 33.3 pg (25.7-33.7); MCHC 35.3 g/dl (32.0-35.9); MEAN CELL VOLUME 94.4 fl (80-96); PLATELET COUNT 111.6 10^3/uL (134-434); RBC 4.87 10^6/uL (4.00-5.60); RDW 13.1 % (11.9-15.9); WHITE BLOOD COUNT 10.2 10^3/uL (4.0-10.8)
[2022-06-07] MEDS: AZITHROMYCIN IVPB 500 MG in DEXTROSE 5%-WATER - 250 ML IVPB ONE (15:55)
[2022-06-07] MEDS ORDERED: MAGNESIUM SULF 50% (8.12 MEQ/2 ML-1 GM VIAL) IVPB ONE (16:01)
[2022-06-07] MEDS ORDERED: methylPREDNISolone NA SUCC 125 MG/2 ML VIAL IVPB ONE (16:35)
[2022-06-07] MEDS ORDERED: ALBUTEROL SO4 0.083% IH SOL 2.5 MG/3 ML VIAL.NEB. NEB ONE ×2 (16:35→17:11)
[2022-06-07] MEDS ORDERED: methylPREDNISolone NA SUCC 125 MG/2 ML VIAL ONE (17:10)
[2022-06-07] MEDS ORDERED: MAGNESIUM SULFATE IN WATER 2 GM/50 ML IVPB IVPB ONE (17:11)
[2022-06-07 17:35] LABS: VENOUS BASE EXCESS 3.3 mmol/L (-2-2); VENOUS O2 SATURATION 33.9 % (70-80); VENOUS PCO2 62.7 mmHg (38-52); VENOUS PH 7.326 (7.310-7.410)
[2022-06-07 18:05] LABS: N-TERMINAL BNP 1562.3 pg/ml (5-450)
[2022-06-07 18:27] LABS: PLATELET ESTIMATE SLT DECREASE
[2022-06-07] MEDS ORDERED: ACETAMINOPHEN 325 MG TABLET (FP) ONE (19:40)
[2022-06-07] MEDS ORDERED: ACETAMINOPHEN 325 MG TABLET (FP) PO ONE (19:45)
[2022-06-07] MEDS ORDERED: ALBUTEROL SO4 2.5/IPRATROPIUM 0.5 INH SOL 3 ML VIAL.NEB. NEB PRN (21:12)
[2022-06-07 21:20] VITALS: BMI 40.3
[2022-06-08] MEDS: methylPREDNISolone NA SUCC 40 MG/1 ML VIAL IVPUSH SCH ×3 (03:00→18:09)
[2022-06-08] MEDS ORDERED: ALBUTEROL SO4 HFA INHALER IH PRN (05:38)
[2022-06-08] MEDS: LEVOTHYROXINE NA 50 MCG TABLET (FP) PO SCH (07:02)
[2022-06-08] MEDS: metoPROLOL SUCCINATE 25 MG TAB.SR.24H (FP) PO SCH (07:02)
[2022-06-08] MEDS: CARBIDOPA/LEVODOPA 25/250 TABLET (FP) PO SCH ×3 (07:02→22:37)
[2022-06-08] MEDS ORDERED: oxyCODONE HCL 5 MG TABLET PO PRN (08:03)
[2022-06-08] MEDS: FUROSEMIDE 40 MG TABLET (FP) PO SCH (09:53)
[2022-06-08] MEDS: LACTOBACILLUS ACIDOPHILUS 1 TABLET PO SCH (09:53)
[2022-06-08] MEDS: DOXAZOSIN MESYLATE 4 MG TABLET PO SCH (09:53)
[2022-06-08] MEDS: PANTOPRAZOLE 40 MG TABLET PO SCH (09:53)
[2022-06-08] MEDS: PRAMIPEXOLE DIHYDROCHLORIDE 0.25 MG TABLET PO SCH ×2 (09:53→22:38)
[2022-06-08] MEDS: APIXABAN 5 MG TABLET PO SCH ×2 (09:53→22:38)
[2022-06-08] MEDS: ALBUTEROL SO4 2.5/IPRATROPIUM 0.5 INH SOL 3 ML VIAL.NEB. NEB SCH ×3 (09:59→22:38)
[2022-06-08] MEDS: BUDESONIDE/FORMETEROL FUMARATE 160/4.5 mcg INHALER IH SCH ×2 (10:24→22:40)
[2022-06-08] MEDS: INSULIN SLIDING SCALE (NOVOLOG) 1 VIAL SQ SCH ×3 (11:52→22:46)
[2022-06-08] MEDS: CEFTRIAXONE 1 GM in DEXTROSE 5%-WATER - 50 ML IVPB SCH (11:57)
[2022-06-08] MEDS: AZITHROMYCIN IVPB 500 MG/250 ML BAG IVPB SCH (12:29)
[2022-06-08 21:22] VITALS: RESP 16
[2022-06-08] MEDS ORDERED: ATORVASTATIN CA 10 MG TABLET (FP) PO SCH (22:00)
[2022-06-08] MEDS: ACETAMINOPHEN 500 MG TABLET (FP) PO PRN (22:37)
[2022-06-09] MEDS: ACETAMINOPHEN 500 MG TABLET (FP) PO PRN (06:52)
[2022-06-09] MEDS: CARBIDOPA/LEVODOPA 25/250 TABLET (FP) PO SCH (06:52)
[2022-06-09] MEDS: LEVOTHYROXINE NA 50 MCG TABLET (FP) PO SCH (06:52)
[2022-06-09] MEDS: metoPROLOL SUCCINATE 25 MG TAB.SR.24H (FP) PO SCH (06:52)
[2022-06-09] MEDS: ALBUTEROL SO4 2.5/IPRATROPIUM 0.5 INH SOL 3 ML VIAL.NEB. NEB SCH ×2 (06:59→10:17)
[2022-06-09] MEDS ORDERED: INSULIN SLIDING SCALE (NOVOLOG) 1 VIAL SQ SCH (07:34)
[2022-06-09 08:06] LABS: ALBUMIN 2.9 g/dl (3.4-5.0); BILIRUBIN,TOTAL 0.8 mg/dl (0.2-1); CALCIUM 8.6 mg/dl (8.5-10); CREATININE 1.6 mg/dl (0.55-1.3); TOT PROT 6.2 g/dl (6.4-8.2)
[2022-06-09 09:36] LABS: BASO % 0.1 % (0-2.0); HEMATOCRIT 39.8 % (35.4-49); HEMOGLOBIN 13.9 GM/dL (11.7-16.9); LYMPH % 9.3 % (8-40); MCH 32.6 pg (25.7-33.7); MCHC 34.8 g/dl (32.0-35.9); MEAN CELL VOLUME 93.6 fl (80-96); MEAN PLT VOLUME 10.2 fl (7.5-11.1); MONO % 7.2 % (3.8-10.2); NEUT % 83.4 % (42.8-82.8); PLATELET COUNT 127 10^3/uL (134-434); RBC 4.25 M/mm3 (4.00-5.60); RDW 13.3 % (11.9-15.9); WHITE BLOOD COUNT 11.6 K/mm3 (4.0-10.0)
[2022-06-09] MEDS ORDERED: predniSONE 20 MG TABLET (UD) PO SCH (10:00)
[2022-06-09] MEDS: FUROSEMIDE 40 MG TABLET (FP) PO SCH (10:15)
[2022-06-09] MEDS: APIXABAN 5 MG TABLET PO SCH (10:16)
[2022-06-09] MEDS: PRAMIPEXOLE DIHYDROCHLORIDE 0.25 MG TABLET PO SCH (10:16)
[2022-06-09] MEDS: DOXAZOSIN MESYLATE 4 MG TABLET PO SCH (10:16)
[2022-06-09] MEDS: PANTOPRAZOLE 40 MG TABLET PO SCH (10:17)
[2022-06-09] MEDS: LACTOBACILLUS ACIDOPHILUS 1 TABLET PO SCH (10:18)
[2022-06-09] MEDS: BUDESONIDE/FORMETEROL FUMARATE 160/4.5 mcg INHALER IH SCH (10:19)
[2022-06-09] MEDS: AZITHROMYCIN IVPB 500 MG in DEXTROSE 5%-WATER - 250 ML IVPB ONE (10:23)
[2022-06-09] MEDS: AZITHROMYCIN IVPB 500 MG/250 ML BAG IVPB SCH (10:24)
[2022-06-09] MEDS: CEFTRIAXONE 1 GM in DEXTROSE 5%-WATER - 50 ML IVPB SCH (11:52)
[2022-06-09 14:35] VITALS: BP 116/67; PULSE 76; TEMP 97.5
[2022-06-09] MEDS ORDERED: INSULIN (LEVEMIR) 100 UNITS/ML UNITS SQ SCH (22:00)
== END 2022-06-09 14:59 | disposition home or self-care (01) | DRG 190 ==
LOC: FER 13:38 → FM/S 18:47
PROVIDERS: ADMIT Internal Medicine; ATTEND Internal Medicine
DX: J44.0 Chronic obstructive pulmonary disease with (acute) lower respiratory infection (principal); J18.9 Pneumonia, unspecified organism; J44.1 Chronic obstructive pulmonary disease with (acute) exacerbation; I25.10 Atherosclerotic heart disease of native coronary artery without angina pectoris; E78.5 Hyperlipidemia, unspecified; J44.9 Chronic obstructive pulmonary disease, unspecified; K21.9 Gastro-esophageal reflux disease without esophagitis; E03.9 Hypothyroidism, unspecified; G20 Parkinson's disease; L40.9 Psoriasis, unspecified; D69.6 Thrombocytopenia, unspecified; G89.29 Other chronic pain; M10.9 Gout, unspecified; I73.9 Peripheral vascular disease, unspecified; I48.91 Unspecified atrial fibrillation; N40.0 Benign prostatic hyperplasia without lower urinary tract symptoms; Z96.642 Presence of left artificial hip joint; E83.42 Hypomagnesemia; Z86.73 Personal history of transient ischemic attack (TIA), and cerebral infarction without residual deficits; Z95.1 Presence of aortocoronary bypass graft; Z85.828 Personal history of other malignant neoplasm of skin
CPT/HCPCS: 0241U-QW; 36415; 71045-TC-FY; 80053; 82803; 82962; 83735; 83880; 84484; 85025; 85027; 85610; 85730; 87040; 93005; 94640; 97116-GP; 97162-GP; 99285-25

== ENCOUNTER 2022-08-10 17:59 | Observation (INO) | payer OTHER, BC ==
[2022-08-10] MEDS ORDERED: MAG HYDROX/AL HYDROX/SIMETH 30 ML UNIT-DOSE CUP PO ONE (18:43)
[2022-08-10] MEDS ORDERED: MAG HYDROX/AL HYDROX/SIMETH 30 ML UNIT-DOSE CUP ONE (18:56)
[2022-08-10 19:01] LABS: HEMATOCRIT 45.9 % (35.4-49); HEMOGLOBIN 15.7 G/dL (11.7-16.9); MCH 33.1 pg (25.7-33.7); MCHC 34.2 g/dl (32.0-35.9); MEAN CELL VOLUME 96.8 fl (80-96); MEAN PLT VOLUME 9.4 fl (7.5-11.1); PLATELET COUNT 119.4 10^3/uL (134-434); RBC 4.74 10^6/uL (4.00-5.60); RDW 14.6 % (11.9-15.9); WHITE BLOOD COUNT 7.1 10^3/uL (4.0-10.8)
[2022-08-10 19:08] LABS: INR 1.34 (0.83-1.09); PROTHROMBIN TIME (PATIENT) 15.4 SEC (9.7-13.0)
[2022-08-10 19:15] LABS: ALBUMIN 3.9 g/dl (3.4-5.0); BILIRUBIN,TOTAL 1.7 mg/dl (0.2-1); CALCIUM 9.3 mg/dl (8.5-10); CREATININE 1.5 mg/dl (0.55-1.3); POTASSIUM 4.5 mmol/L (3.5-5.1); TOT PROT 6.7 g/dl (6.4-8.2)
[2022-08-10 19:23] LABS: PLATELET ESTIMATE SLT DECREASE
[2022-08-10] MEDS ORDERED: ASPIRIN 325 MG TABLET PO ONE (20:41)
[2022-08-10] MEDS ORDERED: ASPIRIN 325 MG TABLET ONE (21:01)
[2022-08-10 21:36] LABS: N-TERMINAL BNP 1049.3 pg/ml (5-450)
[2022-08-10] MEDS ORDERED: ALBUTEROL SO4 2.5/IPRATROPIUM 0.5 INH SOL 3 ML VIAL.NEB. NEB ONE (22:54)
[2022-08-11 00:34] VITALS: BMI 39.5
[2022-08-11] MEDS: CARBIDOPA/LEVODOPA 25/250 TABLET (FP) PO SCH ×3 (06:38→21:38)
[2022-08-11] MEDS: LEVOTHYROXINE NA 50 MCG TABLET (FP) PO SCH (06:38)
[2022-08-11 08:39] LABS: ALBUMIN 3.3 g/dl (3.4-5.0); BILIRUBIN,TOTAL 1.7 mg/dl (0.2-1); CALCIUM 8.9 mg/dl (8.5-10); CREATININE 1.4 mg/dl (0.55-1.3); MAGNESIUM 1.6 mg/dL (1.8-2.4); POTASSIUM 3.4 mmol/L (3.5-5.1); TOT PROT 5.8 g/dl (6.4-8.2)
[2022-08-11] MEDS: FUROSEMIDE 40 MG TABLET (FP) PO SCH (09:57)
[2022-08-11] MEDS: APIXABAN 5 MG TABLET PO SCH ×2 (09:57→21:38)
[2022-08-11] MEDS: PANTOPRAZOLE SODIUM 40 MG VIAL IVPUSH SCH (09:57)
[2022-08-11] MEDS ORDERED: ASPIRIN 81 MG CHEWABLE TABLETS PO SCH (10:00)
[2022-08-11 10:37] LABS: BASO % 0.5 % (0-2.0); EOS % 1.6 % (0-4.5); HEMATOCRIT 39.4 % (35.4-49); HEMOGLOBIN 13.9 GM/dL (11.7-16.9); LYMPH % 35.2 % (8-40); MCH 32.4 pg (25.7-33.7); MCHC 35.3 g/dl (32.0-35.9); MEAN CELL VOLUME 91.6 fl (80-96); MEAN PLT VOLUME 9.3 fl (7.5-11.1); MONO % 10.5 % (3.8-10.2); NEUT % 52.2 % (42.8-82.8); PLATELET COUNT 98 10^3/uL (134-434); RDW 14.8 % (11.9-15.9); WHITE BLOOD COUNT 4.3 K/mm3 (4.0-10.0)
[2022-08-11] MEDS: SPIRONOLACTONE 25 MG TABLET PO SCH (12:35)
[2022-08-11] MEDS ORDERED: ATORVASTATIN CA 10 MG TABLET (FP) PO SCH (22:00)
[2022-08-12 01:03] VITALS: RESP 19
[2022-08-12] MEDS: CARBIDOPA/LEVODOPA 25/250 TABLET (FP) PO SCH ×2 (06:15→16:36)
[2022-08-12] MEDS: LEVOTHYROXINE NA 50 MCG TABLET (FP) PO SCH (06:15)
[2022-08-12 06:36] VITALS: BP 117/59; PULSE 76; TEMP 98
[2022-08-12] MEDS ORDERED: REGADENOSON 0.4 MG/5 ML PRE-FILLED SYRINGE IVPUSH ONE ×2 (09:27→10:00)
[2022-08-12] MEDS: SPIRONOLACTONE 25 MG TABLET PO SCH (16:34)
[2022-08-12] MEDS: APIXABAN 5 MG TABLET PO SCH (16:34)
[2022-08-12] MEDS: FUROSEMIDE 40 MG TABLET (FP) PO SCH (16:35)
[2022-08-12] MEDS: PANTOPRAZOLE SODIUM 40 MG VIAL IVPUSH SCH (16:36)
== END 2022-08-12 18:44 | disposition home or self-care (01) ==
LOC: FER 17:59 → SUPCPDRO 17:59 → FM/S 20:31
PROVIDERS: ADMIT Internal Medicine
PROC: 3E033GC Introduction of Other Therapeutic Substance into Peripheral Vein, Percutaneous Approach (ICD-10-PCS; principal; 2022-08-10)
DX: I25.10 Atherosclerotic heart disease of native coronary artery without angina pectoris (principal); E78.5 Hyperlipidemia, unspecified; I73.9 Peripheral vascular disease, unspecified; I50.9 Heart failure, unspecified; K76.0 Fatty (change of) liver, not elsewhere classified; E03.9 Hypothyroidism, unspecified; Z95.1 Presence of aortocoronary bypass graft; K21.9 Gastro-esophageal reflux disease without esophagitis; J44.9 Chronic obstructive pulmonary disease, unspecified; G20 Parkinson's disease; Z86.73 Personal history of transient ischemic attack (TIA), and cerebral infarction without residual deficits; Z88.2 Allergy status to sulfonamides
CPT/HCPCS: 0241U-QW; 36415; 71045-TC-FY; 78452-TC; 80053; 81003; 81015; 82962; 83735; 83880; 84443; 84484; 85025; 85027; 85610; 85730; 93005; 93017; 93306-TC; 96374; 99285-25; A9502; G0378; J2785

== ENCOUNTER 2022-10-13 16:23 | Observation (INO) | payer OTHER, BC ==
[2022-10-13] MEDS ORDERED: methylPREDNISolone NA SUCC 125 MG/2 ML VIAL IVPUSH ONE (16:41)
[2022-10-13] MEDS ORDERED: methylPREDNISolone NA SUCC 125 MG/2 ML VIAL ONE (16:51)
[2022-10-13] MEDS ORDERED: ALBUTEROL SO4 2.5/IPRATROPIUM 0.5 INH SOL 3 ML VIAL.NEB. NEB ONE ×3 (16:51→20:54)
[2022-10-13] MEDS: ALBUTEROL SO4 2.5/IPRATROPIUM 0.5 INH SOL 3 ML VIAL.NEB. NEB SCH ×3 (17:13→17:49)
[2022-10-13 17:49] LABS: ALBUMIN 3.6 g/dl (3.4-5.0); BILIRUBIN,TOTAL 0.9 mg/dl (0.2-1); BLOOD UREA NITROGEN 27.3 mg/dl (7-18); CALCIUM 8.6 mg/dl (8.5-10.1); CREATININE 1.5 mg/dl (0.6-1.3); POTASSIUM 3.7 mmol/L (3.5-5.1); SGOT/AST 19.9 U/L (15-37); SGPT/ALT 8.9 U/L (7-52); TOT PROT 6.2 g/dl (6.4-8.2)
[2022-10-13 17:56] LABS: HEMATOCRIT 43.9 % (35.4-49); HEMOGLOBIN 15.1 G/dL (11.7-16.9); MCH 32.8 pg (25.7-33.7); MCHC 34.4 g/dl (32.0-35.9); MEAN CELL VOLUME 95.5 fl (80-96); MEAN PLT VOLUME 9.9 fl (7.5-11.1); PLATELET COUNT 111.2 10^3/uL (134-434); RDW 13.2 % (11.9-15.9)
[2022-10-13 18:14] LABS: ANISOCYTOSIS 1+; PLATELET ESTIMATE SLT DECREASE
[2022-10-13 18:18] LABS: ACTIVATED PTT 36.1 SECONDS (25.2-36.5); INR 1.58 (0.83-1.09); PROTHROMBIN TIME (PATIENT) 18.3 SEC (9.7-13.0)
[2022-10-13 21:24] LABS: MAGNESIUM 1.5 mg/dL (1.8-2.4); PHOSPHOROUS 2.93 (2.5-4.9)
[2022-10-13] MEDS ORDERED: DOCUSATE SODIUM 100 MG CAPSULE (FP) PO PRN (21:36)
[2022-10-13] MEDS ORDERED: ACETAMINOPHEN 1000 MG/100 ML BAG IVPB PRN (21:40)
[2022-10-13 23:07] VITALS: BMI 39.0
[2022-10-14] MEDS ORDERED: methylPREDNISolone NA SUCC 40 MG/1 ML VIAL IVPUSH SCH (02:00)
[2022-10-14] MEDS: INSULIN SLIDING SCALE (NOVOLOG) 1 VIAL SQ SCH ×5 (03:49→21:15)
[2022-10-14] MEDS ORDERED: FUROSEMIDE 40 MG/4 ML INJECTABLE VIAL IVPUSH ONE (06:00)
[2022-10-14] MEDS ORDERED: ALBUTEROL SO4 2.5/IPRATROPIUM 0.5 INH SOL 3 ML VIAL.NEB. NEB SCH (08:00)
[2022-10-14] MEDS ORDERED: MAGNESIUM 2GM/50ML STERILE WATER IVPB IVPB ONE (08:00)
[2022-10-14] MEDS: CARBIDOPA/LEVODOPA 25/250 TABLET (FP) PO SCH ×3 (08:12→21:15)
[2022-10-14] MEDS: LEVOTHYROXINE NA 50 MCG TABLET (FP) PO SCH (08:12)
[2022-10-14 09:06] LABS: BLOOD UREA NITROGEN 31.1 mg/dl (7-18); CALCIUM 8.5 mg/dl (8.5-10.1); CREATININE 1.5 mg/dl (0.6-1.3); POTASSIUM 4.1 mmol/L (3.5-5.1)
[2022-10-14] MEDS: predniSONE 20 MG TABLET (UD) PO SCH (09:27)
[2022-10-14] MEDS: APIXABAN 5 MG TABLET PO SCH ×2 (09:27→21:15)
[2022-10-14 10:25] LABS: BASO % 0.3 % (0-2.0); HEMATOCRIT 42.1 % (35.4-49); LYMPH % 19.3 % (8-40); MCH 31.2 pg (25.7-33.7); MCHC 33.3 g/dl (32.0-35.9); MEAN CELL VOLUME 93.6 fl (80-96); MONO % 4.8 % (3.8-10.2); NEUT % 75.6 % (42.8-82.8); PLATELET COUNT 121 10^3/uL (134-434); RDW 13.3 % (11.9-15.9); WHITE BLOOD COUNT 4.3 K/mm3 (4.0-10.0)
[2022-10-14] MEDS: FUROSEMIDE 40 MG/4 ML INJECTABLE VIAL IVPUSH SCH (13:43)
[2022-10-14] MEDS: LEVALBUTEROL HCL 0.63 MG/3 ML VIAL.NEB. IH SCH ×2 (13:44→21:15)
[2022-10-14] MEDS: BACITRACIN ZINC 15 GM TUBE TOPICAL OINTMENT TP SCH ×2 (18:55→21:17)
[2022-10-14] MEDS: ATORVASTATIN CA 10 MG TABLET (FP) PO SCH (21:15)
[2022-10-14] MEDS ORDERED: ACETAMINOPHEN 325 MG TABLET (FP) PO PRN (21:36)
[2022-10-15] MEDS: LEVOTHYROXINE NA 50 MCG TABLET (FP) PO SCH (06:56)
[2022-10-15] MEDS: CARBIDOPA/LEVODOPA 25/250 TABLET (FP) PO SCH ×3 (06:56→21:45)
[2022-10-15] MEDS: FUROSEMIDE 40 MG/4 ML INJECTABLE VIAL IVPUSH SCH ×2 (06:56→14:35)
[2022-10-15] MEDS: INSULIN SLIDING SCALE (NOVOLOG) 1 VIAL SQ SCH ×4 (06:56→21:44)
[2022-10-15] MEDS: LEVALBUTEROL HCL 0.63 MG/3 ML VIAL.NEB. IH SCH ×2 (08:17→14:34)
[2022-10-15 09:01] LABS: BLOOD UREA NITROGEN 34.4 mg/dl (7-18); CALCIUM 8.7 mg/dl (8.5-10.1); CREATININE 1.4 mg/dl (0.6-1.3); PHOSPHOROUS 3.19 (2.5-4.9); POTASSIUM 3.8 mmol/L (3.5-5.1)
[2022-10-15] MEDS ORDERED: guaiFENesin/D-M SUGAR-FREE/ACLHOL-FREE (200 MG/10 MG) 5 ML PO PRN (09:23)
[2022-10-15] MEDS: INSULIN (LEVEMIR) 100 UNITS/ML UNITS SQ SCH ×2 (10:13→21:43)
[2022-10-15] MEDS: APIXABAN 5 MG TABLET PO SCH ×2 (10:13→21:46)
[2022-10-15] MEDS: predniSONE 20 MG TABLET (UD) PO SCH (10:13)
[2022-10-15] MEDS: BACITRACIN ZINC 15 GM TUBE TOPICAL OINTMENT TP SCH ×2 (10:16→21:47)
[2022-10-15] MEDS ORDERED: INSULIN (NOVOLOG) ASPART 100 UNITS/ML 10ML VIAL SQ SCH ×2 (11:00)
[2022-10-15] MEDS: INSULIN (NOVOLOG) ASPART 100 UNITS/ML 10ML VIAL SQ SCH ×2 (11:40→16:39)
[2022-10-15] MEDS: IPRATROPIUM BR 0.02% 0.5 MG/2.5 ML VIAL.NEB. NEB SCH ×3 (12:47→20:28)
[2022-10-15] MEDS ORDERED: REFRIGERATED ANITBIOTICS ONE (14:52)
[2022-10-15] MEDS: METOPROLOL TARTRATE 25 MG TABLET (FP) PO SCH (20:33)
[2022-10-15] MEDS: ATORVASTATIN CA 10 MG TABLET (FP) PO SCH (21:42)
[2022-10-16] MEDS: FUROSEMIDE 40 MG/4 ML INJECTABLE VIAL IVPUSH SCH (06:35)
[2022-10-16] MEDS: INSULIN (NOVOLOG) ASPART 100 UNITS/ML 10ML VIAL SQ SCH ×2 (06:35→11:45)
[2022-10-16] MEDS: CARBIDOPA/LEVODOPA 25/250 TABLET (FP) PO SCH (06:35)
[2022-10-16] MEDS: LEVOTHYROXINE NA 50 MCG TABLET (FP) PO SCH (06:35)
[2022-10-16] MEDS: INSULIN SLIDING SCALE (NOVOLOG) 1 VIAL SQ SCH ×2 (06:36→12:09)
[2022-10-16] MEDS: IPRATROPIUM BR 0.02% 0.5 MG/2.5 ML VIAL.NEB. NEB SCH (08:54)
[2022-10-16 09:02] VITALS: BP 130/73; RESP 20; TEMP 97.6
[2022-10-16 09:28] LABS: BLOOD UREA NITROGEN 37.6 mg/dl (7-18); CALCIUM 8.6 mg/dl (8.5-10.1); CREATININE 1.4 mg/dl (0.6-1.3); POTASSIUM 3.9 mmol/L (3.5-5.1)
[2022-10-16] MEDS: APIXABAN 5 MG TABLET PO SCH (09:56)
[2022-10-16 09:57] VITALS: PULSE 110
[2022-10-16] MEDS: INSULIN (LEVEMIR) 100 UNITS/ML UNITS SQ SCH (09:57)
[2022-10-16] MEDS: BACITRACIN ZINC 15 GM TUBE TOPICAL OINTMENT TP SCH (09:57)
[2022-10-16] MEDS: METOPROLOL TARTRATE 25 MG TABLET (FP) PO SCH (09:57)
[2022-10-16] MEDS: predniSONE 20 MG TABLET (UD) PO SCH (09:57)
[2022-10-16 12:09] LABS: BASO % 0.3 % (0-2.0); HEMATOCRIT 44.3 % (35.4-49); HEMOGLOBIN 14.6 GM/dL (11.7-16.9); LYMPH % 15.7 % (8-40); MCH 31.2 pg (25.7-33.7); MCHC 32.9 g/dl (32.0-35.9); MEAN CELL VOLUME 94.8 fl (80-96); MEAN PLT VOLUME 9.7 fl (7.5-11.1); MONO % 6.7 % (3.8-10.2); NEUT % 77.3 % (42.8-82.8); PLATELET COUNT 140 10^3/uL (134-434); RBC 4.67 M/mm3 (4.00-5.60); RDW 13.3 % (11.9-15.9); WHITE BLOOD COUNT 9.3 K/mm3 (4.0-10.0)
== END 2022-10-16 12:46 | disposition home or self-care (01) ==
LOC: FER 16:23 → FM/S 21:20
PROVIDERS: ADMIT Internal Medicine; ATTEND Internal Medicine
DX: R06.02 Shortness of breath (principal)
CPT/HCPCS: 0241U-QW; 36415; 71045-TC-FY; 80048; 80053; 82962; 83735; 83880; 84100; 84443; 84484; 85025; 85027; 85610; 85730; 93005; 93970-TC; 94640; 94761; 97116-GP; 97162-GP; 99285-25; G0378

== ENCOUNTER 2022-10-24 15:19 | Inpatient (IN) | payer OTHER, BC ==
[2022-10-24 16:57] LABS: HEMATOCRIT 55.3 % (35.4-49); HEMOGLOBIN 19.4 G/dL (11.7-16.9); MCH 33.3 pg (25.7-33.7); MCHC 35.1 g/dl (32.0-35.9); MEAN CELL VOLUME 94.9 fl (80-96); MEAN PLT VOLUME 10.9 fl (7.5-11.1); PLATELET COUNT 126.3 10^3/uL (134-434); RBC 5.83 10^6/uL (4.00-5.60); WHITE BLOOD COUNT 22.2 10^3/uL (4.0-10.8)
[2022-10-24 17:53] LABS: ALBUMIN 3.6 g/dl (3.4-5.0); BILIRUBIN,TOTAL 2.6 mg/dl (0.2-1); BLOOD UREA NITROGEN 45.3 mg/dl (7-18); CALCIUM 9.3 mg/dl (8.5-10.1); CREATININE 1.7 mg/dl (0.6-1.3); POTASSIUM 3.5 mmol/L (3.5-5.1); SGOT/AST 12.4 U/L (15-37); SGPT/ALT 11.2 U/L (7-52); TOT PROT 5.9 g/dl (6.4-8.2)
[2022-10-24] MEDS ORDERED: VANCOMYCIN 1 GM in D5W (PRE-DOCKED) 1,000 MG/250 ML (RESTRICTED TO ID ONLY IVPB ONE (18:03)
[2022-10-24] MEDS ORDERED: PIPERACILLIN/TAZOB 3.375 GM 3.375 GM in DEXTROSE 5%-WATER - 50 ML IVPB ONE (18:04)
[2022-10-24] MEDS ORDERED: PIPERACILLIN/TAZOBACTAM 3.375 GM VIAL IVPB ONE (18:10)
[2022-10-24] MEDS ORDERED: VANCOMYCIN 1,000 MG VIAL (RESTRICTED TO ID ONLY) ONE (18:10)
[2022-10-24 18:56] LABS: EPITHELIAL CELLS FEW /hpf
[2022-10-24 19:08] LABS: N-TERMINAL BNP 1134.8 pg/ml (5-450)
[2022-10-24 20:09] LABS: LACTIC ACID 4.2 mmol/L (0.4-2.0)
[2022-10-24] MEDS ORDERED: ACETAMINOPHEN 325 MG TABLET (FP) PO PRN (20:42)
[2022-10-24] MEDS ORDERED: DOCUSATE SODIUM 100 MG CAPSULE (FP) PO PRN (20:42)
[2022-10-24] MEDS ORDERED: LACTATED RINGERS SOLUTION 1000 ML INFUS.BAG IV ONE (20:45)
[2022-10-24] MEDS ORDERED: SODIUM CHLORIDE 1,000 ML IV SCH (20:45)
[2022-10-24] MEDS ORDERED: ACETAMINOPHEN 1000 MG/100 ML BAG IVPB PRN (20:54)
[2022-10-24 23:33] LABS: LACTIC ACID 2.6 mmol/L (0.4-2.0)
[2022-10-25] MEDS: APIXABAN 5 MG TABLET PO SCH ×3 (01:15→21:58)
[2022-10-25] MEDS: PIPERACILLIN/TAZOB 3.375 GM 3.375 GM in DEXTROSE 5%-WATER - 50 ML IVPB SCH ×7 (01:15→20:40)
[2022-10-25] MEDS: METOPROLOL TARTRATE 25 MG TABLET (FP) PO SCH ×3 (01:15→21:57)
[2022-10-25] MEDS: TIOTROPIUM BROMIDE 2.5 MCG (SPIRIVA) RESPIMAT INHALER IH SCH ×2 (01:15→11:00)
[2022-10-25 02:08] LABS: POTASSIUM 4.2 mmol/L (3.5-5.1)
[2022-10-25 02:10] LABS: BLOOD UREA NITROGEN 41.9 mg/dL (7-18); MAGNESIUM 1.7 mg/dL (1.8-2.4)
[2022-10-25 02:13] LABS: CREATININE 1.6 mg/dL (0.55-1.3); PHOSPHOROUS 3.4 mg/dL (2.5-4.9)
[2022-10-25 02:15] LABS: LACTIC ACID 2.1 mmol/L (0.4-2.0)
[2022-10-25] MEDS ORDERED: MAGNESIUM SULF 50% (8.12 MEQ/2 ML-1 GM VIAL) IVPB ONE ×2 (03:45→11:08)
[2022-10-25] MEDS: CARBIDOPA/LEVODOPA 25/250 TABLET (FP) PO SCH ×3 (06:20→21:58)
[2022-10-25] MEDS: LEVOTHYROXINE NA 50 MCG TABLET (FP) PO SCH (06:20)
[2022-10-25 06:34] VITALS: BMI 37.5
[2022-10-25 09:12] LABS: INR 1.79 (0.83-1.09); PROTHROMBIN TIME (PATIENT) 20.6 SEC (9.7-13.0)
[2022-10-25 09:14] LABS: ACTIVATED PTT 30.2 SECONDS (25.2-36.5)
[2022-10-25] MEDS ORDERED: FUROSEMIDE 40 MG TABLET (FP) PO SCH (10:00)
[2022-10-25] MEDS ORDERED: FUROSEMIDE 40 MG/4 ML INJECTABLE VIAL IVPUSH SCH (10:00)
[2022-10-25] MEDS ORDERED: DOXYCYCLINE INJECTION 100 MG in DEXTROSE 5%-WATER 100 ML IVPB SCH (10:00)
[2022-10-25] MEDS ORDERED: SILODOSIN 8 MG PO SCH (10:00)
[2022-10-25 10:14] LABS: BASO % 0.1 % (0-2.0); EOS % 0.3 % (0-4.5); HEMATOCRIT 44.5 % (35.4-49); HEMOGLOBIN 14.7 GM/dL (11.7-16.9); LYMPH % 10.1 % (8-40); MCH 30.9 pg (25.7-33.7); MCHC 33.1 g/dl (32.0-35.9); MEAN CELL VOLUME 93.3 fl (80-96); MEAN PLT VOLUME 10.1 fl (7.5-11.1); MONO % 7.9 % (3.8-10.2); NEUT % 81.6 % (42.8-82.8); PLATELET COUNT 97 10^3/uL (134-434); RBC 4.77 M/mm3 (4.00-5.60); RDW 13.5 % (11.9-15.9); WHITE BLOOD COUNT 11.4 K/mm3 (4.0-10.0)
[2022-10-25] MEDS: PANTOPRAZOLE 20 MG TABLET PO SCH (10:59)
[2022-10-25] MEDS ORDERED: MAGNESIUM SULFATE IN WATER 2 GM/50 ML IVPB IVPB ONE (11:30)
[2022-10-25 12:26] LABS: CHLORIDE 105 mmol/L (98-107); POTASSIUM 3.6 mmol/L (3.5-5.1); SODIUM 140 mmol/L (136-145)
[2022-10-25 12:28] LABS: ERYTHROCYTE SEDIMENTATION RATE 7 mm/hr (0-20)
[2022-10-25 12:33] LABS: GLUCOSE,RANDOM 152 mg/dL (74-106)
[2022-10-25 12:34] LABS: ALK PHOS 46 U/L (45-117); ANION GAP 5 MMOL/L (8-16); CO2 30 mmol/L (21-32)
[2022-10-25 12:35] LABS: ALBUMIN 2.6 g/dl (3.4-5.0)
[2022-10-25 12:36] LABS: TOT PROT 5.1 g/dl (6.4-8.2)
[2022-10-25 12:39] LABS: CALCIUM 8.7 mg/dL (8.5-10.1)
[2022-10-25 12:40] LABS: MAGNESIUM 2.1 mg/dL (1.8-2.4)
[2022-10-25 12:42] LABS: SGPT/ALT < 6 U/L (13-61)
[2022-10-25 12:43] LABS: CREATININE 1.4 mg/dL (0.55-1.3)
[2022-10-25 12:44] LABS: PHOSPHOROUS 3.1 mg/dL (2.5-4.9); SGOT/AST 9 U/L (15-37)
[2022-10-25 12:46] LABS: BILIRUBIN,TOTAL 2.8 mg/dL (0.2-1)
[2022-10-25] MEDS: VANCOMYCIN/WATER FOR INJ (PEG) 1,000 MG/200 ML BAG IVPB SCH (18:31)
[2022-10-25] MEDS ORDERED: ACETAMINOPHEN 325 MG TABLET (FP) PO PRN (20:42)
[2022-10-25] MEDS: ATORVASTATIN CA 10 MG TABLET (FP) PO SCH (21:58)
[2022-10-26] MEDS: PIPERACILLIN/TAZOB 3.375 GM 3.375 GM in DEXTROSE 5%-WATER - 50 ML IVPB SCH ×3 (02:55→18:13)
[2022-10-26] MEDS: LEVOTHYROXINE NA 50 MCG TABLET (FP) PO SCH (06:06)
[2022-10-26] MEDS: CARBIDOPA/LEVODOPA 25/250 TABLET (FP) PO SCH ×3 (06:06→21:37)
[2022-10-26] MEDS ORDERED: AMMONIUM LACTATE 12% LOTION 225 GM BOTTLE TP PRN (08:00)
[2022-10-26 08:29] LABS: HEMATOCRIT 44.7 % (35.4-49); HEMOGLOBIN 15.1 G/dL (11.7-16.9); MCHC 33.7 g/dl (32.0-35.9); MEAN CELL VOLUME 94.9 fl (80-96); MEAN PLT VOLUME 10.1 fl (7.5-11.1); PLATELET COUNT 79.5 10^3/uL (134-434); RBC 4.71 10^6/uL (4.00-5.60); RDW 13.5 % (11.9-15.9); WHITE BLOOD COUNT 7.2 10^3/uL (4.0-10.8)
[2022-10-26 08:40] LABS: BLOOD UREA NITROGEN 29.4 mg/dl (7-18); CALCIUM 7.9 mg/dl (8.5-10.1); CREATININE 1.4 mg/dl (0.6-1.3); MAGNESIUM 1.8 mg/dL (1.8-2.4); PHOSPHOROUS 2.55 (2.5-4.9); POTASSIUM 3.3 mmol/L (3.5-5.1)
[2022-10-26] MEDS: FUROSEMIDE 40 MG/4 ML INJECTABLE VIAL IVPUSH SCH (09:38)
[2022-10-26] MEDS: METOPROLOL TARTRATE 25 MG TABLET (FP) PO SCH ×2 (09:38→21:38)
[2022-10-26] MEDS: PANTOPRAZOLE 20 MG TABLET PO SCH (09:38)
[2022-10-26] MEDS: APIXABAN 5 MG TABLET PO SCH ×2 (09:39→21:38)
[2022-10-26] MEDS: TAMSULOSIN HCL 0.4 MG CAP PO SCH (09:39)
[2022-10-26] MEDS: CALCIUM ACETATE/AL SULFATE TOP 1.9 GM/PACKET PACKET TP SCH (09:40)
[2022-10-26] MEDS ORDERED: POTASSIUM CHLORIDE ORAL LIQUID 20 MEQ/15 ML PO ONE (10:00)
[2022-10-26] MEDS: TIOTROPIUM BROMIDE 2.5 MCG (SPIRIVA) RESPIMAT INHALER IH SCH (10:47)
[2022-10-26] MEDS: VANCOMYCIN/WATER FOR INJ (PEG) 1,000 MG/200 ML BAG IVPB SCH (18:13)
[2022-10-26] MEDS: ATORVASTATIN CA 10 MG TABLET (FP) PO SCH (21:38)
[2022-10-27] MEDS: PIPERACILLIN/TAZOB 3.375 GM 3.375 GM in DEXTROSE 5%-WATER - 50 ML IVPB SCH ×3 (01:54→18:10)
[2022-10-27] MEDS: CARBIDOPA/LEVODOPA 25/250 TABLET (FP) PO SCH ×3 (05:45→21:19)
[2022-10-27] MEDS: LEVOTHYROXINE NA 50 MCG TABLET (FP) PO SCH (06:34)
[2022-10-27 08:50] LABS: HEMATOCRIT 46.2 % (35.4-49); HEMOGLOBIN 15.4 G/dL (11.7-16.9); MCH 31.8 pg (25.7-33.7); MCHC 33.3 g/dl (32.0-35.9); MEAN CELL VOLUME 95.4 fl (80-96); MEAN PLT VOLUME 10.1 fl (7.5-11.1); PLATELET COUNT 96.4 10^3/uL (134-434); RBC 4.84 10^6/uL (4.00-5.60); RDW 13.9 % (11.9-15.9); WHITE BLOOD COUNT 6.7 10^3/uL (4.0-10.8)
[2022-10-27] MEDS: APIXABAN 5 MG TABLET PO SCH ×2 (09:36→21:19)
[2022-10-27] MEDS: TIOTROPIUM BROMIDE 2.5 MCG (SPIRIVA) RESPIMAT INHALER IH SCH (09:36)
[2022-10-27] MEDS: METOPROLOL TARTRATE 25 MG TABLET (FP) PO SCH ×2 (09:36→21:19)
[2022-10-27] MEDS: TAMSULOSIN HCL 0.4 MG CAP PO SCH (09:36)
[2022-10-27] MEDS: PANTOPRAZOLE 20 MG TABLET PO SCH (09:36)
[2022-10-27] MEDS: CALCIUM ACETATE/AL SULFATE TOP 1.9 GM/PACKET PACKET TP SCH (09:37)
[2022-10-27 09:51] LABS: BLOOD UREA NITROGEN 23.8 mg/dl (7-18); CALCIUM 8.1 mg/dl (8.5-10.1); CREATININE 1.2 mg/dl (0.6-1.3); MAGNESIUM 1.8 mg/dL (1.8-2.4); PHOSPHOROUS 2.49 (2.5-4.9); POTASSIUM 3.7 mmol/L (3.5-5.1)
[2022-10-27] MEDS: FUROSEMIDE 40 MG/4 ML INJECTABLE VIAL IVPUSH SCH (10:00)
[2022-10-27] MEDS ORDERED: NAPH,MB-DB/K PH,MBDB POWDER PACKET PO ONE (10:30)
[2022-10-27] MEDS: VANCOMYCIN/WATER FOR INJ (PEG) 1,000 MG/200 ML BAG IVPB SCH (20:19)
[2022-10-27] MEDS: ATORVASTATIN CA 10 MG TABLET (FP) PO SCH (21:19)
[2022-10-28] MEDS: PIPERACILLIN/TAZOB 3.375 GM 3.375 GM in DEXTROSE 5%-WATER - 50 ML IVPB SCH ×3 (03:17→17:48)
[2022-10-28] MEDS: CARBIDOPA/LEVODOPA 25/250 TABLET (FP) PO SCH ×3 (06:01→21:30)
[2022-10-28] MEDS: LEVOTHYROXINE NA 50 MCG TABLET (FP) PO SCH (06:01)
[2022-10-28 08:07] LABS: HEMATOCRIT 44.7 % (35.4-49); HEMOGLOBIN 15.1 G/dL (11.7-16.9); MCH 32.2 pg (25.7-33.7); MCHC 33.8 g/dl (32.0-35.9); MEAN CELL VOLUME 95.3 fl (80-96); MEAN PLT VOLUME 10.2 fl (7.5-11.1); PLATELET COUNT 100.9 10^3/uL (134-434); RBC 4.69 10^6/uL (4.00-5.60); RDW 13.9 % (11.9-15.9); WHITE BLOOD COUNT 5.5 10^3/uL (4.0-10.8)
[2022-10-28 08:17] LABS: BLOOD UREA NITROGEN 22.2 mg/dl (7-18); CALCIUM 7.9 mg/dl (8.5-10.1); CREATININE 1.1 mg/dl (0.6-1.3); MAGNESIUM 1.7 mg/dL (1.8-2.4); PHOSPHOROUS 2.26 (2.5-4.9); POTASSIUM 3.5 mmol/L (3.5-5.1)
[2022-10-28] MEDS: TAMSULOSIN HCL 0.4 MG CAP PO SCH (09:41)
[2022-10-28] MEDS: METOPROLOL TARTRATE 25 MG TABLET (FP) PO SCH ×2 (09:41→21:30)
[2022-10-28] MEDS: PANTOPRAZOLE 20 MG TABLET PO SCH (09:41)
[2022-10-28] MEDS: CALCIUM ACETATE/AL SULFATE TOP 1.9 GM/PACKET PACKET TP SCH (09:44)
[2022-10-28] MEDS: FUROSEMIDE 40 MG/4 ML INJECTABLE VIAL IVPUSH SCH (09:44)
[2022-10-28] MEDS: TIOTROPIUM BROMIDE 2.5 MCG (SPIRIVA) RESPIMAT INHALER IH SCH (09:44)
[2022-10-28] MEDS: APIXABAN 5 MG TABLET PO SCH ×2 (09:44→21:30)
[2022-10-28] MEDS ORDERED: MAGNESIUM SULF 50% (8.12 MEQ/2 ML-1 GM VIAL) IVPB ONE (10:22)
[2022-10-28] MEDS ORDERED: MAGNESIUM SULFATE IN WATER 2 GM/50 ML IVPB IVPB ONE (10:30)
[2022-10-28] MEDS: NAPH,MB-DB/K PH,MBDB POWDER PACKET PO SCH ×2 (11:52→21:30)
[2022-10-28] MEDS: VANCOMYCIN/WATER FOR INJ (PEG) 1,000 MG/200 ML BAG IVPB SCH (20:46)
[2022-10-28] MEDS: ATORVASTATIN CA 10 MG TABLET (FP) PO SCH (21:30)
[2022-10-29] MEDS: PIPERACILLIN/TAZOB 3.375 GM 3.375 GM in DEXTROSE 5%-WATER - 50 ML IVPB SCH ×2 (03:45→10:14)
[2022-10-29] MEDS: LEVOTHYROXINE NA 50 MCG TABLET (FP) PO SCH (06:42)
[2022-10-29] MEDS: CARBIDOPA/LEVODOPA 25/250 TABLET (FP) PO SCH ×2 (06:42→14:49)
[2022-10-29 09:03] LABS: BLOOD UREA NITROGEN 20.3 mg/dl (7-18); CALCIUM 7.9 mg/dl (8.5-10.1); CREATININE 1.1 mg/dl (0.6-1.3); MAGNESIUM 1.9 mg/dL (1.8-2.4); PHOSPHOROUS 2.32 (2.5-4.9); POTASSIUM 3.4 mmol/L (3.5-5.1)
[2022-10-29 09:45] VITALS: RESP 18
[2022-10-29] MEDS: METOPROLOL TARTRATE 25 MG TABLET (FP) PO SCH (10:14)
[2022-10-29] MEDS: APIXABAN 5 MG TABLET PO SCH (10:14)
[2022-10-29] MEDS: PANTOPRAZOLE 20 MG TABLET PO SCH (10:14)
[2022-10-29] MEDS: CALCIUM ACETATE/AL SULFATE TOP 1.9 GM/PACKET PACKET TP SCH (10:15)
[2022-10-29] MEDS: FUROSEMIDE 40 MG/4 ML INJECTABLE VIAL IVPUSH SCH (10:15)
[2022-10-29] MEDS: TAMSULOSIN HCL 0.4 MG CAP PO SCH (10:16)
[2022-10-29] MEDS: TIOTROPIUM BROMIDE 2.5 MCG (SPIRIVA) RESPIMAT INHALER IH SCH (10:17)
[2022-10-29] MEDS ORDERED: POTASSIUM CHLORIDE ORAL LIQUID 20 MEQ/15 ML PO ONE (11:15)
[2022-10-29] MEDS ORDERED: NAPH,MB-DB/K PH,MBDB POWDER PACKET PO ONE (11:45)
[2022-10-29 14:32] VITALS: BP 104/54; PULSE 86; TEMP 97.8
== END 2022-10-29 17:07 | disposition home or self-care (01) | DRG 603 ==
LOC: FER 15:19 → FM/S 20:05
PROVIDERS: ADMIT Internal Medicine
DX: L03.116 Cellulitis of left lower limb (principal); E87.20 Acidosis, unspecified; I13.0 Hypertensive heart and chronic kidney disease with heart failure and stage 1 through stage 4 chronic kidney disease, or unspecified chronic kidney disease; J90 Pleural effusion, not elsewhere classified; N39.0 Urinary tract infection, site not specified; E03.9 Hypothyroidism, unspecified; L40.9 Psoriasis, unspecified; N18.9 Chronic kidney disease, unspecified; I50.9 Heart failure, unspecified; I48.91 Unspecified atrial fibrillation; D69.6 Thrombocytopenia, unspecified; I25.10 Atherosclerotic heart disease of native coronary artery without angina pectoris; N40.0 Benign prostatic hyperplasia without lower urinary tract symptoms; K21.9 Gastro-esophageal reflux disease without esophagitis; M10.9 Gout, unspecified; J44.9 Chronic obstructive pulmonary disease, unspecified; E87.6 Hypokalemia; B96.5 Pseudomonas (aeruginosa) (mallei) (pseudomallei) as the cause of diseases classified elsewhere; I73.89 Other specified peripheral vascular diseases; G20 Parkinson's disease; Z86.73 Personal history of transient ischemic attack (TIA), and cerebral infarction without residual deficits; Z95.1 Presence of aortocoronary bypass graft
CPT/HCPCS: 0241U-QW; 36415; 71045-TC-FY; 71250-TC; 73590-TC-LT-FY; 80048; 80053; 81003; 81015; 83036; 83605; 83735; 83880; 84100; 84484; 85025; 85027; 85610; 85651; 85730; 86140; 87040; 87086; 87186; 87899; 93005; 93971-TC; 97116-GP; 97161-GP; 99285-25; G0480

== ENCOUNTER 2024-04-09 19:29 | Inpatient (IN) | payer OTHER, BC ==
[2024-04-09] MEDS ORDERED: ACETAMINOPHEN 325 MG TABLET (FP) ONE (22:28)
[2024-04-09 22:35] LABS: BASO % 0.2 % (0-2.0); EOS % 0.2 % (0-4.5); HEMATOCRIT 40.4 % (35.4-49); HEMOGLOBIN 13.6 GM/dL (11.7-16.9); LYMPH % 14.3 % (8-40); MCH 30.8 pg (25.7-33.7); MCHC 33.6 g/dl (32.0-35.9); MEAN CELL VOLUME 91.6 fl (80-96); MEAN PLT VOLUME 8.8 fl (7.5-11.1); MONO % 17.5 % (3.8-10.2); NEUT % 67.8 % (42.8-82.8); PLATELET COUNT 129 10^3/uL (134-434); RBC 4.41 M/mm3 (4.00-5.60); RDW 14.9 % (11.9-15.9); WHITE BLOOD COUNT 9.5 K/mm3 (4.0-10.0)
[2024-04-09] MEDS: ACETAMINOPHEN 325 MG TABLET (FP) PO ONE (22:35)
[2024-04-09 23:02] LABS: POTASSIUM 3.3 mmol/L (3.5-5.1)
[2024-04-09 23:04] LABS: CALCIUM 8.5 mg/dL (8.5-10.1)
[2024-04-09 23:05] LABS: BLOOD UREA NITROGEN 32.3 mg/dL (7-18); MAGNESIUM 1.7 mg/dL (1.8-2.4)
[2024-04-09 23:08] LABS: CREATININE 1.6 mg/dL (0.55-1.3); PHOSPHOROUS 3.3 mg/dL (2.5-4.9)
[2024-04-09 23:09] LABS: BILIRUBIN,TOTAL 0.9 mg/dL (0.2-1); TOT PROT 6.4 g/dl (6.4-8.2)
[2024-04-10] MEDS ORDERED: DOCUSATE SODIUM 100 MG CAPSULE (FP) PO PRN (04:05)
[2024-04-10 05:45] LABS: URINE APPEARANCE CLOUDY; URINE BILIRUBIN NEGATIVE (NEGATIVE); URINE COLOR YELLOW; URINE GLUCOSE (UA) NEGATIVE (NEGATIVE); URINE KETONE NEGATIVE (NEGATIVE); URINE LEUK ESTERASE 3+ (NEGATIVE); URINE NITRITE NEGATIVE (NEGATIVE); URINE PROTEIN 1+ (NEGATIVE); URINE UROBILINOGEN 0.2 mg/dL (0.2-1.0)
[2024-04-10] MEDS ORDERED: ALBUTEROL SO4 0.083% IH SOL 2.5 MG/3 ML VIAL.NEB. NEB PRN (06:01)
[2024-04-10 06:58] LABS: EPI CELLS 0 /uL (0-25.1); HYALINE CASTS 0.13 /uL (0-3.1); URINE BACTERIA 11328.6 /uL (0-1359); URINE RBC 189.7 /uL (0-23.9); URINE WBC 2269.2 /uL (0-25.8); YEAST NONE SEEN (NEGATIVE)
[2024-04-10 07:30] LABS: BASO % 0.4 % (0-2.0); HEMOGLOBIN 12.9 GM/dL (11.7-16.9); LYMPH % 20.7 % (8-40); MCH 30.6 pg (25.7-33.7); MCHC 33.1 g/dl (32.0-35.9); MEAN CELL VOLUME 92.3 fl (80-96); MEAN PLT VOLUME 8.9 fl (7.5-11.1); MONO % 19.9 % (3.8-10.2); PLATELET COUNT 127 10^3/uL (134-434); RBC 4.23 M/mm3 (4.00-5.60); RDW 14.7 % (11.9-15.9); WHITE BLOOD COUNT 7.2 K/mm3 (4.0-10.0)
[2024-04-10] MEDS: LEVOTHYROXINE NA 50 MCG TABLET (FP) PO SCH (07:42)
[2024-04-10] MEDS: PANTOPRAZOLE 20 MG TABLET PO SCH (07:42)
[2024-04-10 07:53] LABS: POTASSIUM 3.3 mmol/L (3.5-5.1)
[2024-04-10 07:57] LABS: CALCIUM 8.5 mg/dL (8.5-10.1)
[2024-04-10 07:58] LABS: BLOOD UREA NITROGEN 32.2 mg/dL (7-18); MAGNESIUM 1.8 mg/dL (1.8-2.4)
[2024-04-10 08:01] LABS: CREATININE 1.5 mg/dL (0.55-1.3)
[2024-04-10] MEDS ORDERED: TAMSULOSIN HCL 0.4 MG CAP ONE (08:11)
[2024-04-10] MEDS: TAMSULOSIN HCL 0.4 MG CAP PO SCH (08:13)
[2024-04-10] MEDS ORDERED: PIPERACILLIN/TAZOB 3.375 GM 3.375 GM/50 ML BAG IVPB ONE (09:08)
[2024-04-10] MEDS ORDERED: APIXABAN 5 MG TABLET ONE (09:09)
[2024-04-10] MEDS ORDERED: POTASSIUM CHLORIDE TABS 20 MEQ TABLET.ER (FP) PO ONE (09:10)
[2024-04-10] MEDS: POTASSIUM CHLORIDE TABS 20 MEQ TABLET.ER (FP) PO SCH (09:12)
[2024-04-10] MEDS: APIXABAN 5 MG TABLET PO SCH (09:12)
[2024-04-10 11:06] VITALS: BMI 88.2
[2024-04-10] MEDS: PIPERACILLIN/TAZOB 3.375 GM 50 ML IVPB SCH (11:42)
[2024-04-10] MEDS: PRIMIDONE 50 MG TABLET PO SCH (11:43)
[2024-04-10] MEDS: ACETAMINOPHEN 325 MG TABLET (FP) PO PRN (11:45)
[2024-04-10] MEDS: INSULIN ASPART SLIDING SCALE (NOVOLOG) 1 VIAL SQ SCH (11:53)
[2024-04-10] MEDS: ROSUVASTATIN CA 10 MG TABLET PO SCH (21:59)
[2024-04-11 10:02] LABS: BASO % 0.4 % (0-2.0); EOS % 1.1 % (0-4.5); HEMATOCRIT 39.6 % (35.4-49); HEMOGLOBIN 12.8 GM/dL (11.7-16.9); LYMPH % 18.1 % (8-40); MCH 30.2 pg (25.7-33.7); MCHC 32.4 g/dl (32.0-35.9); MEAN CELL VOLUME 93.4 fl (80-96); MEAN PLT VOLUME 9.2 fl (7.5-11.1); MONO % 13.2 % (3.8-10.2); NEUT % 67.2 % (42.8-82.8); PLATELET COUNT 136 10^3/uL (134-434); RBC 4.24 M/mm3 (4.00-5.60); RDW 14.9 % (11.9-15.9); WHITE BLOOD COUNT 6.7 K/mm3 (4.0-10.0)
[2024-04-11 10:28] LABS: POTASSIUM 3.7 mmol/L (3.5-5.1)
[2024-04-11 10:31] LABS: CALCIUM 8.6 mg/dL (8.5-10.1)
[2024-04-11 10:32] LABS: ALBUMIN 2.7 g/dl (3.4-5.0); BLOOD UREA NITROGEN 24.7 mg/dL (7-18)
[2024-04-11 10:35] LABS: CREATININE 1.4 mg/dL (0.55-1.3)
[2024-04-11 10:36] LABS: BILIRUBIN,TOTAL 1.6 mg/dL (0.2-1)
[2024-04-11] MEDS: KCL 10 MEQ IVPB 10 MEQ/100 ML INFUS.BAG IVPB SCH (10:52)
[2024-04-11] MEDS: POLYETHYLENE GLYCOL (HEALTHYLAX) 3350 17 GM PACKET PO SCH (11:52)
[2024-04-11] MEDS: FUROSEMIDE 40 MG TABLET (FP) PO SCH (13:13)
[2024-04-11] MEDS: PIPERACILLIN/TAZOB 3.375 GM 3.375 GM in DEXTROSE 5%-WATER - 50 ML IVPB SCH (17:34)
[2024-04-11] MEDS: BACITRACIN ZINC 15 GM TUBE TOPICAL OINTMENT TP SCH (22:11)
[2024-04-12] MEDS: oxyCODONE HCL 5 MG TABLET PO PRN (03:35)
[2024-04-12 08:34] LABS: HEMATOCRIT 40.4 % (35.4-49); HEMOGLOBIN 13.7 GM/dL (11.7-16.9); MCH 31.1 pg (25.7-33.7); MCHC 33.9 g/dl (32.0-35.9); MEAN CELL VOLUME 91.7 fl (80-96); MEAN PLT VOLUME 8.9 fl (7.5-11.1); PLATELET COUNT 140 10^3/uL (134-434); RDW 14.8 % (11.9-15.9); WHITE BLOOD COUNT 5.7 K/mm3 (4.0-10.0)
[2024-04-12 09:04] LABS: POTASSIUM 3.8 mmol/L (3.5-5.1)
[2024-04-12 09:06] LABS: CALCIUM 8.7 mg/dL (8.5-10.1)
[2024-04-12 09:07] LABS: ALBUMIN 2.7 g/dl (3.4-5.0); MAGNESIUM 1.8 mg/dL (1.8-2.4)
[2024-04-12 09:10] LABS: CREATININE 1.3 mg/dL (0.55-1.3); PHOSPHOROUS 3.6 mg/dL (2.5-4.9)
[2024-04-12 09:11] LABS: BILIRUBIN,TOTAL 0.6 mg/dL (0.2-1); TOT PROT 6.2 g/dl (6.4-8.2)
[2024-04-13 08:21] VITALS: TEMP 97.5
[2024-04-13 12:27] VITALS: RESP 18
[2024-04-13 12:30] VITALS: BP 122/71; PULSE 98
== END 2024-04-13 12:50 | disposition home or self-care (01) | DRG 683 ==
LOC: JER 19:29 → JERBED 04-10 01:54 → J4S 04-10 10:00 → JERBED 04-10 10:22 → J4S 04-10 10:25 → OBSVTOIN 04-10 13:49
PROVIDERS: ADMIT Internal Medicine; ATTEND Internal Medicine
DX: N17.9 Acute kidney failure, unspecified (principal); I13.0 Hypertensive heart and chronic kidney disease with heart failure and stage 1 through stage 4 chronic kidney disease, or unspecified chronic kidney disease; I50.32 Chronic diastolic (congestive) heart failure; M25.511 Pain in right shoulder; G20.A1 Parkinson's disease without dyskinesia, without mention of fluctuations; E03.9 Hypothyroidism, unspecified; J44.9 Chronic obstructive pulmonary disease, unspecified; D69.6 Thrombocytopenia, unspecified; E78.5 Hyperlipidemia, unspecified; I25.10 Atherosclerotic heart disease of native coronary artery without angina pectoris; I48.91 Unspecified atrial fibrillation; K21.9 Gastro-esophageal reflux disease without esophagitis; N40.1 Benign prostatic hyperplasia with lower urinary tract symptoms; E11.51 Type 2 diabetes mellitus with diabetic peripheral angiopathy without gangrene; E11.22 Type 2 diabetes mellitus with diabetic chronic kidney disease; N18.9 Chronic kidney disease, unspecified; E66.01 Morbid (severe) obesity due to excess calories; Z95.1 Presence of aortocoronary bypass graft; M10.9 Gout, unspecified; L40.9 Psoriasis, unspecified; W18.30XA Fall on same level, unspecified, initial encounter; Y92.099 Unspecified place in other non-institutional residence as the place of occurrence of the external cause; Y99.9 Unspecified external cause status; Z96.643 Presence of artificial hip joint, bilateral; Z86.73 Personal history of transient ischemic attack (TIA), and cerebral infarction without residual deficits
CPT/HCPCS: 0241U-QW; 36415; 70450-TC; 71045-TC-FY; 72125-TC; 72170-TC-FY; 73564-TC-LT-FY; 73564-TC-RT-FY; 80048; 80053; 81003; 82962; 83735; 84100; 84484; 85025; 85027; 87086; 87186; 87635; 93005; 93010; 93306-TC; 97116-GP; 97161-GP; 99285-25; G0378

== ENCOUNTER 2024-07-08 16:55 | Inpatient (IN) | payer OTHER, BC ==
[2024-07-08] MEDS ORDERED: PIPERACILLIN/TAZOBACTAM 4.5 GM VIAL IVPB ONE (17:46)
[2024-07-08] MEDS ORDERED: VANCOMYCIN 1,000 MG VIAL (RESTRICTED TO ID ONLY) ONE (17:46)
[2024-07-08 17:53] LABS: ABSOLUTE IMMATURE GRANULOCYTES 0.04 x10^3/uL (0.0-0.031); BASOPHILS # 0.01 x10^3/uL (0.01-0.08); EOSINOPHIL % 0.5 % (0.8-7.0); EOSINOPHILS # 0.04 x10^3/uL (0.04-0.54); HEMATOCRIT 41.2 % (40.1-51.0); HEMOGLOBIN 13.6 g/dL (13.7-17.5); MEAN CELL VOLUME 94.5 fl (79.0-92.2); MEAN PLT VOLUME 11.3 fl (9.4-12.4); MONOCYTE # 1.18 x10^3/uL (0.30-0.82); MONOCYTE % 15.2 % (5.3-12.2); PLATELET COUNT 102 x10^3/uL (163-337); RDW 13.1 % (12.6-16.6)
[2024-07-08] MEDS: PIPERACILLIN/TAZOB 4.5 GM 4.5 GM in DEXTROSE 5%-WATER 100 ML IVPB ONE (18:02)
[2024-07-08 18:13] LABS: ALK PHOS 54 U/L (45-117); ANION GAP 8 mmol/L (4-13); BILIRUBIN,TOTAL 1.1 mg/dl (0.2-1); CALCIUM 9.1 mg/dl (8.5-10.1); CHLORIDE 96 mmol/L (98-107); CO2 31 mmol/L (21-32); CREATININE 1.6 mg/dl (0.6-1.3); GLUCOSE,RANDOM 169 mg/dl (74-106); POTASSIUM 3.6 mmol/L (3.5-5.1); SGOT/AST 15 U/L (15-37); SGPT/ALT 12 U/L (7-52); SODIUM 135 mmol/L (136-145); TOT PROT 6.6 g/dl (6.4-8.2)
[2024-07-08] MEDS: VANCOMYCIN 1,000 MG in DEXTROSE 5%-WATER - 250 ML IVPB ONE (18:39)
[2024-07-08 19:50] LABS: HCV DIAGNOSTIC IN-HOUSE W/RFLX NON-REACTIVE (NONREACTIVE); HIV INTERPRETATION NEGATIVE (NEGATIVE)
[2024-07-08 22:22] LABS: ERYTHROCYTE SEDIMENTATION RATE 49 mm/hr (0-20)
[2024-07-08 22:46] LABS: EPITHELIAL CELLS 0-5 /hpf
[2024-07-08 23:35] VITALS: BMI 43.1
[2024-07-09] MEDS ORDERED: oxyCODONE HCL 5 MG TABLET PO PRN (06:17)
[2024-07-09] MEDS: INSULIN ASPART SLIDING SCALE (NOVOLOG) 1 VIAL SQ SCH (06:32)
[2024-07-09] MEDS: ACETAMINOPHEN 325 MG TABLET (FP) PO PRN (06:33)
[2024-07-09] MEDS: LEVOTHYROXINE NA 50 MCG TABLET (FP) PO SCH (06:33)
[2024-07-09 07:50] LABS: ABSOLUTE IMMATURE GRANULOCYTES 0.05 x10^3/uL (0.0-0.031); BASOPHILS # 0.02 x10^3/uL (0.01-0.08); EOSINOPHIL % 0.6 % (0.8-7.0); EOSINOPHILS # 0.04 x10^3/uL (0.04-0.54); HEMATOCRIT 37.9 % (40.1-51.0); HEMOGLOBIN 12.7 g/dL (13.7-17.5); MCHC 33.5 g/dl (32.3-36.5); MEAN CELL VOLUME 93.3 fl (79.0-92.2); MEAN PLT VOLUME 11.3 fl (9.4-12.4); MONOCYTE # 0.94 x10^3/uL (0.30-0.82); MONOCYTE % 15.1 % (5.3-12.2); PLATELET COUNT 90 x10^3/uL (163-337)
[2024-07-09] MEDS: PRIMIDONE 50 MG TABLET PO SCH (08:08)
[2024-07-09 09:09] LABS: CALCIUM 8.8 mg/dl (8.5-10.1); CREATININE 1.4 mg/dl (0.6-1.3); POTASSIUM 3.5 mmol/L (3.5-5.1)
[2024-07-09] MEDS: APIXABAN 2.5 MG TABLET PO SCH (09:22)
[2024-07-09] MEDS: PIPERACILLIN/TAZOB 3.375 GM 3.375 GM in DEXTROSE 5%-WATER - 50 ML IVPB SCH (09:22)
[2024-07-09] MEDS: metoPROLOL SUCCINATE 25 MG TAB.SR.24H (FP) PO SCH (09:23)
[2024-07-09] MEDS: BUDESONIDE/FORMETEROL FUMARATE 160/4.5 mcg INHALER IH SCH (09:24)
[2024-07-09] MEDS ORDERED: VANCOMYCIN/WATER 1250 MG 1,250 MG/250 ML BAG IVPB SCH ×2 (18:00)
[2024-07-09] MEDS: ROSUVASTATIN CA 10 MG TABLET PO SCH (21:43)
[2024-07-10 08:12] LABS: HEMOGLOBIN 12.1 g/dL (13.7-17.5); MCHC 33.6 g/dl (32.3-36.5); MEAN CELL VOLUME 94.5 fl (79.0-92.2); MEAN PLT VOLUME 11.9 fl (9.4-12.4); PLATELET COUNT 90 x10^3/uL (163-337)
[2024-07-10 09:08] LABS: CALCIUM 8.4 mg/dl (8.5-10.1); CREATININE 1.3 mg/dl (0.6-1.3); MAGNESIUM 1.9 mg/dL (1.8-2.4); PHOSPHOROUS 3.1 (2.5-4.9); POTASSIUM 3.6 mmol/L (3.5-5.1)
[2024-07-10] MEDS: PIPERACILLIN/TAZOB 3.375 GM 3.375 GM in DEXTROSE 5%-WATER - 50 ML IVPB SCH (17:09)
[2024-07-12] MEDS: VANCOMYCIN/WATER FOR INJ (PEG) 1,000 MG/200 ML BAG IVPB SCH (19:54)
[2024-07-13] MEDS: CEFTRIAXONE 1 GM in DEXTROSE 5%-WATER - 50 ML IVPB SCH (09:39)
[2024-07-13] MEDS: PIPERACILLIN/TAZOB 4.5 GM 4.5 GM in DEXTROSE 5%-WATER 100 ML IVPB SCH (13:04)
[2024-07-13] MEDS: ALBUTEROL SO4 2.5/IPRATROPIUM 0.5 INH SOL 3 ML VIAL.NEB. NEB SCH (17:10)
[2024-07-14 08:22] LABS: ABSOLUTE IMMATURE GRANULOCYTES 0.12 x10^3/uL (0.0-0.031); BASOPHILS # 0.03 x10^3/uL (0.01-0.08); EOSINOPHIL % 1.5 % (0.8-7.0); EOSINOPHILS # 0.09 x10^3/uL (0.04-0.54); HEMATOCRIT 38.5 % (40.1-51.0); HEMOGLOBIN 12.6 g/dL (13.7-17.5); MCHC 32.7 g/dl (32.3-36.5); MEAN CELL VOLUME 94.4 fl (79.0-92.2); MONOCYTE # 0.73 x10^3/uL (0.30-0.82); MONOCYTE % 11.9 % (5.3-12.2); PLATELET COUNT 157 x10^3/uL (163-337)
[2024-07-14 09:11] LABS: ALBUMIN 3.5 g/dl (3.4-5.0); BILIRUBIN,TOTAL 0.8 mg/dl (0.2-1); CALCIUM 8.8 mg/dl (8.5-10.1); CREATININE 1.2 mg/dl (0.6-1.3); POTASSIUM 4.3 mmol/L (3.5-5.1); TOT PROT 5.9 g/dl (6.4-8.2)
[2024-07-14] MEDS: DOCUSATE SODIUM 100 MG CAPSULE (FP) PO PRN (10:52)
[2024-07-14] MEDS: FUROSEMIDE 10 MG/1 ML VIAL (4 ML VIAL) IVPUSH ONE (12:06)
[2024-07-15] MEDS: FUROSEMIDE 40 MG/4 ML INJECTABLE VIAL IVPUSH ONE (13:37)
[2024-07-16 06:34] VITALS: RESP 18
[2024-07-16 07:47] LABS: ABSOLUTE IMMATURE GRANULOCYTES 0.16 x10^3/uL (0.0-0.031); BASOPHILS # 0.02 x10^3/uL (0.01-0.08); EOSINOPHIL % 1.8 % (0.8-7.0); HEMATOCRIT 38.3 % (40.1-51.0); HEMOGLOBIN 12.8 g/dL (13.7-17.5); MCHC 33.4 g/dl (32.3-36.5); MEAN CELL VOLUME 93.6 fl (79.0-92.2); MEAN PLT VOLUME 10.5 fl (9.4-12.4); MONOCYTE # 0.65 x10^3/uL (0.30-0.82); MONOCYTE % 11.6 % (5.3-12.2); PLATELET COUNT 160 x10^3/uL (163-337); RDW 13.2 % (12.6-16.6)
[2024-07-16 08:55] LABS: ALBUMIN 3.5 g/dl (3.4-5.0); BILIRUBIN,TOTAL 0.9 mg/dl (0.2-1); CALCIUM 8.7 mg/dl (8.5-10.1); CREATININE 1.3 mg/dl (0.6-1.3); POTASSIUM 3.6 mmol/L (3.5-5.1)
[2024-07-16 10:03] VITALS: BP 129/60; PULSE 98; TEMP 98.2
== END 2024-07-16 16:29 | disposition home or self-care (01) | DRG 603 ==
LOC: FER 16:55 → FM/S 22:18
PROVIDERS: ADMIT Hospitalist
DX: L03.115 Cellulitis of right lower limb (principal); I50.32 Chronic diastolic (congestive) heart failure; Z68.41 Body mass index [BMI] 40.0-44.9, adult; E03.9 Hypothyroidism, unspecified; I11.0 Hypertensive heart disease with heart failure; E11.51 Type 2 diabetes mellitus with diabetic peripheral angiopathy without gangrene; J44.9 Chronic obstructive pulmonary disease, unspecified; I48.91 Unspecified atrial fibrillation; E78.5 Hyperlipidemia, unspecified; E66.01 Morbid (severe) obesity due to excess calories; I87.2 Venous insufficiency (chronic) (peripheral)
CPT/HCPCS: 36415; 71045-TC-FY; 73552-TC-RT-FY; 73562-TC-RT-FY; 73590-TC-RT-FY; 73610-TC-RT-FY; 73630-TC-RT-FY; 80048; 80053; 81003; 81015; 82962; 83735; 84100; 85025; 85027; 85651; 86140; 86803; 87040; 87086; 87186; 87389; 93005; 93971-TC; 94640; 97116-GP; 97162-GP; 99285-25